=== PATIENT | female | born 2005 | race Caucasian/White ===

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

== ENCOUNTER 2024-05-07 22:09 | Emergency (ER) | payer MEDICAID, SELFPAY ==
[2024-05-07 22:09] VITALS: BP 124/74; PULSE 101; RESP 15; TEMP 36.6; O2SAT 100; BMI 22.4
--- NOTE | 2024-05-07 22:15 | EDS_ITS ---
HPI HPI - Female History of Present Illness Chief Complaint: Vag Bld, Preg PFSH PFSH Home Medications ?Medication ?Instructions ?Recorded ?Last Taken ?Type cephalexin 500 mg capsule 500 mg PO TID #21 caps 05/07 Unknown Rx Allergy/AdvReac Type Severity Reaction Status Date / Time No Known Allergies Allergy Verified 05/07/24 22:09 Surgical History History of appendectomy Social History (Updated 05/07/24 @ 22:24 by Blanche Mota) household members: significant other housing: house Smoking Status: Current every day smoker tobacco type: e-cigarettes EXAM Physical Exam Const Vital Signs: 05/07/24 22:09 Temperature 97.9 F Temperature Source Temporal Pulse Rate 101 H Respiratory Rate 15 Blood Pressure 124/74 H Blood Pressure Mean 90 Pulse Ox 100 Oxygen Delivery Method Room Air [facility] MDM Narrative Medical decision making narrative: HISTORY OF PRESENT ILLNESS: 18-year-old female here with concern for lower abdominal cramping, red-brown bleeding. Notes been intermittent for last 2 days. No she is approximate 15 weeks . Notes she is a G 1 P 0. Notes no pain now but notes intermittent spotting. REVIEW OF SYSTEMS: Pertinent positives: Abdominal cramping, vaginal bleeding Pertinent negatives: Vomiting, fever, urinary complaint PHYSICAL EXAM: Nursing triage notes reviewed, Vital signs reviewed Constitutional: please see mdm HENT: MMM Eyes: Pupils equal round and reactive to light, Extraocular muscles intact Neck: No stridor, no JVD, full neck ROM Lungs: Clear to auscultation, No wheezing or rales. No increased work of breathing, no conversational dyspnea, no accessory muscle use, no nasal flaring. No respiratory distress noted Heart: Regular rate and rhythm, No murmurs, No rubs and No gallops, 2+ distal pulses (radial, femoral, posterior tibial) in all extremities Abdomen: Soft, gravid uterus, there is no tenderness, rigidity, rebound or guarding, no obvious peritoneal signs, no palpable pulsatile abdominal masses, no auscultated abdominal bruit : No CVAT Extremities: No edema Neuro: No new focal neurological deficits, cranial nerves II through XII intact, 5/5 strength in all present extremities. Intact sensation to light touch in all present extremities, 2+ reflexes bilateral patella tendons. Skin: No rash or lesions noted MEDICAL DECISION MAKING: Chief Complaint: Abdominal cramping, vaginal bleeding External records reviewed: Reviewed patient's prior imaging studies. No recent ultrasounds noted Factors affecting care: none Social determinants of health: none History obtained from others: none Consults: none [facility] Narrative: Patient was initially hemodynamically stable, afebrile and nontoxic-appearing. Exam with gravid uterus otherwise benign abdomen. I considered the following differential diagnosis: Miscarriage, placental abruption, I obtained labs including blood type, CBC, BMP, urinalysis and pelvic ultrasound. Pelvic police crime scene technician need to be called in. ALL IMAGES (IF OBTAINED) HAVE BEEN PERSONALLY REVIEWED AND INTERPRETED BY MYSELF. CBC with no leukocytosis, noted mild anemia, no thrombocytopenia BMP with mild hypokalemia otherwise no significant electrolyte abnormalities, no sign of endorgan hypoperfusion or metabolic acidosis with a normal anion gap and bicarb Urinalysis with signs of inflammation and asymptomatic bacteria. Will send for culture and write Keflex. hCG Quant greater than 37,000 consistent with second trimester . Awaiting transvaginal ultrasound The patient and/or family, caregivers express understanding. The patient and/or family, caregivers agrees with the plan. Shared decision making: I will have a discussion with the patient and or visitors regarding risk/benefits of further testing or admission. They will be made aware of of the risk/benefits inherent in this decision they will be given the opportunity to voice understanding. Total critical care time today provided was at least 0 minutes. This excludes separately billable procedures. Critical care time (if documented) is secondary to the patient having high probability of clinically significant/life threatening deterioration in the patient's condition which required my urgent intervention. Impression: 1. Second trimester 2. Abdominal pain 3. Vaginal bleed Dispo: Pending ultrasound and final disposition. Signed out to overnight physician ( Dr. Pham) pending ultrasound, ABO blood type. This note was generated with [employer] dictation software. It may contain incorrect words, spelling, and punctuation that were not noted in review of the chart prior to signing. Lab Data Labs: Laboratory Results - last 24 hr 05/07/24 05/07/24 22:45 22:53 WBC 10.3 RBC 4.02 L Hgb 11.9 L Hct 34.3 L MCV 85.3 MCH 29.6 MCHC 34.7 RDW Std Deviation 39.1 RDW Coeff of Yessy 12.7 Plt Count 317 MPV 9.1 Immature Gran % (Auto) 0.400 Neut % (Auto) 57.4 Lymph % (Auto) 31.1 [place] % (Auto) 8.2 Eos % (Auto) 2.5 Baso % (Auto) 0.4 Absolute Neuts (auto) 5.9 Absolute Lymphs (auto) 3.20 Nucleated RBC % 0 Sodium 137 Potassium 3.3 L Chloride 106 Carbon Dioxide 25.0 Anion Gap 6 BUN 7 Creatinine 0.43 L Estim Creat Clear Calc 212.28 Est GFR (MDRD) Af Amer 239 Est GFR (MDRD) Non-Af 197 BUN/Creatinine Ratio 16.1 Glucose 92 Calcium 8.9 HCG, Quant 27573 H Urine Color Yellow Urine Clarity Cloudy Urine pH 6.0 Ur Specific Ray 1.025 Urine Protein 30 H Urine Glucose (UA) Normal Urine Ketones 50 H Urine Occult Blood 250 H Urine Nitrite Negative Urine Bilirubin Negative Urine Urobilinogen 1 H Ur Leukocyte Esterase 500 H Urine RBC 0-5 SEEN Urine WBC 25-50 SEEN Ur Squamous Epith Cells 10-25 SEEN Urine Bacteria 2+ Urine Mucus 1+ Discharge Plan Triage Chief Complaint: Vag Bld, Preg ED Provider: Joseph Zaragoza Dx/Rx/DC Orders Instructions: ED Pelvic Pain Preg UKO 2 or 3 Tri Prescriptions: New cephalexin 500 mg capsule 500 mg PO TID Qty: 21 0RF Primary Care Provider: Oseas Alvarez Referrals: Aldo Collins MD [Med Staff - Active Staff] - Activity Restrictions/Additional Instructions: Thank you for trusting us with your care today! Please take Tylenol (2 pills, 650 mg) every 6 hours as needed for pain and fever control. Your urine showed signs of inflammation and bacteria. This can sometimes cause issues going forward in so I sent your urine for culture and we will prescribe you antibiotics. Please take antibiotics as prescribed until course is complete. Please return to the emergency department if your symptoms change or worsen. Please follow with your primary care physician for further outpatient evaluation and management. Print Language: Fijian
--- NOTE | 2024-05-07 22:17 | US_ITS ---
PROCEDURE: OB LIMITED (NO BIOMETRICS) REASON FOR EXAM: Lower pelvic pain and cramping, vaginal bleeding dark brown x2 days COMPARISON: None. FINDINGS: Comments: Single live intrauterine with heart tones 152 beats per minute. Presentation is cephalic. Anterior placenta without evidence of previa. Small hypoechoic area visualized along the anterior aspect of the uterine wall may represent possible area of placenta abruption versus dilated vessels. Cervix appears closed. Cervical length 3.5 cm. Amniotic fluid subjectively appears within limits. Maximum pocket 4 cm. Adnexa appear unremarkable. No free fluid. ESTIMATED GESTATIONAL AGE: By LMP: 15 weeks and 4 days ESTIMATED DATE OF DELIVERY: By LMP: 10/25/2024 US/OB Limited (No Biometrics) IMPRESSION: Single live intrauterine with heart tones 152 beats per minute. . Anterior placenta without evidence of previa. Small hypoechoic area visualized along the anterior aspect of the uterine wall may represent possible area of placenta abruption versus dilated vessels. Cervix ap pears closed. Cervical length 3.5 cm. Clinically correlate may follow-up with repeat Ob ultrasound. Amniotic fluid subjectively appears within limits. Maximum pocket 4 cm. Reading Location: [id number]
[2024-05-07 23:00] LABS: Absolute Neutrophil Count 5.9 X10^3/uL (2.0-7.7); Basophil# 0.04 X10^3/uL; Basophil% 0.4 % (0-1); Eosinophil# 0.26 X10^3/uL; Eosinophils% 2.5 % (0-5); Hematocrit 34.3 % (37-47); Hemoglobin 11.9 g/dL (12.0-15.0); Lymphocyte % 31.1 % (19-41); Mean Corp Hgb Conc 34.7 g/dL (32-36); Mean Corpuscular Hgb 29.6 pg (27.0-32.0); Mean Corpuscular Volume 85.3 fL (81-99); Mean Platelet Vol. 9.1 fl (6.2-12.0); Monocyte# 0.84 X10^3/uL; Monocyte% 8.2 % (0-10); NRBC Flagged by Analyzer 0 % (0-5); Neutrophil # 5.92 X10^3/uL (2.7-7.7); Neutrophil % 57.4 % (47-70); Platelet Count 317 K/mm3 (150-450); RBC Distribution Width CV 12.7 % (11.6-14.6); RBC Distribution Width SD 39.1 fl (35.1-43.9); Red Blood Count 4.02 M/mm3 (4.2-5.4); White Blood Count 10.3 K/mm3 (4.4-11.0)
[2024-05-07 23:02] LABS: Color, Urine Yellow (Yellow); Glucose, Dipstick Normal (Normal); Ketone-Dipstick 50 mg/dl (Negative); Leukocyte Esterase-Dipstick 500 /ul (Negative); Nitrite-Dipstick Negative (Negative); Occult Blood-Urine 250 /ul (Negative); Protein-Dipstick 30 mg/dl (Negative); Specific Gravity, Urine 1.025 (1.002-1.030); Urine Bilirubin Dipstick Negative (Negative); Urine Clarity Cloudy (Clear); Urine Urobilinogen 1 mg/dl (Normal)
[2024-05-07 23:09] LABS: White Blood Cells 25-50 SEEN /hpf (0-5)
[2024-05-07 23:10] LABS: Bacteria 2+ /hpf (None Seen); Red Blood Cells-Urine 0-5 SEEN /hpf (0-5); Squamous Epithelial Cells - UA 10-25 SEEN /hpf (5-10)
[2024-05-07 23:11] LABS: Mucous, Urine 1+ /hpf (<or=2+)
[2024-05-07 23:13] LABS: Anion Gap 6 (5-15); BUN 7 mg/dL (7-18); BUN/Creat Ratio 16.1 RATIO (10-20); Calcium,Total 8.9 mg/dL (8.5-10.1); Chloride 106 mmol/L (98-107); Creatinine, Serum 0.43 mg/dL (0.55-1.02); EST Glomerular Filtration Rate 197 mL/min (>60); Est Glom Filt Rate - Afr Amer 239 mL/min (>60); Estimated Creatinine Clearance 212.28 ml/min; Glucose 92 mg/dL (74-106); Potassium 3.3 mmol/L (3.5-5.1); Sodium Level 137 mmol/L (136-145)
[2024-05-07 23:36] LABS: hCG Titer Quant., Serum 37655 mIU/mL (1-3)
[2024-05-08 00:09] VITALS: BP 101/68; PULSE 89; RESP 18; O2SAT 100
--- NOTE | 2024-05-08 01:06 | ED.VIS.FEGU ---
HPI HPI - Female History of Present Illness Chief Complaint: Vag Bld, Preg PFSH PFSH Home Medications ?Medication ?Instructions ?Recorded ?Last Taken ?Type aspirin 81 mg tablet,delayed 81 mg PO DAILY 05/07/24 Unknown History release cephalexin 500 mg capsule 500 mg PO TID #21 caps 05/07/24 Unknown Rx Allergy/AdvReac Type Severity Reaction Status Date / Time No Known Allergies Allergy Verified 05/07/24 22:09 Surgical History History of appendectomy Social History (Updated 05/07/24 @ 22:24 by Blanche Mota) household members: significant other housing: house Smoking Status: Current every day smoker tobacco type: e-cigarettes EXAM Physical Exam Const Vital Signs: 05/07/24 22:09 05/08/24 00:09 Temperature 97.9 F Temperature Source Temporal Pulse Rate 101 H 89 Respiratory Rate 15 18 Blood Pressure 124/74 H 101/68 Blood Pressure Mean 90 79 Pulse Ox 100 100 Oxygen Delivery Method Room Air Room Air [employer] Lab Data Labs: Laboratory Results - last 24 hr 05/07/24 05/07/24 22:45 22:53 WBC 10.3 RBC 4.02 L Hgb 11.9 L Hct 34.3 L MCV 85.3 MCH 29.6 MCHC 34.7 RDW Std Deviation 39.1 RDW Coeff of Yessy 12.7 Plt Count 317 MPV 9.1 Immature Gran % (Auto) 0.400 Neut % (Auto) 57.4 Lymph % (Auto) 31.1 [place] % (Auto) 8.2 Eos % (Auto) 2.5 Baso % (Auto) 0.4 Absolute Neuts (auto) 5.9 Absolute Lymphs (auto) 3.20 Nucleated RBC % 0 Sodium 137 Potassium 3.3 L Chloride 106 Carbon Dioxide 25.0 Anion Gap 6 BUN 7 Creatinine 0.43 L Estim Creat Clear Calc 212.28 Est GFR (MDRD) Af Amer 239 Est GFR (MDRD) Non-Af 197 BUN/Creatinine Ratio 16.1 Glucose 92 Calcium 8.9 HCG, Quant 84120 H Urine Color Yellow Urine Clarity Cloudy Urine pH 6.0 Ur Specific [place] 1.025 Urine Protein 30 H Urine Glucose (UA) Normal Urine Ketones 50 H Urine Occult Blood 250 H Urine Nitrite Negative Urine Bilirubin Negative Urine Urobilinogen 1 H Ur Leukocyte Esterase 500 H Urine RBC 0-5 SEEN Urine WBC 25-50 SEEN Ur Squamous Epith Cells 10-25 SEEN Urine Bacteria 2+ Urine Mucus 1+ Blood Type O POSITIVE Radiography Diagnostic Testing: Clinical Impression(s) from Imaging Studies Obstetrics Ultrasound 05/07/24 22:17 IMPRESSION: Single live intrauterine with heart tones 152 beats per minute. . Anterior placenta without evidence of previa. Small hypoechoic area visualized along the anterior aspect of the uterine wall may represent possible area of placenta abruption versus dilated vessels. Cervix appears closed. Cervical length 3.5 cm. Clinically correlate may follow-up with repeat Ob ultrasound. Amniotic fluid subjectively appears within limits. Maximum pocket 4 cm. Reading Location: [id number] Discharge Plan Triage Chief Complaint: Vag Bld, Preg ED Provider: Joseph Zaragoza Dx/Rx/DC Orders Instructions: ED Pelvic Pain Preg UKO 2 or 3 Tri Prescriptions: New cephalexin 500 mg capsule 500 mg PO TID Qty: 21 0RF No Action aspirin 81 mg tablet,delayed release (DR/EC) 81 mg PO DAILY Primary Care Provider: Oseas Alvarez Referrals: Aldo Collins MD [Med Staff - Active Staff] - Activity Restrictions/Additional Instructions: Thank you for trusting us with your care today! Please take Tylenol (2 pills, 650 mg) every 6 hours as needed for pain and fever control. Your urine showed signs of inflammation and bacteria. This can sometimes cause issues going forward in so I sent your urine for culture and we will prescribe you antibiotics. Please take antibiotics as prescribed until course is complete. Please return to the emergency department if your symptoms change or worsen. Please follow with your primary care physician for further outpatient evaluation and management. Print Language: Setswana
[2024-05-08] MEDS: Cephalexin 250 MG Capsule 500 MG PO (01:13)
== END 2024-05-08 01:19 | disposition home or self-care (01) ==
PROVIDERS: Emergency Provider Emergency Medicine; PCP Family Medicine; Visit Provider Emergency Medicine
DX: O20.9 Hemorrhage in early pregnancy, unspecified (principal); O99.891 Other specified diseases and conditions complicating pregnancy; R10.30 Lower abdominal pain, unspecified; R82.998 Other abnormal findings in urine; O99.012 Anemia complicating pregnancy, second trimester; O99.282 Endocrine, nutritional and metabolic diseases complicating pregnancy, second trimester; E87.6 Hypokalemia; F17.290 Nicotine dependence, other tobacco product, uncomplicated; O99.332 Smoking (tobacco) complicating pregnancy, second trimester; Z3A.15 15 weeks gestation of pregnancy
CPT/HCPCS: 76815; 80048; 81001; 84702; 85025; 86900; 86901; 87086; 87088; 99282; A4216

== ENCOUNTER 2024-08-31 13:15 | Outpatient (CLI) | payer MEDICAID, SELFPAY ==
[2024-08-31 13:24] VITALS: BMI 29.7
[2024-08-31 13:34] VITALS: BP 117/65; PULSE 111; RESP 16; TEMP 36.4; O2SAT 91
[2024-08-31 14:03] LABS: Bacteria 0 SEEN /hpf (None Seen); Mucous, Urine 0 SEEN /hpf (<or=2+); White Blood Cells 0 SEEN /hpf (0-5)
[2024-08-31 14:04] LABS: Color, Urine Yellow (Yellow); Glucose, Dipstick Normal (Normal); Ketone-Dipstick Negative (Negative); Leukocyte Esterase-Dipstick 100 /ul (Negative); Nitrite-Dipstick Negative (Negative); Occult Blood-Urine 250 /ul (Negative); Protein-Dipstick 30 mg/dl (Negative); Specific Gravity, Urine 1.005 (1.002-1.030); Urine Bilirubin Dipstick Negative (Negative); Urine Clarity Sl. Cloudy (Clear); Urine Urobilinogen Normal (Normal)
[2024-08-31 14:12] LABS: Red Blood Cells-Urine > 100 SEEN /hpf (0-5)
[2024-08-31 14:13] LABS: Renal Epithelial Cells 0-5 SEEN /hpf (0-5); Squamous Epithelial Cells - UA 0-5 SEEN /hpf (5-10)
--- NOTE | 2024-08-31 19:10 | OB.TRI.NOTE ---
HPI - General HPI Narrative LESLIE AYOUB is a 19 F at 32 weeks gestation who presents with vaginal bleeding after intercourse. Maternal Data Information [facility] Calculator Estimated Delivery Date Method Current WG Current Estimate 10/25/24 Manual 32w 1d PFSH PFSH Home Medications ?Medication ?Instructions ?Recorded ?Last Taken ?Type aspirin 81 mg tablet,delayed 81 mg PO DAILY 05/07/24 08/29/24 08:00 History release 81 mg vits no.130-ferrous fum 1 tab PO DAILY 08/31/24 Unknown History 27 mg iron-folic acid 800 mcg tablet ( Vitamin) Allergy/AdvReac Type Severity Reaction Status Date / Time No Known Allergies Allergy Verified 08/31/24 13:29 Surgical History History of appendectomy Social History (Updated 05/07/24 @ 22:24 by Blanche Mota) household members: significant other housing: house Smoking Status: Current every day smoker tobacco type: e-cigarettes ROS Eyes Eyes: Denies blurry vision Cardiovascular Cardiovascular: Reports none; Denies chest pain at rest, chest pain with activity or dizziness Respiratory/Chest Respiratory/Chest: Denies cough or dyspnea Gastrointestinal Gastrointestinal: Reports none and other; Denies diarrhea or vomiting Genitourinary Genitourinary: Denies dysuria Musculoskeletal Musculoskeletal: Reports none Integumentary Integumentary: Reports none; Denies rash Neurologic Neurologic: Denies dizziness, headache(s) or other visual disturbances Psychiatric Psychiatric: Reports none Physical Exam Const alert and no apparent distress General Appearance: cooperative Orientation / Consciousness: awake Exam Limitations: no limitations HEENT normocephalic Eyes General Eye: normal appearance of both eyes Neck full ROM Chest inspection of chest normal Resp normal respiratory effort and normal air movement Effort and Inspection: symmetric chest movement Auscultation: clear to auscultation bilaterally Cardio regular rate GI soft to palpation, non-tender and non-distended Inspection: and other Back/Spine normal ROM Extremity full ROM, normal capillary refill and no calf tenderness Skin no rashes or lesions noted Neuro oriented x3 and CN's II-XII intact bilaterally Psych mental status grossly normal NST FHR Rate Baby A Baseline: 130 Variability:: Moderate Accelerations:: 15 x 15 Decelerations:: None NST Reactive:: Yes Uterine Activity:: none Assessment & Plan (1) Vaginal bleeding in : (2) 32 weeks gestation of : (3) PCB (post coital bleeding): PLAN: Plan CE closed- small amount of dark brown blood on glove No active bleeding Denies any cramps or contractions UA- sent for culture D/C home with follow up in office Pelvic rest Dr. Rodriguez notified of A&P
== END 2024-08-31 16:15 | disposition home or self-care (01) ==
LOC: WPOUT 13:19 → WP 13:23
PROVIDERS: PCP Family Medicine; Referring Provider Advanced Practice Midwife; Visit Provider Advanced Practice Midwife
DX: O99.891 Other specified diseases and conditions complicating pregnancy (principal); N93.0 Postcoital and contact bleeding; O99.333 Smoking (tobacco) complicating pregnancy, third trimester; F17.290 Nicotine dependence, other tobacco product, uncomplicated; Z3A.32 32 weeks gestation of pregnancy; Z79.82 Long term (current) use of aspirin
CPT/HCPCS: 59025; 59050; 81001; 87086; 87088; 99221; G0378

== ENCOUNTER 2024-10-12 01:00 | Inpatient (IN) | payer MEDICAID, SELFPAY ==
[2024-10-12] VITALS (82 sets, daily range): BP systolic 109–165; BP diastolic 55–102; PULSE 70–114; RESP 16–20; TEMP 36.5–37.9; O2SAT 88–98; BMI 34.1
--- OUTSIDE RECORDS SUMMARY | 2024-10-12 00:25 | XMS RPT_ITS | CCD ---
Author Organization [facility] Care Team Providers Care Manager Digital Ad Operations Name Role Phone Unavailable Primary Care Provider Unavailmars Alvarez MD, Dr. Farooq Primary Care Provider [phone] Dr. Joseph Zaragoza DO Attending Provider Dr. Joseph Zaragoza DO Emergency Provider [phone] Mitchell FAJARDO, Dr. Whitehead Other Provider Kaycee Pittman CNM Attending Provider Kaycee Pittman CNM Referring Provider Kaycee Pittman Attending Unavailable Kaycee Pittman Referring Unavailable Oseas Alvarez Primary Care Unavailable Donaldo East Attending Unavailable Oseas Alvarez Primary Care Unavailable Joseph Zaragoza Attending Unavailable Charley Medrano Consulting Unavailable Oseas Alvarez Primary Care Unavailable HALEY NAVARRO Attending Unavailable HALEY NAVARRO Attending Unavailable HALEY NAVARRO Referring Unavailable HALEY NAVARRO Attending Unavailable RAMON KARMON Referring Unavailable HALEY NAVARRO Attending Unavailable COREEN PURI Attending Unavailable KORIN MARTINEZ Primary Care Unavailable HALEY NAVARRO Attending Unavailable COREEN PURI Referring Unavailable RAMON, KARMON Referring Unavailable MARGUERITE MATHUR Attending Unavailable RAMON, KARMON Referring Unavailable RAMON KARMON Attending Unavailable RAMON, KARMON Attending Unavailable RAMON, KARMON Referring Unavailable Medications Current Medications Medication Drug Class(es) Dates Sig (Normalized) Sig (Original) aspirin 81 mg delayed release oral tablet (20 sources) Platelet Aggregation Inhibitor, Nonsteroidal Anti-inflammatory Drug Start: 04-04-2024 take 1 tablet by mouth once daily aspirin, enteric coated (ECOTRIN LOW STRENGTH) 81 mg EC tablet Indications: Uncertain dates, antepartum, unspecified trimester (HCC) Take 1 tablet by mouth once daily. 90 tablet 3 04/04/2024 Active azithromycin 500 mg oral tablet (1 source) Macrolide Antimicrobial Start: 04-06-2024 End: 04-06-2024 take 2 tablets by mouth once azithromycin (ZITHROMAX) 500 mg tablet Take 2 tablets by mouth one time only for 1 dose. 2 tablet 04/06/2024 04/06/2024 Active doxycycline monohydrate 100 mg oral capsule (1 source) Tetracycline-class Drug Start: 04-06-2024 End: 04-13-2024 take 1 capsule by mouth twice daily doxycycline monohydrate (MONODOX) 100 mg capsule Indications: Chlamydia infection Take 1 capsule by mouth two times a day for 7 days. 14 capsule 04/06/2024 04/13/2024 Active famotidine 20 mg oral tablet (10 sources) Histamine-2 Receptor Antagonist Start: 08-15-2024 take 1 tablet by mouth twice daily famotidine (PEPCID) 20 mg tablet Take 1 tablet by mouth two times a day. 60 tablet 4 08/15/2024 Active Vit No.101-Qubg-Zoigq ( Vitamin) 27 mg iron- 800 mcg tablet (1 source) Start: 08-31-2024 Vit No.125-Skqe-Ppdpg ( Vitamin) 27 mg iron- 800 mcg tablet Active 1 {tbl} PO DAILY August 31, 2024 12:00am vit,mamta 74/iron/folic ( VITAMIN 1+1 ORAL) (20 sources) vit,mamta 74/iron/folic ( VITAMIN 1+1 ORAL) Take by mouth once daily. Active Completed/Discontinued Medications Medication Drug Class(es) Dates Sig (Normalized) Sig (Original) cephalexin 500 mg oral capsule (4 sources) Cephalosporin Antibacterial Start: 05-07-2024 End: 08-31-2024 take 1 capsule by mouth three times daily Cephalexin 500 mg capsule Discontinued 500 mg PO THREE TIMES A DAY May 07, 2024 1:00am August 31, 2024 1:29pm Start: 07-22-2020 End: 12-20-2023 take 1 capsule by mouth every twelve hours Cephalexin 500 MG capsule Discontinued 500 mg PO EVERY 12 HOURS July 22, 2020 12:00am December 20, 2023 8:08am Desogestrel / Ethinyl Estradiol (1 source) Progestin, Estrogen Start: 08-03-2018 End: 04-04-2024 take 1 tablet by mouth once daily, then take 0.15 tablet by mouth once Desogestrel-Ethinyl Estradiol (APRI) 0.15-0.03 mg per tablet Indications: Encounter for BCP ( control pills) initial prescription , General counseling and advice for contraceptive management Take 1 tablet by mouth once daily. 3 Package 1 08/03/2018 04/04/2024 Discontinued dexamethasone 6 mg oral tablet (2 sources) Corticosteroid Start: 12-29-2022 End: 12-20-2023 take 1 tablet by mouth once daily Dexamethasone 6 mg tablet Discontinued 6 mg PO DAILY December 29, 2022 12:00am December 20, 2023 8:08am Pediatric Multivitamins-Fl (MULTIVITAMINS WITH FLUORIDE) 0.25 mg ORAL Chew (1 source) Start: 09-17-2006 End: 04-04-2024 take 1 tablet by mouth once daily Pediatric Multivitamins-Fl (MULTIVITAMINS WITH FLUORIDE) 0.25 mg ORAL Chew 1 tablet once a day po 100 3 09/17/2006 04/04/2024 Discontinued Problems Active Problems Problem Classification Problem Date Documented Da te Episodic/Chronic Allergic reactions (6 sources) Contact dermatitis due to poison hayde; Translations: [Allergic contact dermatitis due to plants, except food] 08-12-2022 Episodic Fracture of upper limb (1 source) Closed fracture of third metacarpal; Translations: [Unspecified fracture of other metacarpal bone, initial encounter for closed fracture] 12-28-2023 Episodic Hemorrhage during ; abruptio placenta; placenta previa (1 source) Threatened miscarriage; Translations: [Threatened ] 05-16-2024 Episodic Other complications of (1 source) Maternal obesity complicating , childbirth and the puerperium, antepartum; Translations: [Obesity complicating , second trimester] 10-10-2024 Chronic Other complications of (1 source) Urinary tract infection in ; Translations: [Unspecified infection of urinary tract in , unspecified trimester] 05-16-2024 Episodic Other complications of (4 sources) Excessive weight gain in , third trimester; Translations: [Edema or excessive weight gain in , without mention of hypertension, antepartum condition or complication] Onset: 09-05-2024 09-05-2024 Episodic Other female genital disorders (1 source) Vaginal bleeding; Translations: [Abnormal uterine and vaginal bleeding, unspecified] 05-16-2024 Chronic Other female genital disorders (1 source) Abnormal uterine and vaginal bleeding, unspecified; Translations: [Abnormal uterine and vaginal bleeding, unspecified] Onset: 09-07-2024 Chronic Other screening for suspected conditions (not mental disorders or infectious disease) (5 sources) Patient encounter status; Translations: [Encounter for other specified screening] Onset: 07-04-2024 06-09-2024 Episodic Polyhydramnios and other problems of amniotic cavity (14 sources) Polyhydramnios; Translations: [Polyhydramnios, third trimester, not applicable or unspecified] Onset: 09-19-2024 09-19-2024 Episodic Residual codes; unclassified (1 source) Gestation period, 10 weeks; Translations: [10 weeks gestation of ] 04-04-2024 Episodic Residual codes; unclassified (3 sources) Gestation period, 16 weeks; Translations: [16 weeks gestation of ] 05-11-2024 Episodic Residual codes; unclassified (1 source) Gestation period, 23 weeks; Translations: [23 weeks gestation of ] 07-04-2024 Episodic Residual codes; unclassified (1 source) Gestation period, 27 weeks; Translations: [27 weeks gestation of ] 07-27-2024 Episodic Residual codes; unclassified (1 source) Gestation period, 29 weeks; Translations: [29 weeks gestation of ] 08-15-2024 Episodic Residual codes; unclassified (2 sources) Gestation period, 32 weeks; Translations: [32 weeks gestation of ] 09-05-2024 Episodic Residual codes; unclassified (2 sources) Gestation period, 34 weeks; Translations: [34 weeks gestation of ] 09-19-2024 Episodic Residual codes; unclassified (1 source) Gestation period, 36 weeks; Translations: [36 weeks gestation of ] 10-03-2024 Episodic Residual codes; unclassified (1 source) 36 weeks gestation of ; Translations: [36 weeks gestation of (HCC)] Onset: 10-03-2024 Episodic Residual codes; unclassified (1 source) 34 weeks gestation of ; Translations: [34 weeks gestation of (HCC)] Onset: 09-19-2024 Episodic Residual codes; unclassified (1 source) 32 weeks gestation of ; Translations: [32 weeks gestation of ([facility])] Onset: 09-05-2024 Episodic Residual codes; unclassified (1 source) 29 weeks gestation of ; Translations: [29 weeks gestation of (HCC)] Onset: 08-15-2024 Episodic Residual codes; unclassified (1 source) 27 weeks gestation of ; Translations: [27 weeks gestation of ([facility])] Onset: 07-27-2024 Episodic Residual codes; unclassified (2 sources) Gestation period, 37 weeks; Translations: [37 weeks gestation of ] 10-10-2024 Episodic Syncope (3 sources) Syncope and collapse; Translations: [Syncope and collapse] 11-24-2018 Episodic Unclassified (1 source) Excessive weight gain in , third trimester ([facility]) 09-05-2024 Viral infection (2 sources) Disease caused by 2019-nCoV; Translations: [COVID-19] 12-29-2022 Episodic Past or Other Problems Problem Classification Problem Date Documented Da te Episodic/Chronic Bacterial infection; unspecified site (20 sources) Chlamydial infection; Translations: [Chlamydial infection, unspecified] Onset: 04-06-2024 04-06-2024 Episodic Other connective tissue disease (1 source) Pain in left hand; Translations: [Pain in left hand] Onset: 01-13-2024 Episodic Other and delivery including normal (20 sources) with uncertain dates; Translations: [Encounter for supervision of normal , unspecified, unspecified trimester] Onset: 04-04-2024 Resolved: 04-04-2024 04-04-2024 Episodic Residual codes; unclassified (1 source) 23 weeks gestation of ; Translations: [23 weeks gestation of ([facility])] Onset: 07-04-2024 Episodic Residual codes; unclassified (1 source) 16 weeks gestation of ; Translations: [16 weeks gestation of ] Onset: 05-11-2024 Episodic Results Test Name Value Interpretation Reference Range Facility Examination level ultrasound on 10-10-2024 [facility] Radiology Study observation (narrative) [facility] URINE OB DIP B/Oon Glucose Ql (U) Negative Neg mg/dL [facility] Interpretation and review of laboratory results Normal [facility] Protein.monoclonal (U) [Mass/Vol] 30 mg/dL Neg [facility] C. trachomatis+N. gonorrhoea e DNA QUINTIN+probe Ql (Unsp spec)on 10-03-2024 C. trachomatis rRNA QUINTIN+probe Ql (Unsp spec) Not detected Normal Not detected [place] Comment on above: Order Comment: Speci men Type: SWAB Ordering Facility: [facility] Address: [address] [place] [address] Performed By: #### 3 6902-5 #### [facility] CLIA [id number] [address] [place] [address] [place] N. gonorrhoeae rRNA QUINTIN+probe Ql (Unsp spec) Not detected Normal Not detected [place] Comment on above: Order Comment: Speci men Type: SWAB Ordering Facility: [facility] Address: [address] [place] [address] Performed By: #### 3 6902-5 #### [facility] CLIA [id number] [address] [place] [address] [place] ROUTINE, GROUP B ST REPTOCOCCUS BY PCRon 10-03-2024 ROUTINE, GROUP B STREPTOCOCCUS BY PCR Not detected Normal [place] Comment on above: Performed By: #### M AT21 #### [facility] CLIA [id number] [address] [place] [address] URINE OB DIP B/Oon 5 Glucose Ql (U) Negative Neg mg/dL [facility] Protein.monoclonal (U) [Mass/Vol] Negative Neg mg/dL [facility] CNPNon 09-19-2024 CNPN Telephone (OBGYWM) FATOUMATA CLARK ([id number]) 3 F Date Time Provider Department 09/19/24 HALEY NAVARRO OBGYWAlis During your visit today, we recorded the following information about you: Denise Combs RN 09/19/2024 4:40 PM Signed Haley Navarro MD to [facility] Ob-Printer Helper Pool 09/19/24 3:55 PM Result Note Needs growth US in 4 weeks. Polyhydramnios on US today. Haley Navarro MD OBSTETRIC ULTRASOUND I Denise Combs RN 09/19/2024 4:40 PM Signed Tried reaching Pt via phone; However, voicemail box is full at this time and unable to leave a voicemail. Mediastay message sent to Pt. Denise Combs RN Allergies As of Date: 09/19/2024 (No Known Allergies) Date Reviewed: 09/19/2024 Reviewed by: Haley Navarro MD - Fully Assessed Reason for Visit: Appointment [186] Prescriptions as of 09/20/2024 - famotidine (PEPCID) 20 mg tablet Take 1 tablet by mouth two times a day. - aspirin, enteric coated (ECOTRIN LOW STRENGTH) 81 mg EC tablet Take 1 tablet by mouth once daily. - vit,mamta 74/iron/folic ( VITAMIN 1+1 ORAL) Take by mouth once daily. Problem List As Of Date 09/19/2024 Noted Resolved Encounter for care in first trimester *04/04/2024 04/04/2024 Supervision of normal first teen in f*04/04/2024 Chlamydia infection [A74.9] 04/06/2024 Polyhydramnios in third trimester (HCC) [O40.3X*09/19/2024 Encounter Status:Closed by MARGUERITE SANDERS on 09/20/24 Normal [place] Examination level ultrasound on 09-19-2024 [facility] Urine Cultureon 09-03-2024 [facility] Mixed Gram Positive Organisms [place] Count 25,000-50,000 MIXC Mixed contaminants. Submit a new specimen if indicated. Normal [facility] Comment on above: Performed By: #### M 100.2200 ####[facility] [id number] [place], [address] Bilirubin Test strip Ql (U)O rdered By: Kaycee Pittman on 08-31-2024 Bilirubin Ql (U) Negative Negative [facility] Ketones Test strip Ql (U)Ord ered By: Kaycee Pittman on 08-31-2024 Ketones Ql (U) Negative Negative [facility] Microscopic analysis of urin e for red blood cells (RBC)Ordered By: Kaycee Pittman on 08-31-2024 Microscopic analysis of urine for red blood cells (RBC) > 100 SEEN /hpf 0-5 [facility] Mucus LM Ql (Urine sed)Order ed By: Kaycee Pittman on 08-31-2024 Mucus Ql (Urine sed) 0 SEEN /hpf [facility] Nitrite Test strip Ql (U)Ord ered By: Kaycee Pittman on 08-31-2024 Nitrite Ql (U) Negative Negative [facility] OB Triage Physician Noteon 0 08-31-2024 OB Triage Physician Note [facility] Medical Records Department [address] [place] [address] OB Triage Physician Note 08/31/24 1910 MR#: [id number] Acct: [id number] Name: FATOUMATA CLARK Rep #: [id number] : 2005 19 From: Kaycee Pittman CNM PCP: Dr. Oseas Alvarez MD Status:DEP CLI Y Location: [facility] FATOUMATA CLARK, is a 19 F at 32 weeks gestation who presents with vaginal bleeding after intercourse. Maternal Data Information URIAH Calculator Estimated Delivery Date Method Current WG Current Estimate 10/25/24 Manual 32w 1d PFSH PFS Home Medications ???Medication ???Instructions ???Recorded ???Last Taken ???Type aspirin 81 mg tablet,delayed 81 mg PO DAILY 05/07/24 08/29/24 0 8:00 History release 81 mg vits no.130-ferrous fum 1 tab PO DAILY 08/31/24 Unknown Hi story 27 mg iron-folic acid 800 mcg tablet ( Vitamin) Allergy/AdvReac Type Severity Reaction Status Date / Time No Known Allergies Allergy Verified 08/31/24 13:29 Surgical History History of appendectomy Social History (Updated 05/07/24 @ 22:24 by Blanche Mota) household members: significant other housing: house Smoking Status: Current every day smoker tobacco type: e-cigarettes ROS Eyes Eyes: Denies blurry vision Cardiovascular Cardiovascular: Reports none; Denies chest pain at rest, chest pain with activity or dizziness Respiratory/Chest Respiratory/Chest: Denies cough or dyspnea Gastrointestinal Gastrointestinal: Reports none and other; Denies diarrhea or vomiting Genitourinary Genitourinary: Denies dysuria Musculoskeletal Musculoskeletal: Reports none Integumentary Integumentary: Reports none; Denies rash Neurologic Neurologic: Denies dizziness, headache(s) or other visual disturbances Psychiatric Psychiatric: Reports none Physical Exam Const alert and no apparent distress General Appearance: cooperative Orientation / Consciousness: awake Exam Limitations: no limitations HEENT normocephalic Eyes General Eye: normal appearance of both eyes Neck full ROM Chest inspection of chest normal Resp normal respiratory effort and normal air movement Effort and Inspection: symmetric chest movement Auscultation: clear to auscultation bilaterally Cardio regular rate GI soft to palpation, non-tender and non-distended Inspection: and other Back/Spine normal ROM Extremity full ROM, normal capillary refill and no calf tenderness Skin no rashes or lesions noted Neuro oriented x3 and CN's II-XII intact bilaterally Psych mental status grossly normal NST FHR Rate Baby A Baseline: 130 Variability:: Moderate Accelerations:: 15 x 15 Decelerations:: None NST Reactive:: Yes Uterine Activity:: none Assessment Plan (1) Vaginal bleeding in : (2) 32 weeks gestation of : (3) PCB (post coital bleeding): PLAN: Plan CE closed- small amount of dark brown blood on glove No active bleeding Denies any cramps or contractions UA- sent for culture D/C home with follow up in office Pelvic rest Dr. Navarro notified of A P 08/31/241914 Date Kaycee Pittman [facility] Cosigner Signature (if applicable): Date CC: MIGUEL Pittman; Dr. Oseas Alvarez MD Signed Normal [facility] Protein Test strip Ql (U)Ord ered By: Kaycee Pittman on 08-31-2024 Protein Ql (U) 30 mg/dl High Negative [facility] Squamous epithelial cells de tection in urine sediment by light microscopyOrdered By: Kaycee Pittman on 08-31-2024 Epithelial cells.squamous LM Ql (Urine sed) 0-5 SEEN /hpf -10 [facility] Urinalysis, Completeon 08-31 EPI,RENAL 0-5 SEEN Normal 0-5 [facility] Comment on above: Order Comment: CLEAN CATCH Performed By: #### L 400.0001 #### [facility] [address] [place], [address] EPI,SQUAMOUS 0-5 SEEN Normal -10 [facility] Comment on above: Order Comment: CLEAN CATCH Performed By: #### L 400.0001 #### [facility] [address] [place], [address] RBC > 100 SEEN Normal [address] Comment on above: Order Comment: CLEAN CATCH Performed By: #### L 400.0001 #### [facility] [address] [place], [address] BACTERIA 0 SEEN Normal None Seen [facility] Comment on above: Order Comment: CLEAN CATCH Performed By: #### L 400.0001 #### [facility] [address] [place], [address] Mucus Ql (Urine sed) [address] [facility] Comment on above: Order Comment: CLEAN CATCH Performed By: #### L 400.0001 #### [facility] [address] [place], [address] WBC 0 SEEN Normal [address] [place] [address] Comment on above: Order Comment: CLEAN CATCH Performed By: #### L 400.0001 #### [facility] [place], [address] Urine clarityOrdered By: Jos Pittman on 08-31-2024 Clarity (U) Sl. Cloudy Clear [facility] Urine color determinationOrd ered By: Kaycee Pittman on 08-31-2024 Color (U) Yellow Yellow [facility] Urine glucose detectionOrder ed By: Kaycee Pittman on 08-31-2024 Glucose Ql (U) Normal mg/dl Normal [facility] Urine leukocyte esterase det ection by dipstickOrdered By: Kaycee Pittman on 08-31-2024 Leukocyte esterase Test strip Ql (U) 100 /ul High Negative [facility] Urine pHOrdered By: Kaycee Pittman on 08-31-2024 pH (U) 7.0 [pH] 5.0 - 8.0 [facility] Urine sediment bacteria coun t by microscopy (number/high power field)Ordered By: Kaycee Pittman on 08-31-2024 Bacteria LM.HPF (Urine sed) [#/Area] 0 /[HPF] None Seen [facility] Urine sediment renal epithel ial cell count by microscopy (number/high power field)Ordered By: Kaycee Pittman on 08-31-2024 Epithelial cells.renal LM.HPF (Urine sed) [#/Area] 0 /[HPF] 0-5 [facility] Urine specific gravity measu rementOrdered By: Kaycee Pittman on 08-31-2024 Specific gravity (U) [Rel density] 1.005 1.002-1.030 [facility] Urine urobilinogen measureme ntOrdered By: Kaycee Pittman on 08-31-2024 Urobilinogen Ql (U) Normal mg/dl Normal [facility] White blood cell countOrdere d By: Kaycee Pittman on 08-31-2024 White blood cell count 0 SEEN /hpf 0-5 [facility] CBC W Auto Differential pane l (Bld)on 07-27-2024 Basophils (Bld) [#/Vol] 0.07 10*3/uL Normal <0.11 [place] Comment on above: Order Comment: Speci men Type: BLOOD SPECIMEN Ordering Facility: [facility] Address: [address] [place] [address] Performed By: #### 1 6128-1 #### [facility] CLIA [id number] [address] [place] [address] [place] Basophils/100 WBC (Bld) 0.5 % Normal [facility] Comment on above: Order Comment: Speci men Type: BLOOD SPECIMEN Ordering Facility: [facility] Address: [address] [place] [address] Performed By: #### 1 6128-1 #### [facility] CLIA [id number] [address] [place] [address] [place] Differential cell count method Nom (Bld) Auto Normal [place] Comment on above: Order Comment: Speci men Type: BLOOD SPECIMEN Ordering Facility: [facility] Address: [address] [place] [address] Performed By: #### 1 6128-1 #### [facility] CLIA [id number] [address] [place] [address] [place] Eosinophils (Bld) [#/Vol] 0.22 10*3/uL Normal <0.46 [place] Comment on above: Order Comment: Speci men Type: BLOOD SPECIMEN Ordering Facility: [facility] Address: [address] [place] [address] Performed By: #### 1 6128-1 #### [facility] CLIA [id number] [address] [place] [address] [facility] Eosinophils/100 WBC (Bld) 1.7 % Normal [place] Comment on above: Order Comment: Speci men Type: BLOOD SPECIMEN Ordering Facility: [facility] Address: [address] [place] [address] Performed By: #### 1 6128-1 #### [facility] CLIA [id number] [address] [place] [address] [place] Erythrocyte distribution width (RBC) [Ratio] 12.9 % Normal 11.5-15.0 [place] Comment on above: Order Comment: Speci men Type: BLOOD SPECIMEN Ordering Facility: [facility] Address: [address] [place] [address] Performed By: #### 1 6128-1 #### [facility] CLIA [id number] [address] [place] [address] [place] Hematocrit (Bld) [Volume fraction] 33.3 % Low 36.0-46.0 [place] Comment on above: Order Comment: Speci men Type: BLOOD SPECIMEN Ordering Facility: [facility] Address: [address] [place] [address] Performed By: #### 1 6128-1 #### [facility] CLIA [id number] [address] [place] [address] [place] Hemoglobin (Bld) [Mass/Vol] 11.4 g/dL Low 11.5-15.5 [place] Comment on above: Order Comment: Speci men Type: BLOOD SPECIMEN Ordering Facility: [facility] Address: [address] [place] [address] Performed By: #### 1 6128-1 #### [facility] CLIA [id number] [address] [place] [address] [place] Immature granulocytes (Bld) [#/Vol] 0.39 10*3/uL High <0.10 [place] Comment on above: Order Comment: Speci men Type: BLOOD SPECIMEN Ordering Facility: [facility] Address: [address] [place] [address] Performed By: #### 1 6128-1 #### [facility] CLIA [id number] [address] [place] [address] [place] Immature granulocytes/100 WBC (Bld) 3.0 % Normal [place] Comment on above: Order Comment: Speci men Type: BLOOD SPECIMEN Ordering Facility: [facility] Address: [address] [place] [address] Performed By: #### 1 6128-1 #### [facility] CLIA [id number] [address] [place] [address] [place] Lymphocytes (Bld) [#/Vol] 2.51 10*3/uL Normal 1.00-4.00 [place] Comment on above: Order Comment: Speci men Type: BLOOD SPECIMEN Ordering Facility: [facility] Address: [address] [place] [address] Performed By: #### 1 6128-1 #### [facility] CLIA [id number] [address] [place] [address] [place] Lymphocytes/100 WBC (Bld) 19.1 % Normal [place] Comment on above: Order Comment: Speci men Type: BLOOD SPECIMEN Ordering Facility: [facility] Address: [address] [place] [address] Performed By: #### 1 6128-1 #### [facility] CLIA [id number] [address] [place] [address] [place] MCH (RBC) [Entitic mass] 29.5 pg Normal 26.0-34.0 [place] Comment on above: Order Comment: Speci men Type: BLOOD SPECIMEN Ordering Facility: [facility] Address: [address] [place] [address] Performed By: #### 1 6128-1 #### [facility] CLIA [id number] [address] [place] [address] [place] MCHC (RBC) [Mass/Vol] 34.2 g/dL Normal 30.5-36.0 [facility] Comment on above: Order Comment: Speci men Type: BLOOD SPECIMEN Ordering Facility: [facility] Address: [address] [place] [address] Performed By: #### 1 6128-1 #### [facility] CLIA [id number] [address] [place] [address] [place] MCV (RBC) [Entitic vol] 86.3 fL Normal 80.0-100.0 [facility] Comment on above: Order Comment: Speci men Type: BLOOD SPECIMEN Ordering Facility: [facility] Address: [address] [place] [address] Performed By: #### 1 6128-1 #### [facility] CLIA [id number] [address] [place] [address] [place] Monocytes (Bld) [#/Vol] 1.20 10*3/uL High <0.87 [place] Comment on above: Order Comment: Speci men Type: BLOOD SPECIMEN Ordering Facility: [facility] Address: [address] [place] [address] Performed By: #### 1 6128-1 #### [facility] CLIA [id number] [address] [place] [address] [place] Monocytes/100 WBC (Bld) 9.1 % Normal [facility] Comment on above: Order Comment: Speci men Type: BLOOD SPECIMEN Ordering Facility: [facility] Address: [address] [place] [address] Performed By: #### 1 6128-1 #### [facility] CLIA [id number] [address] [place] [address] [place] Neutrophils (Bld) [#/Vol] 8.74 10*3/uL High 1.45-7.50 [place] Comment on above: Order Comment: Speci men Type: BLOOD SPECIMEN Ordering Facility: [facility] Address: [address] [place] [address] Performed By: #### 1 6128-1 #### [facility] CLIA [id number] [address] [place] [address] [place] Neutrophils/100 WBC (Bld) 66.6 % Normal [place] Comment on above: Order Comment: Speci men Type: BLOOD SPECIMEN Ordering Facility: [facility] Address: [address] [place] [address] Performed By: #### 1 6128-1 #### [facility] CLIA [id number] [address] [place] [address] [place] Nucleated RBC (Bld) [#/Vol] 10*3/uL Normal <0.01 [place] Comment on above: Order Comment: Speci men Type: BLOOD SPECIMEN Ordering Facility: [facility] Address: [address] [place] [address] Performed By: #### 1 6128-1 #### [facility] CLIA [id number] [address] [place] [address] [place] Nucleated RBC/100 WBC (Bld) [Ratio] 0.0 /100 WBC Normal [place] Comment on above: Order Comment: Speci men Type: BLOOD SPECIMEN Ordering Facility: [facility] Address: [address] [place] [address] Performed By: #### 1 6128-1 #### [facility] CLIA [id number] [address] [place] [address] [place] Platelet mean volume (Bld) [Entitic vol] 9.0 fL Normal 9.0-12.7 [place] Comment on above: Order Comment: Speci men Type: BLOOD SPECIMEN Ordering Facility: [facility] Address: [address] [place] [address] Performed By: #### 1 6128-1 #### [facility] CLIA [id number] [address] [place] [address] [place] Platelets (Bld) [#/Vol] 300 10*3/uL Normal 150-400 [place] Comment on above: Order Comment: Speci men Type: BLOOD SPECIMEN Ordering Facility: [facility] Address: [address] [place] [address] Performed By: #### 1 6128-1 #### [facility] CLIA [id number] [address] [place] [address] [place] RBC (Bld) [#/Vol] 3.86 10*6/uL Low 3.90-5.20 [facility] Comment on above: Order Comment: Speci men Type: BLOOD SPECIMEN Ordering Facility: [facility] Address: [address] [place] [address] Performed By: #### 1 6128-1 #### [facility] CLIA [id number] [address] [place] [address] [place] WBC (Bld) [#/Vol] 13.13 10*3/uL High 3.70-11.00 [facility] Comment on above: Order Comment: Speci men Type: BLOOD SPECIMEN Ordering Facility: [facility] Address: [address] [place] [address] Performed By: #### 1 6128-1 #### [facility] CLIA [id number] [address] [place] [address] [place] GESTATIONAL GLUCOSE SCREEN, 1-HOUR, 50 GRAM, NON-FASTINGon 07-27-2024 Glucose [Mass/Vol] 118 mg/dL Normal 74-134 [facility] Comment on above: Order Comment: Speci men Type: BLOOD SPECIMEN Ordering Facility: [facility] Address: [address] [place] [address] Result Comment: [facility] Congress of Obstetricians and Gynecologists (Alirio/Marychuy) guidelines state a gestational diabetes mellitus positive screen is made, in women not previously diagnosed with overt diabetes, when the 1 hr plasma glucose level is equal to or above 140 mg/dL. The [facility] [place] recommends a 135 mg/dL cutoff. Performed By: #### G LTGST #### [facility] CLIA [id number] [address] [place] [address] [place] Reagin and Treponema pallidu m IgG and IgM [Interp]on 07-27-2024 T. pallidum IgG+IgM IA Ql (S) Non-Reactive Normal Nonreactive [place] Comment on above: Order Comment: Speci men Type: BLOOD SPECIMEN Ordering Facility: [facility] Address: [address] [place] [address] Performed By: #### 7 3752-8 #### [facility] CLIA [id number] [address] [place] [address] [place] Reagin+T pallidum IgG+IgM Se rPl-Impon 07-27-2024 Reagin and Treponema pallidum IgG and IgM [Interp] Cannot exclude recent Treponemal infection if specimen collected within 7-10 days after appearance of suspect lesions or 2-3 weeks after an exposure. Clinical correlation is required. Normal [place] Comment on above: Order Comment: Speci men Type: BLOOD SPECIMEN Ordering Facility: [facility] Address: [address] [place] [address] Performed By: #### 7 3752-8 #### [facility] CLIA [id number] [address] [place] [address] [place] Examination level ultrasound on 06-09-2024 Indication Standard anatomic survey Impression REMOTE READ The patient is referred for a detailed anatomic survey. - Single, live, intrauterine . - biometry is consistent with the established gestational age. - No malformations were visualized on a complete detailed anatomic survey. - The amniotic fluid volume is normal amount. - The placenta is anterior, fundal. - The Transabdominal cervical length measures 32.9 mm with no evidence of funneling or other dynamic changes. - Not all structural malformations can be detected by ultrasound examination. Recommendations Additional follow-up as clinically indicated. Maternal Assessment Height 157 cm Height (ft) 5 ft Height (in) 2 in Physical Exam Initial weight (lb) 135 lb Initial BMI 24.69 kg/m Maternal assessment other: 1 Para 0 Method Transabdominal ultrasound examination. View: Adequate visualization Noble . Number of fetuses: 1 Dating LMP on: 01/19/2024 GA by LMP 20 w + 1 d URIAH by LMP: 10/25/2024 GA by prior assessment 20 w + 1 d URIAH by prior assessment: 10/25/2024 Ultrasound examination on: 06/08/2024 GA by U/S based upon: AC, BPD, Femur, HC GA by U/S 20 w + 6 d URIAH by U/S: 10/20/2024 Assigned: based on stated URIAH, selected on 06/08/2024 Assigned GA 20 w + 1 d Assigned URIAH: 10/25/2024 General Evaluation Cardiac activity present. FHR 154 bpm. movements: present. Presentation: cephalic Placenta: Placental site: anterior, fundal Umbilical cord: Cord vessels: 3 vessel cord Amniotic fluid: Amount of AF: normal amount. MVP 6.6 cm Growth Overview Exam date GA BPD (mm) HC (mm) AC (mm) FL (mm) HL (mm) EFW (g) 06/08/2024 20w 1d 50.6 90% 178.5 55% 156.3 66% 34.2 83% 33.5 90% 370 74% Biometry Standard BPD 50.6 mm 21w 2d 90% Hadlock OFD 60.6 mm 19w 5d 46% Nicolaides HC 178.5 mm 20w 2d 55% Sunita Cerebellum tr 21.6 mm 20w 3d 81% Hill Nuchal fold 3.3 mm AC 156.3 mm 20w 6d 66% Hadlock Femur 34.2 mm 21w 0d 83% Sunita Humerus 33.5 mm 21w 3d 90% Sunita EFW 370 g 20w 4d 74% Hadlock EFW (lb) 0 lb EFW (oz) 13 oz EFW by: Hadlock (HC-AC-FL) Extended Associate [employer] 7.0 mm CM 4.9 mm 46% Nicolaides Extremities / Bony Struc FL / HC 0.19 61% Hadlock Other Structures FHR 154 bpm Anatomy Cranium: normal Lateral ventricles: normal Choroid plexus: normal Midline falx: normal Cavum septi pellucidi: normal Cerebellum: normal Cisterna magna: normal Head / Neck Vermis: Normal but not required for a standard anatomy exam Neck: Normal but not required for a standard anatomy exam Nuchal fold: Normal but not required for a standard anatomy exam Lips: normal Profile: Normal but not required for a standard anatomy exam Nose: Normal but not required for a standard anatomy exam Face Maxilla: Normal but not required for a standard anatomy exam Mandible: Normal but not required for a standard anatomy exam Orbits: Normal but not required for a standard anatomy exam Lens: Normal but not required for a standard anatomy exam 4-chamber view: normal RVOT view: normal LVOT view: normal 3-vessel view: normal 4-dhcjqd-yczjxlh view: normal Heart / Thorax Situs: situs solitus (normal) Aortic arch view: Normal but not required for a standard anatomy exam SVC: Normal but not required for a standard anatomy exam IVC: Normal but not required for a standard anatomy exam Cardiac axis: normal Rt lung: Normal but not required for a standard anatomy exam Lt lung: Normal but not required for a standard anatomy exam Diaphragm: Normal but not required for a standard anatomy exam Cord insertion: normal Stomach: normal Kidneys: normal Bladder: normal Genitals: normal Abdomen Abdom. wall: normal Cervical spine: normal Thoracic spine: normal Lumbar spine: normal Sacral spine: normal Arms: normal Legs: normal Rt upper arm: normal Rt forearm: normal Rt hand: normal Rt fingers: normal Lt upper arm: normal Lt forearm: normal Lt hand: normal Lt fingers: normal Rt upper leg: normal Rt lower leg: normal Rt foot: normal Lt upper leg: normal Lt lower leg: normal Lt foot: normal sex: male Wants to know sex: yes Maternal Structures Uterus / Cervix Uterus: Visualized Cervix: Visualized Approach: Transabdominal Cervical length 32.9 mm Other: Patient declined transvaginal ultrasound for cervical length. Ovaries / Tubes / Adnexa Rt ovary: Not visualized Lt ovary: Visualized Performed By: Ratna Yuan RDMS, RVT Read By: Jorge Patel M.D. MATERNAL MEDICINE [facility] C. trachomatis+N. gonorrhoea e DNA QUINTIN+probe Ql (Unsp spec)on 06-08-2024 C. trachomatis rRNA QUINTIN+probe Ql (Unsp spec) Not detected Normal Not detected [place] Comment on above: Order Comment: Speci men Type: BLOOD SPECIMEN Ordering Facility: [facility] Address: [address] [place] [address] Performed By: #### M AT21 #### [facility] CLIA [id number] [address] [facility] [place] [address] N. gonorrhoeae rRNA QUINTIN+probe Ql (Unsp spec) Not detected Normal Not detected [place] Comment on above: Order Comment: Speci men Type: BLOOD SPECIMEN Ordering Facility: [facility] Address: [address] [place] [address] Performed By: #### M AT21 #### [facility] CLIA [id number] [address] [facility] [place] [address] Examination level ultrasound on 06-08-2024 Radiology Study observation (narrative) [facility] CBC W Auto Differential pane l (Bld)on 05-11-2024 Basophils (Bld) [#/Vol] 0.03 10*3/uL Normal <0.11 [place] Comment on above: Order Comment: Speci men Type: BLOOD SPECIMEN Ordering Facility: [facility] Address: [address] [place] [address] Performed By: #### 5 7021-8 #### [facility] [id number] [address] [place] [address] [place] Basophils/100 WBC (Bld) 0.3 % Normal [facility] Comment on above: Order Comment: Speci men Type: BLOOD SPECIMEN Ordering Facility: [facility] Address: [address] [place] [address] Performed By: #### 5 7021-8 #### [facility] [id number] [address] [place] [address] [place] Differential cell count method Nom (Bld) Auto Normal [place] Comment on above: Order Comment: Speci men Type: BLOOD SPECIMEN Ordering Facility: [facility] Address: [address] [place] [address] Performed By: #### 5 7021-8 #### [facility] CLIA [id number] [address] [place] [address] [place] Eosinophils (Bld) [#/Vol] 0.19 10*3/uL Normal <0.46 [place] Comment on above: Order Comment: Speci men Type: BLOOD SPECIMEN Ordering Facility: [facility] Address: [address] [place] [address] Performed By: #### 5 7021-8 #### [facility] CLIA [id number] [address] [place] [address] [place] Eosinophils/100 WBC (Bld) 2.1 % Normal [place] Comment on above: Order Comment: Speci men Type: BLOOD SPECIMEN Ordering Facility: [facility] Address: [address] [place], [place] [address] Performed By: #### 5 7021-8 #### [facility] CLIA [id number] [address] [place] [address] [place] Erythrocyte distribution width (RBC) [Ratio] 13.0 % Normal 11.5-15.0 [place] Comment on above: Order Comment: Speci men Type: BLOOD SPECIMEN Ordering Facility: [facility] Address: [address] [place], [place] [address] Performed By: #### 5 7021-8 #### [facility] [id number] [address] [place] [address] [place] Hematocrit (Bld) [Volume fraction] 36.1 % Normal 36.0-46.0 [place] Comment on above: Order Comment: Speci men Type: BLOOD SPECIMEN Ordering Facility: [facility] Address: [address] [place] [address] Performed By: #### 5 7021-8 #### [facility] CLIA [id number] [address] [place] [address] [place] Hemoglobin (Bld) [Mass/Vol] 12.4 g/dL Normal 11.5-15.5 [place] Comment on above: Order Comment: Speci men Type: BLOOD SPECIMEN Ordering Facility: [facility] Address: [address] [place] [address] Performed By: #### 5 7021-8 #### [facility] CLIA [id number] [address] [place] [address] [place] Immature granulocytes (Bld) [#/Vol] 0.03 10*3/uL Normal <0.10 [place] Comment on above: Order Comment: Speci men Type: BLOOD SPECIMEN Ordering Facility: [facility] Address: [address] [place] [address] Performed By: #### 5 7021-8 #### [facility] CLIA [id number] [address] [place] [address] [place] Immature granulocytes/100 WBC (Bld) 0.3 % Normal [place] Comment on above: Order Comment: Speci men Type: BLOOD SPECIMEN Ordering Facility: [facility] Address: [address] [place] [address] Performed By: #### 5 7021-8 #### [facility] CLIA [id number] [address] [place] [address] [place] Lymphocytes (Bld) [#/Vol] 2.03 10*3/uL Normal 1.00-4.00 [place] Comment on above: Order Comment: Speci men Type: BLOOD SPECIMEN Ordering Facility: [facility] Address: [address] [place] [address] Performed By: #### 5 7021-8 #### [facility] CLIA [id number] [address] [place] [address] [place] Lymphocytes/100 WBC (Bld) 22.6 % Normal [place] Comment on above: Order Comment: Speci men Type: BLOOD SPECIMEN Ordering Facility: [facility] Address: [address] [place] [address] Performed By: #### 5 7021-8 #### [facility] CLIA [id number] [address] [place] [address] [place] MCH (RBC) [Entitic mass] 30.2 pg Normal 26.0-34.0 [place] Comment on above: Order Comment: Speci men Type: BLOOD SPECIMEN Ordering Facility: [facility] Address: [address] [place] [address] Performed By: #### 5 7021-8 #### [facility] CLIA [id number] [address] [place] [address] [place] MCHC (RBC) [Mass/Vol] 34.3 g/dL Normal 30.5-36.0 [facility] Comment on above: Order Comment: Speci men Type: BLOOD SPECIMEN Ordering Facility: [facility] Address: [address] [place] [address] Performed By: #### 5 7021-8 #### [facility] CLIA [id number] [address] [place] [address] [place] MCV (RBC) [Entitic vol] 87.8 fL Normal 80.0-100.0 [facility] Comment on above: Order Comment: Speci men Type: BLOOD SPECIMEN Ordering Facility: [facility] Address: [address] [place] [address] Performed By: #### 5 7021-8 #### [facility] CLIA [id number] [address] [place] [address] [place] Monocytes (Bld) [#/Vol] 0.72 10*3/uL Normal <0.87 [place] Comment on above: Order Comment: Speci men Type: BLOOD SPECIMEN Ordering Facility: [facility] Address: [address] [place] [address] Performed By: #### 5 7021-8 #### [facility] CLIA [id number] [address] [place] [address] [place] Monocytes/100 WBC (Bld) 8.0 % Normal [facility] Comment on above: Order Comment: Speci men Type: BLOOD SPECIMEN Ordering Facility: [facility] Address: [address] [place] [address] Performed By: #### 5 7021-8 #### [facility] CLIA [id number] [address] [place] [address] [place] Neutrophils (Bld) [#/Vol] 5.98 10*3/uL Normal 1.45-7.50 [place] Comment on above: Order Comment: Speci men Type: BLOOD SPECIMEN Ordering Facility: [facility] Address: [address] [place] [address] Performed By: #### 5 7021-8 #### [facility] CLIA [id number] [address] [place] [address] [place] Neutrophils/100 WBC (Bld) 66.7 % Normal [place] Comment on above: Order Comment: Speci men Type: BLOOD SPECIMEN Ordering Facility: [facility] Address: [address] [place] [address] Performed By: #### 5 7021-8 #### [facility] CLIA [id number] [address] [place] [address] [place] Nucleated RBC (Bld) [#/Vol] 10*3/uL Normal <0.01 [place] Comment on above: Order Comment: Speci men Type: BLOOD SPECIMEN Ordering Facility: [facility] Address: [address] [place] [address] Performed By: #### 5 7021-8 #### [facility] CLIA [id number] [address] [place] [address] [place] Nucleated RBC/100 WBC (Bld) [Ratio] 0.0 /100 WBC Normal [place] Comment on above: Order Comment: Speci men Type: BLOOD SPECIMEN Ordering Facility: [facility] Address: [address] [place] [address] Performed By: #### 5 7021-8 #### [facility] CLIA [id number] [address] [place] [address] [place] Platelet mean volume (Bld) [Entitic vol] 9.5 fL Normal 9.0-12.7 [place] Comment on above: Order Comment: Speci men Type: BLOOD SPECIMEN Ordering Facility: [facility] Address: [address] [place] [address] Performed By: #### 5 7021-8 #### [facility] CLIA [id number] [address] [place] [address] [place] Platelets (Bld) [#/Vol] 306 10*3/uL Normal 150-400 [place] Comment on above: Order Comment: Speci men Type: BLOOD SPECIMEN Ordering Facility: [facility] Address: [address] [place] [address] Performed By: #### 5 7021-8 #### [facility] CLIA [id number] [address] [place] [address] [place] RBC (Bld) [#/Vol] 4.11 10*6/uL Normal 3.90-5.20 [facility] Comment on above: Order Comment: Speci men Type: BLOOD SPECIMEN Ordering Facility: [facility] Address: [address] [place] [address] Performed By: #### 5 7021-8 #### [facility] CLIA [id number] [address] [place] [address] [place] WBC (Bld) [#/Vol] 8.98 10*3/uL Normal 3.70-11.00 [facility] Comment on above: Order Comment: Speci men Type: BLOOD SPECIMEN Ordering Facility: [facility] Address: [address] [place] [address] Performed By: #### 5 7021-8 #### [facility] CLIA [id number] [address] [place] [address] [place] HBV surface Ag Ser Qlon 02-2 HBV surface Ag Ql (S) Negative Normal Negative [facility] Comment on above: Order Comment: Speci men Type: BLOOD SPECIMEN Ordering Facility: [facility] Address: [address] [place] [address] Performed By: #### M AT21 #### [facility] CLIA [id number] [address] [place] [address] HCV Ab Ser Qlon 05-11-2024 HCV Ab Ql (S) Negative Normal Negative [place] Comment on above: Order Comment: Speci men Type: BLOOD SPECIMEN Ordering Facility: [facility] Address: [address] [place] [address] Result Comment: The result suggests no evidence of active infection with Hepatitis C virus. Should recent infection be suspected, repeat testing may be considered 4-6 weeks after this draw. Performed By: #### 1 6128-1 #### [facility] CLIA [id number] [address] [place] [address] [place] [facility] HIV 1+2 Ab IA Qlon HIV 1 and 2 Ab IA.rapid Nom (S/P/Bld) Normal [place] Comment on above: Order Comment: Speci men Type: BLOOD SPECIMEN Ordering Facility: [facility] Address: [address] [place] [address] Result Comment: Test not indicated. Performed By: #### M AT21 #### [facility] CLIA [id number] [address] [place] [address] HIV 1+2 Ab+HIV1 p24 Ag IA Ql Non-Reactive Normal Nonreactive [place] Comment on above: Order Comment: Speci men Type: BLOOD SPECIMEN Ordering Facility: [facility] Address: [address] [place] [address] Performed By: #### M AT21 #### [facility] CLIA [id number] [address] [place] [address] HIV immunoassay testing algorithm interpretation (S/P/Bld) [Interp] Normal [place] Comment on above: Order Comment: Speci men Type: BLOOD SPECIMEN Ordering Facility: [facility] Address: [address] [place] [address] Result Comment: No e vidence of HIV-1 or HIV-2 infection. Should recent infection be suspected, repeat testing may be considered 2-3 weeks after this draw. [place] Rev. Code 3701.243(E): This information has been disclosed to you from confidential records protected from disclosure by state law. ???You shall make no further disclosure of this information without the specific, written, and informed release of the individual to whom it pertains or as otherwise permitted by state law. A general authorization for the release of medical or other information is not sufficient for the purpose of the release of HIV test results or diagnoses. Performed By: #### M AT21 #### [facility] CLIA [id number] [address] [facility] [place] [address] HbA1c (Bld)on 05-11-2024 Average glucose Estimated from glycated hemoglobin (Bld) [Mass/Vol] 82 mg/dL Normal [place] Comment on above: Order Comment: Speci men Type: BLOOD SPECIMEN Ordering Facility: [facility] Address: [address] [place] [address] Result Comment: eAG: (Estimated average glucose) is a calculated value from HgbA1c and is ocean import representative of the average blood glucose level in the last 2-3 month period. Performed By: #### 1 6128-1 #### [facility] CLIA [id number] [address] [place] [address] [place] HbA1c (Bld) [Mass fraction] 4.5 % Normal 4.3-5.6 [place] Comment on above: Order Comment: Speci men Type: BLOOD SPECIMEN Ordering Facility: [facility] Address: [address] [place] [address] Result Comment: Amer ican Diabetes Association guidelines indicate that patients with HgbA1c in the range 5.7-6.4% are at increased risk for development of diabetes, and intervention by lifestyle modification may be beneficial. HgbA1c greater or equal to 6.5% is considered diagnostic of diabetes. Performed By: #### 1 6128-1 #### [facility] CLIA [id number] [address] [place] [address] [place] [id number] PLUSon 02-27-2025 Cell-free DNA./Cell-free DNA.total Dosage of chromosome-specific cfDNA (cfDNA) [Molar fraction] 22% Normal [place] Comment on above: Order Comment: Speci men Type: BLOOD SPECIMEN Ordering Facility: [facility] Address: [address] [place] [address] Performed By: #### M AT21 #### [facility] CLIA [id number] [address] [place] [address] Chr 13+18+21+X+Y aneuploidy Dosage of chromosome-specific cfDNA Ql (cfDNA) Negative Normal [place] Comment on above: Order Comment: Speci brad Type: BLOOD SPECIMEN Ordering Facility: [facility] Address: [address] [place] [address] Performed By: #### M AT21 #### [facility] CLIA [id number] [address] [place] [address] Chr 21 trisomy Dosage of chromosome-specific cfDNA Ql (cfDNA) Negative Normal [place] Comment on above: Order Comment: Speci men Type: BLOOD SPECIMEN Ordering Facility: [facility] Address: [address] [place] [address] Performed By: #### M AT21 #### [facility] CLIA [id number] [address] [place] [address] Chr X and Y aneuploidy risk Sequencing Ql (cfDNA) [Interp] Not detected Normal [place] Comment on above: Order Comment: Speci men Type: BLOOD SPECIMEN Ordering Facility: [facility] Address: [address] [place] [address] Result Comment: Not Detected Not Detected Performed By: #### M AT21 #### [facility] CLIA [id number] [address] [place] [address] Citation Raghu (Reference lab test) Comment Normal [place] Comment on above: Order Comment: [place]le [place] Type: BLOOD SPECIMEN Ordering Facility: [facility] Address: [address] [place] [address] Result Comment: 1. P yusuf BRINK, et al. Ana M Med. 2012;14(3):296-305. 2. Beena MANUEL et al. Prenat Diag. 2013;33(6):591-597. 3. Robin C, et al. Clin Chem. 2015 Apr;61(4):608-616. 4. Asim BRINK et al. Ana M Med. 2011;13(11):913-920. 5. ACOG/SMFM Practice Bulletin No. 226, Dec 2019. Performed By: #### M AT21 #### [facility] CLIA [id number] [address] [place] [address] Gestational age Estimated from conception date Noble Normal [place] Comment on above: Order Comment: [place] Type: BLOOD SPECIMEN Ordering Facility: [facility] Address: [address] [place] [address] Performed By: #### M AT21 #### [facility] CLIA [id number] [address] [place] [id number] GESTATIONALAGE AGE > OR = 9W Yes Normal [place] Comment on above: Order Comment: [place] Type: BLOOD SPECIMEN Ordering Facility: [facility] Address: [address] [place] [address] Performed By: #### M AT21 #### [facility] CLIA [id number] [address] [place] [id number] Laboratory comment Raghu (Report) Comment Normal [place] Comment on above: Order Comment: [place] Type: BLOOD SPECIMEN Ordering Facility: [facility] Address: [address] [place] [address] Result Comment: The MaterniT(R) 21 PLUS laboratory-developed test (LDT) analyzes circulating cell-free DNA from a maternal blood sample. This test is used for screening purposes and not diagnostic. Clinical correlation is recommended. Validation data on twin pregnancies is limited and the ability of this test to detect aneuploidy in higher multiple gestations has not yet been validated. Performed By: #### M AT21 #### [facility] CLIA [id number] [address] [place] [phone] associate embalmer/funeral director name Nom (Provider) Comment Normal [place] Comment on above: Order Comment: Speci men Type: BLOOD SPECIMEN Ordering Facility: [facility] Address: [address] [place] [address] Result Comment: This specimen showed an expected representation of chromosome 21, 18 and 13 material. Clinical correlation is suggested. Comment Josué Flor MD, PhD, Director, [facility] Performed By: #### M AT21 #### [facility] CLIA [id number] [address] [place] [address] LIMITATIONS OF THE TEST Comment Normal [facility] Comment on above: Order Comment: Speci men Type: BLOOD SPECIMEN Ordering Facility: [facility] Address: [address] [place] [address] Result Comment: Annalee spicer the results of these tests are highly reliable, discordant results, including inaccurate sex prediction, may occur due to placental, maternal, or mosaicism or neoplasm; vanishing twin; prior maternal organ transplant; or other causes. These tests are screening tests and not diagnostic; they do not replace the accuracy and precision of diagnosis with CVS or amniocentesis. A patient with a positive test result should be referred for genetic counseling and offered invasive diagnosis for confirmation of test results.[5] The results of this testing, including the benefits and limitations, should be discussed with a qualified healthcare provider. management decisions, including termination of the , should not be based on the results of these tests alone. The healthcare provider is responsible for the use of this information in the management of their patient. Sex chromosomal aneuploidies are not reportable for known multiple gestations. A negative result does not ensure an unaffected nor does it exclude the possibility of other chromosomal abnormalities or defects which are not a part of these tests. An uninformative result may be reported, the causes of which may include, but are not limited to, insufficient sequencing coverage, noise or artifacts in the region, amplification or sequencing bias, or insufficient fraction. These tests are not intended to identify pregnancies at risk for neural tube defects or ventral wall defects. Testing for whole chromosome abnormalities (including sex chromosomes) and for subchromosomal abnormalities could lead to the potential discovery of both and maternal genomic abnormalities that could have major, minor, or no, clinical significance. Evaluating the significance of a positive or a non-reportable result may involve both invasive testing and additional studies on the mother. Such investigations may lead to a diagnosis of maternal chromosomal or subchromosomal abnormalities, which on occasion may be associated with benign or malignant maternal neoplasms. These tests may not accurately identify triploidy, balanced rearrangements, or the precise location of subchromosomal duplications or deletions; these may be detected by diagnosis with CVS or amniocentesis. The ability to report results may be impacted by maternal BMI, maternal weight, maternal systemic lupus erythematosus (SLE) and/or by certain pharmaceutical agents such as low molecular weight heparin (for example: Lovenox(R), Xaparin(R), Clexane(R) and Fragmin(R)). Performed By: #### M AT21 #### [facility] CLIA [id number] [address] [place] [address] Monosomy X risk Dosage of chromosome-specific cfDNA Ql (Plasma cell-free+WBC DNA) [Interp] Not detected Normal [place] Comment on above: Order Comment: [place] Type: BLOOD SPECIMEN Ordering Facility: [facility] Address: [address] [place] [address] Performed By: #### M AT21 #### [facility] CLIA [id number] [address] [place] [address] NEGATIVE PREDICTIVE VALUE Note Normal [place] Comment on above: Order Comment: [place] Type: BLOOD SPECIMEN Ordering Facility: [facility] Address: [address] [place] [address] Result Comment: The Negative Predictive Value (NPV) for trisomy 21, 18, and 13 is greater than 99%. The NPV for SCA and ESS cannot be calculated as SCA and ESS are only reported when an abnormality is detected. Performed By: #### M AT21 #### [facility] CLIA [id number] [address] [place] [address] PERFORMANCE CHARACTERISTICS Note Normal [place] Comment on above: Order Comment: [place] Type: BLOOD SPECIMEN Ordering Facility: [facility] Address: [address] [place] [address] Result Comment: ! Sex ! Accuracy: 99.4% ! ! ! ! Region (associated syndrome) ! Est. Sens# ! Est. Spec ! ! ! ! Trisomy 21 (Down Syndrome) ! 99.1% ! 99.9% ! ! ! ! Trisomy 18 (Baig Syndrome) ! >99.9% ! 99.6% ! ! ! ! Trisomy 13 (Patau Syndrome) ! 91.7% ! 99.7% ! ! ! ! Sex Chromosome Aneuploidies## ! 96.2% ! 99.7% ! ! ! * As reported in [facility] database nstd37 [https://www.ncbi.nlm.nih.gov/dbvar/studies/nstd37/ ] # Estimated Sensitivity. Sensitivity estimated across the observed size distribution of each syndrome [per [employer] database nstd37] and across the range of fractions observed in routine clinical NIPT. Actual sensitivity can also be influenced by other factors such as the size of the event, total sequence counts, amplification bias, or sequence bias. ## Noble gestation only. Performed By: #### M AT21 #### [facility] CLIA [id number] [address] [place] [address] POSITIVE PREDICTIVE VALUE N/A Normal [place] Comment on above: Order Comment: [place] Type: BLOOD SPECIMEN Ordering Facility: [facility] Address: [address] [place] [address] Performed By: #### M AT21 #### [facility] CLIA [id number] [address] [place] [address] Reference Lab Test Method Comment Normal [place] Comment on above: Order Comment: [place] Type: BLOOD SPECIMEN Ordering Facility: [facility] Address: [address] [place] [address] Result Comment: See Notes Circulating cell-free DNA was purified from the plasma component of maternal blood. The extracted DNA was then converted into a genomic DNA library for aneuploidy analysis of chromosomes 21, 18, and 13 via next generation sequencing.[1] Optional findings based on the test order include sex chromosome aneuploidy (SCA)[2], and enhanced sequencing series (ESS)[3], which will only be reported on as an additional finding when an abnormality is detected. SCA testing includes information on X and Y representation, while ESS testing includes deletions in selected regions (22q, 15q, 11q, 8q, 5p, 4p, 1p) and trisomy of chromosomes 16 and 22. Performed By: #### M AT21 #### [facility] CLIA [id number] [address] [place] [address] Service comment (Unsp spec) [Interp] Comment Normal [place] Comment on above: Order Comment: [place] Type: BLOOD SPECIMEN Ordering Facility: [facility] Address: [address] [place] [address] Result Comment: See Notes [email or web address] is a subsidiary of [employer], using the brand [employer]. This test was developed and its performance characteristics determined by [employer]. It has not been cleared or approved by the Food and Drug Administration. This laboratory is certified under the Clinical Laboratory Improvement Amendments (CLIA) as qualified to perform high complexity clinical laboratory testing and accredited by the [employer] [employer] (CAP). If there is future clinical need for adding MaterniT GENOME testing, this specimen will be available until term. [facility] samples will not be retained beyond 60 days. [facility] patients will have to send a new sample for re-sequencing ([facility] Test Code: [id number]). Performed By: #### M AT21 #### [facility] CLIA [id number] [address] [place] [address] Sex Dosage of chromosome-specific cfDNA Nom (cfDNA) Comment Normal [place] Comment on above: Order Comment: Speci men Type: BLOOD SPECIMEN Ordering Facility: [facility] Address: [address] [place] [address] Result Comment: Cons istent with Male Performed By: #### M AT21 #### [facility] CLIA [id number] [address] [place] [address] Test performance information Raghu (Unsp spec) Comment Normal [place] Comment on above: Order Comment: Speci men Type: BLOOD SPECIMEN Ordering Facility: [facility] Address: [address] [place] [address] Result Comment: The performance characteristics of the MaterniT(R) 21 PLUS laboratory-developed test (LDT) have been determined in a clinical validation study with women at increased risk for chromosomal aneuploidy.[1-4] Performed By: #### M AT21 #### [facility] CLIA [id number] [address] [place] [address] Trisomy 13 risk Dosage of chromosome-specific cfDNA Ql (cfDNA) [Interp] Negative Normal [place] Comment on above: Order Comment: Speci men Type: BLOOD SPECIMEN Ordering Facility: [facility] Address: [address] [place] [address] Performed By: #### M AT21 #### [facility] CLIA [id number] [address] [place] [address] Trisomy 18 risk Dosage of chromosome-specific cfDNA Ql (Plasma cell-free+WBC DNA) [Interp] Negative Normal [place] Comment on above: Order Comment: [place] Type: BLOOD SPECIMEN Ordering Facility: [facility] Address: [address] [place] [address] Performed By: #### M AT21 #### [facility] CLIA [id number] [address] [place] [address] RUBELLA IGG ANTIBODYon 05-11 RUBELLA IGG AB, QUAL Positive Normal Positive [facility] Comment on above: Order Comment: Carlyle [facility] Type: BLOOD SPECIMEN Ordering Facility: [facility] Address: [address] [place] [address] Result Comment: The result suggests recent or past exposure to Rubella virus or history of Rubella vaccination. Positive result may also be seen due to presence of passively-transferred antibodies. Please correlate with patient's history. Performed By: #### R UBIGG #### [facility] CLIA [id number] [address] [place] [address] [place] Reagin and Treponema pallidu m IgG and IgM [Interp]on 05-11-2024 T. pallidum IgG+IgM IA Ql (S) Non-Reactive Normal Nonreactive [place] Comment on above: Order Comment: Carlyle [facility] Type: BLOOD SPECIMEN Ordering Facility: [facility] Address: [address] [place] [address] Performed By: #### M AT21 #### [facility] CLIA [id number] [address] [place] [address] Reagin+T pallidum IgG+IgM Se rPl-Impon 05-11-2024 Reagin and Treponema pallidum IgG and IgM [Interp] Cannot exclude recent Treponemal infection if specimen collected within 7-10 days after appearance of suspect lesions or 2-3 weeks after an exposure. Clinical correlation is required. Normal [place] Comment on above: Order Comment: Speci men Type: BLOOD SPECIMEN Ordering Facility: [facility] Address: [address] [place] [address] Performed By: #### M AT21 #### [facility] CLIA [id number] [address] [facility] [place] [address] TYPE + SCREEN PRENATALon ABO O Normal [place] Comment on above: Order Comment: Speci men Type: BLOOD SPECIMEN Ordering Facility: [facility] Address: [address] [place] [address] Performed By: #### T SPN #### [facility] CLIA [id number] [address] [place] [address] [place] Rh Nom (Bld) Positive Normal [place] Comment on above: Order Comment: Speci men Type: BLOOD SPECIMEN Ordering Facility: [facility] Address: [address] [place] [address] Performed By: #### T SPN #### [facility] CLIA [id number] [address] [place] [address] [place] TYPE AND SCREEN EXPIRATION 05/14/2024 23:59 Normal [place] Comment on above: Order Comment: Speci men Type: BLOOD SPECIMEN Ordering Facility: [facility] Address: [address] [place] [address] Performed By: #### T SPN #### [facility] CLIA [id number] [address] [place] [address] [place] Urine Cultureon 05-10-2024 URC Below infection leve l. Mixed Gram Positive Organisms [place]xton Count 1000-10,000 MIXC Mixed contaminants. Submit a new specimen if indicated. Normal [facility] Comment on above: Performed By: #### M 100.2200 ####[facility] [address] [place], [address] [id number] 05-08-2024 ABO and Rh group Nom (Bld) Blood group O Rh(D) positive Normal [facility] Comment on above: Performed By: #### L 500.2500, L100.0100, L700.8000, B882-1 #### [facility] [address] [place], [address] Absolute lymphocyte countOrd ered By: Joseph Zaragoza on 05-07-2024 Lymphocytes Auto (Unsp spec) [#/Vol] 3.20 10*3/uL 0.83-4.51 [facility] Absolute neutrophil countOrd ered By: Joseph Zaragoza on 05-07-2024 Neutrophils (Bld) [#/Vol] 5.9 10*3/uL 2.0-7.7 [facility] Automated blood erythrocyte countOrdered By: Joseph Zaragoza on 05-07-2024 RBC (Bld) [#/Vol] 4.02 10*6/uL Low 4.2-5.4 [facility] Comment on above: Performed By: #### L 500.2500, L100.0100, L700.8000, B882-1 #### [facility] [address] [place], [address] Automated blood hematocrit ( percentage)Ordered By: Joseph Zaragoza on 05-07-2024 Hematocrit (Bld) [Volume fraction] 34.3 % Low 37-47 [facility] Comment on above: Performed By: #### L 500.2500, L100.0100, L700.8000, B882-1 #### [facility] [address] [place], [address] Automated lymphocyte count a s percentage of total leukocytesOrdered By: Joseph Zaragoza on 05-07-2024 Lymphocytes/100 WBC Auto (Unsp spec) 31.1 % 19-41 [facility] Basic Metabolic Profile (BMP )on 05-07-2024 BUN/CRE 16.1 RATIO Normal 10-20 [facility] Comment on above: Performed By: #### L 500.2500, L100.0100, L700.8000, B882-1 #### [facility] [address] [place], [address] CA,Total 8.9 mg/dL Normal 8.5-10.1 [facility] Comment on above: Performed By: #### L 500.2500, L100.0100, L700.8000, B882-1 #### [facility] [address] [place], [address] Chloride [Moles/Vol] 106 mmol/L Normal 98-107 [facility] Comment on above: Performed By: #### L 500.2500, L100.0100, L700.8000, B882-1 #### [facility] [address] [place], [address] CO2 [Moles/Vol] 25.0 mmol/L Normal 21.0-32.0 [facility] Comment on above: Performed By: #### L 500.2500, L100.0100, L700.8000, B882-1 #### [facility] [address] [place], [address] Creatinine [Mass/Vol] 0.43 mg/dL Low 0.55-1.02 [facility] Comment on above: Result Comment: The validity of the calculated GFR GFRAA in patients over 70 years has not been determined. Clinical correlation is essential. Performed By: #### L 500.2500, L100.0100, L700.8000, B882-1 #### [facility] [address] [place], [address] ECRCL 212.28 ml/min Normal [facility] Comment on above: Performed By: #### L 500.2500, L100.0100, L700.8000, B882-1 #### [facility] [address] [place], [address] EST GFR - AA 239 mL/min Normal >60 [facility] Comment on above: Result Comment: Afri can Macedonian GFR Calc Performed By: #### L 500.2500, L100.0100, L700.8000, B882-1 #### [facility] [address] [place], [address] GAP 6 Normal 5-15 [facility] Comment on above: Performed By: #### L 500.2500, L100.0100, L700.8000, B882-1 #### [facility] [address] [place], [address] GFR/1.73 sq M.predicted among non-blacks MDRD (S/P/Bld) [Vol rate/Area] 197 mL/min/{1.73_m2} Normal >60 [facility] Comment on above: Result Comment: Non- GFR Calc Performed By: #### L 500.2500, L100.0100, L700.8000, B882-1 #### [facility] [address] [place], [address] Glucose [Mass/Vol] 92 mg/dL Normal 74-106 [facility] Comment on above: Performed By: #### L 500.2500, L100.0100, L700.8000, B882-1 #### [facility] [address] [place], [address] Potassium [Moles/Vol] 3.3 mmol/L Low 3.5-5.1 [facility] Comment on above: Performed By: #### L 500.2500, L100.0100, L700.8000, B882-1 #### [facility] [address] [place], [address] Sodium [Moles/Vol] 137 mmol/L Normal 136-145 [facility] Comment on above: Performed By: #### L 500.2500, L100.0100, L700.8000, B882-1 #### [facility] [address] [place], [address] Urea nitrogen [Mass/Vol] 7 mg/dL Normal 7-18 [facility] Comment on above: Performed By: #### L 500.2500, L100.0100, L700.8000, B882-1 #### [facility] [address] [place], [address] Basophil percentageOrdered B y: Joseph Zaragoza on 05-07-2024 Basophils/100 WBC (Bld) 0.4 % Normal 0-1 [facility] Comment on above: Performed By: #### L 500.2500, L100.0100, L700.8000, B882-1 #### [facility] [address] [place], [address] Bilirubin Test strip Ql (U)O rdered By: Joseph Zaragoza on 05-07-2024 Bilirubin Ql (U) Negative Negative [facility] Blood urea nitrogen (BUN)/cr eatinine ratioOrdered By: Joseph Zaragoza on 05-07-2024 Urea nitrogen/Creatinine [Mass ratio] 16.1 mg/mg 10-20 [facility] CBC W/Diff, Automatedon 04-16 Absolute Lymph 3.20 X10 3/uL Normal 0.83-4.51 [facility] Comment on above: Performed By: #### L 500.2500, L100.0100, L700.8000, B882-1 #### [facility] [address] [place], [address] Absolute Neut 5.9 X10 3/uL Normal 2.0-7.7 [facility] Comment on above: Performed By: #### L 500.2500, L100.0100, L700.8000, B882-1 #### [facility] [address] [place], [address] IG% 0.400 Normal 0.0-0.9 [facility] Comment on above: Result Comment: IG% - Immature Granulocytes (promyelocytes, myelocytes and metamyelocytes) > 1% indicates that a LEFT SHIFT is Present. Performed By: #### L 500.2500, L100.0100, L700.8000, B882-1 #### [facility] [address] [place], [address] Lymphocytes/100 WBC (Bld) 31.1 % Normal 19-41 [facility] Comment on above: Performed By: #### L 500.2500, L100.0100, L700.8000, B882-1 #### [facility] [address] [place], [address] Nucleated RBC (Bld) [#/Vol] 0 10*3/uL Normal 0-5 [facility] Comment on above: Performed By: #### L 500.2500, L100.0100, L700.8000, B882-1 #### [facility] [address] [place], [address] RDW SD 39.1 fl Normal 35.1-43.9 [facility] Comment on above: Performed By: #### L 500.2500, L100.0100, L700.8000, B882-1 #### [facility] [address] [place], [address] Carbon dioxide measurementOr dered By: Joseph Zaragoza on 05-07-2024 CO2 [Moles/Vol] 25.0 mmol/L 21.0-32.0 [facility] Chloride measurementOrdered By: Joseph Zaragoza on 05-07-2024 Chloride [Moles/Vol] 106 mmol/L 98-107 [facility] Emergency Department Summary on 05-07-2024 Emergency Department Summary [facility] Medical Records Department [address] [place] [address] Emergency Department Summary 05/07/24 MR#: [id number] Acct: [id number] Name: FATOUMATA CLARK Rep #: [id number] : 2005 18 From: Joseph Zaragoza DO PCP: Dr. Oseas Alvarez MD Status:REG ER Location: ED HPI HPI - Female History of Present Illness Chief Complaint: Vag Bld, Preg PFSH PFSH Home Medications ???Medication ???Instructions ???Recorded ???Last Taken ???Type cephalexin 500 mg capsule 500 mg PO TID #21 caps 05/07/24 Un known Rx Allergy/AdvReac Type Severity Reaction Status Date / Time No Known Allergies Allergy Verified 05/07/24 22:09 Surgical History History of appendectomy Social History (Updated 05/07/24 @ 22:24 by Blanche Mota) household members: significant other housing: house Smoking Status: Current every day smoker tobacco type: e-cigarettes EXAM Physical Exam Const Vital Signs: 05/07/24 22:09 Temperature 97.9 F Temperature Source Temporal Pulse Rate 101 H Respiratory Rate 15 Blood Pressure 124/74 H Blood Pressure Mean 90 Pulse Ox 100 Oxygen Delivery Method Room Air MDM MDM MDM Narrative Medical decision making narrative: HISTORY OF PRESENT ILLNESS: 18-year-old female here with concern for lower abdominal cramping, red-brown bleeding. Notes been intermittent for last 2 days. No she is approximate 15 weeks . Notes she is a G 1 P 0. Notes no pain now but notes intermittent spotting. REVIEW OF SYSTEMS: Pertinent positives: Abdominal cramping, vaginal bleeding Pertinent negatives: Vomiting, fever, urinary complaint PHYSICAL EXAM: Nursing triage notes reviewed, Vital signs reviewed Constitutional: please see mdm HENT: MMM Eyes: Pupils equal round and reactive to light, Extraocular muscles intact Neck: No stridor, no JVD, full neck ROM Lungs: Clear to auscultation, No wheezing or rales. No increased work of breathing, no conversational dyspnea, no accessory muscle use, no nasal flaring. No respiratory distress noted Heart: Regular rate and rhythm, No murmurs, No rubs and No gallops, 2+ distal pulses (radial, femoral, posterior tibial) in all extremities Abdomen: Soft, gravid uterus, there is no tenderness, rigidity, rebound or guarding, no obvious peritoneal signs, no palpable pulsatile abdominal masses, no auscultated abdominal bruit : No CVAT Extremities: No edema Neuro: No new focal neurological deficits, cranial nerves II through XII intact, 5/5 strength in all present extremities. Intact sensation to light touch in all present extremities, 2+ reflexes bilateral patella tendons. Skin: No rash or lesions noted MEDICAL DECISION MAKING: Chief Complaint: Abdominal cramping, vaginal bleeding External records reviewed: Reviewed patient's prior imaging studies. No recent ultrasounds noted Factors affecting care: none Social determinants of health: none History obtained from others: none Consults: none [facility] Narrative: Patient was initially hemodynamically stable, afebrile and nontoxic-appearing. Exam with gravid uterus otherwise benign abdomen. I considered the following differential diagnosis: Miscarriage, placental abruption, I obtained labs including blood type, CBC, BMP, urinalysis and pelvic ultrasound. Pelvic police crime scene technician need to be called in. ALL IMAGES (IF OBTAINED) HAVE BEEN PERSONALLY REVIEWED AND INTERPRETED BY MYSELF. CBC with no leukocytosis, noted mild anemia, no thrombocytopenia BMP with mild hypokalemia otherwise no significant electrolyte abnormalities, no sign of endorgan hypoperfusion or metabolic acidosis with a normal anion gap and bicarb Urinalysis with signs of inflammation and asymptomatic bacteria. Will send for culture and write Keflex. hCG Quant greater than 37,000 consistent with second trimester . Awaiting transvaginal ultrasound The patient and/or family, caregivers express understanding. The patient and/or family, caregivers agrees with the plan. Shared decision making: I will have a discussion with the patient and or visitors regarding risk/benefits of further testing or admission. They will be made aware of of the risk/benefits inherent in this decision they will be given the opportunity to voice understanding. Total critical care time today provided was at least 0 minutes. This excludes separately billable procedures. Critical care time (if documented) is secondary to the patient having high probability of clinically significant/life threatening deterioration in the patient's condition which required my urgent intervention. Impression: 1. Second trimester 2. Abdominal pain 3. Vaginal bleed Dispo: Pending ultrasound a (more content not included)... Normal [facility] Eosinophil percentageOrdered By: Joseph Zaragoza on 05-07-2024 Eosinophils/100 WBC (Bld) 2.5 % Normal 0-5 [facility] Comment on above: Performed By: #### L 500.2500, L100.0100, L700.8000, B882-1 #### [facility] [address] [place], [address] Erythrocyte distribution wid th ratioOrdered By: Joseph Zaragoza on 05-07-2024 Erythrocyte distribution width (RBC) [Ratio] 12.7 % Normal 11.6-14.6 [facility] Comment on above: Performed By: #### L 500.2500, L100.0100, L700.8000, B882-1 #### [facility] [address] [place], [place], [id number] Erythrocyte distribution wid th standard deviationOrdered By: Joseph Zaragoza on 05-07-2024 Erythrocyte distribution width (RBC) [Ratio] 39.1 fl 35.1-43.9 [facility] Glomerular filtration rate ( GFR) estimationOrdered By: Joseph Zaragoza on 05-07-2024 GFR/1.73 sq M.predicted among non-blacks MDRD (S/P/Bld) [Vol rate/Area] 197 mL/min/{1.73_m2} >60 [facility] Comment on above: Non- GFR Calc Glucose measurementOrdered B y: Joseph Zaragoza on 05-07-2024 Glucose [Mass/Vol] 92 mg/dL 74-106 [facility] Hemoglobin measurementOrdere d By: Joseph Zaragoza on 05-07-2024 Hemoglobin (Bld) [Mass/Vol] 11.9 g/dL Low 12.0-15.0 [facility] Comment on above: Performed By: #### L 500.2500, L100.0100, L700.8000, B882-1 #### [facility] [address] [place], [place], [id number] Immature granulocytes/100 WB C Auto (Bld)Ordered By: Joseph Zaragoza on 05-07-2024 Immature granulocytes/100 WBC (Bld) 0.400 % 0.0-0.9 [facility] Comment on above: IG% - Immature Granu locytes (promyelocytes, myelocytes and metamyelocytes) > 1% indicates that a LEFT SHIFT is Present. Ketones Test strip Ql (U)Ord ered By: Joseph Zaragoza on 05-07-2024 Ketones Ql (U) 50 mg/dl High Negative [facility] MCV (mean corpuscular volume ) determinationOrdered By: Joseph Zaragoza on 05-07-2024 MCV (RBC) [Entitic vol] 85.3 fL Normal 81-99 [facility] Comment on above: Performed By: #### L 500.2500, L100.0100, L700.8000, B882-1 #### [facility] [address] [place], [place], [address] Mean corpuscular hemoglobin (MCH) determinationOrdered By: Joseph Zaragoza on 05-07-2024 MCH (RBC) [Entitic mass] 29.6 pg Normal 27.0-32.0 [facility] Comment on above: Performed By: #### L 500.2500, L100.0100, L700.8000, B882-1 #### [facility] [address] [place], [place], [address] Mean corpuscular hemoglobin concentration (MCHC) determinationOrdered By: Joseph Zaragoza on 05-07-2024 MCHC (RBC) [Mass/Vol] 34.7 g/dL Normal 32-36 [facility] Comment on above: Performed By: #### L 500.2500, L100.0100, L700.8000, B882-1 #### [facility] [address] [place], [place], [address] Mean platelet volume determi nationOrdered By: Joseph Zaragoza on 05-07-2024 Platelet mean volume (Bld) [Entitic vol] 9.1 fL Normal 6.2-12.0 [facility] Comment on above: Performed By: #### L 500.2500, L100.0100, L700.8000, B882-1 #### [facility] [address] [place], [place], [id number] Microscopic analysis of urin e for red blood cells (RBC)Ordered By: Joseph Zaragoza on 05-07-2024 Microscopic analysis of urine for red blood cells (RBC) 0-5 SEEN /hpf 0-5 [facility] Monocyte percentageOrdered B y: Joseph Zaragoza on 05-07-2024 Monocytes/100 WBC (Bld) 8.2 % Normal 0-10 [facility] Comment on above: Performed By: #### L 500.2500, L100.0100, L700.8000, B882-1 #### [facility] [address] [place], [place], [phone] Mucus LM Ql (Urine sed)Order ed By: Joseph Zaragoza on 05-07-2024 Mucus Ql (Urine sed) 1+ /hpf [facility] Neutrophil percentageOrdered By: Joseph Zaragoza on 05-07-2024 Neutrophils/100 WBC (Bld) 57.4 % Normal 47-70 [facility] Comment on above: Performed By: #### L 500.2500, L100.0100, L700.8000, B882-1 #### [facility] [address] [place], [place], [id number] Nitrite Test strip Ql (U)Ord ered By: Joseph Zaragoza on 05-07-2024 Nitrite Ql (U) Negative Negative [facility] Nucleated red blood cell per centageOrdered By: Joseph Zaragoza on 05-07-2024 Nucleated RBC/100 WBC (Bld) [Ratio] 0 % 0-5 [facility] OB Limited (No Biometrics)on 05-07-2024 OB Limited (No Biometrics) [facility] Imaging Services [address] [place], [place] [id number] OB Limited (No Biometrics) MR#: [id number] Acct: [id number] Name: ANITRAFATOUMATA NIKKO Rep #: [id number] : 2005 F 18 From: Daryn Darden MD PCP: Dr. Oseas Alvarez MD Status: [facility] ER Study: OB Limited (No Biometrics) Date of Exam: 05/07 Exam# [id number] Ordering Dr: Joseph Zaragoza DO PROCEDURE: OB LIMITED (NO BIOMETRICS) REASON FOR EXAM: Lower pelvic pain and cramping, vaginal bleeding dark brown x2 days COMPARISON: None. FINDINGS: Comments: Single live intrauterine with heart tones 152 beats per minute. Presentation is cephalic. Anterior placenta without evidence of previa. Small hypoechoic area visualized along the anterior aspect of the uterine wall may represent possible area of placenta abruption versus dilated vessels. Cervix appears closed. Cervical length 3.5 cm. Amniotic fluid subjectively appears within limits. Maximum pocket 4 cm. Adnexa appear unremarkable. No free fluid. ESTIMATED GESTATIONAL AGE: By LMP: 15 weeks and 4 days ESTIMATED DATE OF DELIVERY: By LMP: 10/25/2024 US/OB Limited (No Biometrics) IMPRESSION: Single live intrauterine with heart tones 152 beats per minute. . Anterior placenta without evidence of previa. Small hypoechoic area visualized along the anterior aspect of the uterine wall may represent possible area of placenta abruption versus dilated vessels. Cervix appears closed. Cervical length 3.5 cm. Clinically correlate may follow-up with repeat Ob ultrasound. Amniotic fluid subjectively appears within limits. Maximum pocket 4 cm. Reading Location: [facility] CC: Dr. Oseas Alvarez MD; Dr. Joseph Zaragoza DO [employer]: Signed Normal [facility] Platelet countOrdered By: Bess Zaragoza on 05-07-2024 Platelets (Bld) [#/Vol] 317 10*3/uL Normal 150-450 [facility] Comment on above: Performed By: #### L 500.2500, L100.0100, L700.8000, B882-1 #### [facility] [address] [place], [place], [id number] Potassium measurementOrdered By: Joseph Zaragoza on 05-07-2024 Potassium [Moles/Vol] 3.3 mmol/L Low 3.5-5.1 [facility] Protein Test strip Ql (U)Ord ered By: Joseph Zaragoza on 05-07-2024 Protein Ql (U) 30 mg/dl High Negative [facility] Serum anion gap measurementO rdered By: Joseph Zaragoza on 05-07-2024 Anion gap [Moles/Vol] 6 mmol/L 5-15 [facility] Serum human chorionic gonado tropin detection for pregnancyOrdered By: Joseph Zaragoza on 05-07-2024 HCG ( test) Ql [address] mIU/mL High <4 [facility] Comment on above: hCG levels with Gest ational AgeGestational Age hCG mIU/mL (IU/L)0.2 - 1 week 5 - 501-2 weeks 50 - 5002-3 weeks 100 - 88714-6 weeks 500 - 948680-8 weeks 1000 - 175075-5 weeks 65228 - 100,0006-8 weeks 06153 - 200,0002-3 months 45455 - 100,000 Serum or plasma calcium yamilka urement (mass/volume)Ordered By: Joseph Zaragoza on 05-07-2024 Calcium [Mass/Vol] 8.9 mg/dL 8.5-10.1 [facility] Serum or plasma creatinine m easurement (mass/volume)Ordered By: Joseph Zaragoza on 05-07-2024 Creatinine [Mass/Vol] 0.43 mg/dL Low 0.55-1.02 [facility] Comment on above: The validity of the calculated GFR & GFRAA in patients over 70 years has not been determined. Clinical correlation is essential. Serum or plasma urea nitroge n measurement (mass/volume)Ordered By: Joseph Zaragoza on 05-07-2024 Urea nitrogen [Mass/Vol] 7 mg/dL 7-18 [facility] Sodium levelOrdered By: Winston Zaragoza on 05-07-2024 Sodium [Moles/Vol] 137 mmol/L 136-145 [facility] Squamous epithelial cells de tection in urine sediment by light microscopyOrdered By: Joseph Zaragoza on 05-07-2024 Epithelial cells.squamous LM Ql (Urine sed) 10-25 SEEN /hpf 5-10 [facility] Urinalysis, Completeon 05-07 Mucus Ql (Urine sed) 1+ /hpf Normal [facility] Comment on above: Order Comment: CLEAN CATCH Performed By: #### L 400.0001 #### [facility] [address] [place], [address] BACTERIA 2+ /hpf Normal None Seen [facility] Comment on above: Order Comment: CLEAN CATCH Performed By: #### L 400.0001 #### [facility] [address] [place], [address] EPI,SQUAMOUS 10-25 SEEN Normal 5-10 [facility] Comment on above: Order Comment: CLEAN CATCH Performed By: #### L 400.0001 #### [facility] [address] [place], [address] RBC 0-5 SEEN Normal 0-5 [facility] Comment on above: Order Comment: CLEAN CATCH Performed By: #### L 400.0001 #### [facility] [address] [place], [address] WBC 25-50 SEEN Normal 0-5 [facility] Comment on above: Order Comment: CLEAN CATCH Performed By: #### L 400.0001 #### [facility] [address] [place], [address] Urine clarityOrdered By: Og Zaragoza on 05-07-2024 Clarity (U) Cloudy Clear [facility] Urine color determinationOrd ered By: Joseph Zaragoza on 05-07-2024 Color (U) Yellow Yellow [facility] Urine cultureOrdered By: Og Zaragoza on 05-07-2024 Bacteria identified Cx Nom (U) Positive Abnormal [facility] Urine glucose detectionOrder ed By: Joseph Zaragoza on 05-07-2024 Glucose Ql (U) Normal mg/dl Normal [facility] Urine leukocyte esterase det ection by dipstickOrdered By: Joseph Zaragoza on 05-07-2024 Leukocyte esterase Test strip Ql (U) 500 /ul High Negative [facility] Urine pHOrdered By: Joseph higgins on 05-07-2024 pH (U) 6.0 [pH] 5.0 - 8.0 [facility] Urine sediment bacteria coun t by microscopy (number/high power field)Ordered By: Joseph Zaragoza on 05-07-2024 Bacteria LM.HPF (Urine sed) [#/Area] 2 /[HPF] None Seen [facility] Urine specific gravity measu rementOrdered By: Joseph Zaragoza on 05-07-2024 Specific gravity (U) [Rel density] 1.025 1.002-1.030 [facility] Urine urobilinogen measureme ntOrdered By: Joseph Zaragoza on 05-07-2024 Urobilinogen Ql (U) 1 mg/dl High Normal [facility] White blood cell (WBC) count Ordered By: Joseph Zaragoza on 05-07-2024 WBC (Bld) [#/Vol] 10.3 10*3/uL Normal 4.4-11.0 [facility] Comment on above: Performed By: #### L 500.2500, L100.0100, L700.8000, B882-1 #### [facility] [address] [place], [place], [id number] White blood cell countOrdere d By: Joseph Zaragoza on 05-07-2024 White blood cell count 25-50 SEEN /hpf 0-5 [facility] hCG Titer Quant., Serumon HCG QUANT. 30621 mIU/mL High 1-3 [facility] Comment on above: Result Comment: hCG levels with Gestational Age Gestational Age hCG mIU/mL (IU/L) 0.2 - 1 week 5 - 50 1-2 weeks 50 - 500 2-3 weeks 100 - 5000 3-4 weeks 500 - 18731 4-5 weeks 1000 - 39121 5-6 weeks 76675 - 100,000 6-8 weeks 88370 - 200,000 2-3 months 79132 - 100,000 Performed By: #### L 500.2500, L100.0100, L700.8000, B882-1 #### [facility] [address] [place], [place], [id number] Carlene 04-06-2024 DENISE Telephone (OBGYWM) FATOUMATA CLARK ([id number]) 3 F Date Time Provider Department 04/06/24 COREEN PURI OBGYWM During your visit today, we recorded the following information about you: Coreen Puri APRN.SPEEDY 04/06/2024 1:01 PM Signed +chlamydia, Rx sent. Coreen Puri APRN.Ratna Fierro RN 04/06/2024 1:42 PM Signed Left message to call office. Health department form filled out and faxed. SANGITA Joseph Trisha, RN 04/06/2024 4:27 PM Signed Patient notified. She is requesting expedited partner treatment. Orders pending. She is aware is medication will be different with longer course. Advised no intercourse until after he has completed rx for at least 7 days too. Please file orders. Patient requesting call back once completed. SANGITA Hensley Trisha, RN 04/06/2024 4:25 PM Signed EPT Chlamydia: Guide for Partners who Receive Doxycycline Why am I getting this prescription or medication? One of your sexual partners have been diagnosed with chlamydia. This is a sexually transmitted infection (STI) that spreads during oral, vaginal, or anal sex. You will also need to be treated for this infection to prevent any complications and transmitting the infection to others. What is chlamydia? Chlamydia is a STI. Although some patients with chlamydia experience symptoms, many do not have any signs or symptoms. Symptoms of chlamydia can include: pain or burning when you pee, fluid/discharge from the vagina, penis, or rectum that smells or looks strange, pain with sex, or pain/swelling in a testicle. You can give chlamydia to others you have sex with; so, it is important to get treatment. Untreated chlamydia can lead to problems such as infertility, infection of the testicles, and pelvic inflammatory disease. It is important to complete the entire treatment for this infection. What is the treatment for chlamydia? The prescription you are given today is for an oral antibiotic called doxycycline. Do NOT take this antibiotic if you have a severe allergy to other doxycycline or other tetracycline antibiotics. This antibiotic should be taken with a full glass of water and you should sit up for at least 30 minutes. Side effects can include nausea, vomiting, abdominal pain, and/or diarrhea. If you have an upset stomach, try to take the medication with food. If you experience any symptoms of an allergic reaction such as trouble breathing, chest tightness, closing of the throat, swelling of the lips or tongue, and itchy bumps on your skin, seek medical attention right away. What else should I do? Do not have sex for at least 7 days after you AND your sexual partner have been treated. See a healthcare provider for additional testing for other STIs, including HIV and syphilis. It is important to be tested for other STIs because this medication will only treat chlamydia. Using condoms correctly and consistently during sex is the best way to prevent other STIs. Coreen Puri APRN.SPEEDY 04/06/2024 4:56 PM Signed Rx sent Coreen Puri APRN.Abiola Shellye RN 04/06/2024 5:01 PM Signed Patient notified. Abiola Early RN The following approved medication requests have been transmitted electronically. Requested Prescriptions Signed Prescriptions Disp Refills azithromycin (ZITHROMAX) 500 mg tablet 2 tablet 0 Sig: Take 2 tablets by mouth one time only for 1 dose. Authorizing Provider: COREEN PURI doxycycline monohydrate (MONODOX) 100 mg capsule 14 capsule 0 Sig: Take 1 capsule by mouth two times a day for 7 days. Authorizing Provider: COREEN PURI Pharmacy Information Pharmacy Address [phone] [place] [address] Allergies As of Date: 04/06/2024 (No Known Allergies) Date Reviewed: 04/04/2024 Reviewed by: Tesha Millard LPN - Fully Assessed Reason for Visit: Results [95] STD [102] Primary Visit Diagnosis:Chlamydia infection [A74.9] Order(s):azithromycin (ZITHROMAX) 500 mg tabletTake 2 tablets by mouth one time only for 1 dose.Disp: 2 tabletRfl: 0 [facility]PED[facility] PARTNER TREATMENT [[id number]] Order #: [id number]: 1 doxycycline monohydrate (MONODOX) 100 mg capsuleTake 1 capsule by mouth two times a day for 7 days.Disp: 14 capsuleRfl: 0 Prescriptions as of 04/06/2024 - azithromycin (ZITHROMAX) 500 mg tablet Take 2 tablets by mouth one time only for 1 dose. - doxycycline monohydrate (MONODOX) 100 mg capsule Take 1 capsule by mouth two times a day for 7 days. - aspirin, enteric coated (ECOTRIN LOW STRENGTH) 81 mg EC tablet Take 1 tablet by mouth once daily. - vit,mamta 74/iron/folic ( VITAMIN 1+1 ORAL) Take by mouth once daily. Problem List As Of Date 04/06/2024 Noted Resolved Encounter for care in first trimester *04/04/2024 04/04/2024 Supervision of [facility] (more content not included)... Normal [place] Bacteria Ur Culton 5 Bacteria identified Cx Nom (U) ORGANISM ID: 1 10,000 -<50,000 CFU/ml Normal [facility] [place] Normal [place] Comment on above: Performed By: #### M AT21 #### [facility] CLIA [id number] [address] [place] [address] C. trachomatis+N. gonorrhoea e DNA QUINTIN+probe Ql (Unsp spec)on 04-04-2024 C. trachomatis rRNA QUINTIN+probe Ql (Unsp spec) Detected Abnormal Not detected [place] Comment on above: Order Comment: Speci men Type: BLOOD SPECIMEN Ordering Facility: [facility] Address: [address] [place] [id number] Performed By: #### M AT21 #### [facility] CLIA [id number] [address] [place] [address] N. gonorrhoeae rRNA QUINTIN+probe Ql (Unsp spec) Not detected Normal Not detected [place] Comment on above: Order Comment: Speci men Type: BLOOD SPECIMEN Ordering Facility: [facility] Address: [address] [place] [address] Performed By: #### M AT21 #### [facility] CLIA [id number] [address] [place] [address] POC CORRECTIONAL PROGRAM OFFICER ULTRASOUNDon 04-04-19 Indication Confirmation of intrauterine . Confirmation of cardiac activity. Estimation of gestational age Impression cardiac activity is visualized, CRL is appropriate for clinical dates, corresponding to URIAH 10/25/24 Recommendations Additional follow-up as clinically indicated. Method Transabdominal and transvaginal ultrasound examination. View: Adequate visualization Noble . Number of fetuses: 1 Dating LMP on: 01/19/2024 GA by LMP 10 w + 6 d URIAH by LMP: 10/25/2024 Ultrasound examination on: 04/04/2024 GA by U/S based upon: CRL GA by U/S 10 w + 4 d URIAH by U/S: 10/27/2024 Assigned: based on the LMP, selected on 04/04/2024 Assigned GA 10 w + 6 d Assigned URIAH: 10/25/2024 Biometry Standard FHR 167 bpm 46% Nicolaides CRL 37.2 mm 10w 4d 12% Hadlock Assessment Gestational sac: visualized Location: intrauterine Yolk sac: visualized Embryo: visualized CRL 37.2 mm 10w 4d 12% Hadlock Cardiac activity: present FHR 167 bpm 46% Nicolaides General Evaluation Cardiac activity present. FHR 167 bpm. movements: present Performed By: Coreen Puri CNP Read By: Coreen Puri CNP MATERNAL MEDICINE [facility] Radiology Study observation (narrative) Kim rausch [facility] T. vaginalis DNA QUINTIN+probe Ql (Unsp spec) Not detected Normal Not detected [place] Comment on above: Order Comment: Speci men Type: BLOOD SPECIMEN Ordering Facility: [facility] Address: [address] [place] [address] Performed By: #### M AT21 #### [facility] CLIA [id number] [address] [place] [address] Emergency Department Summary on 12-20-2023 Emergency Department Summary [facility] Medical Records Department [address] [place] [address] Emergency Department Summary 12/20/23 MR#: [id number] Acct: [id number] Name: FATOUMATA CLARK Rep #: [id number] : 2005 18 From: Donaldo East DO PCP: Dr. Oseas Alvarez MD Status:PRE ER Location: ED HPI History of Present Illness Chief Complaint: Upper Extremity Injury Narrative Narrative: Patient is a 18-year-old female with no known significant past medical history who presented to the emergency department chief complaint of left hand pain. Patient states that on Wednesday she does not recall what she hit her hand but notes that she feels like she hit it on something. States that she went to work today and tried to some of her job and noted that she was having significant pain with attempted pulling apart pieces. States that she not take anything for pain prior to here therefore she came here for the valuation management. [facility] Home Medications ???Medication ???Instructions ???Recorded ???Last Taken ???Type NK 12/20/23 Unknown History Allergy/AdvReac Type Severity Reaction Status Date / Time No Known Allergies Allergy Verified 12/20/23 07:57 Surgical History History of appendectomy Social History Smoking Status: Current every day smoker tobacco type: e-cigarettes ROS ROS ED ROS Narrative Constitutional: Denies any fevers, chills, headaches Neurological: Denies numbness, weakness, tingling Musculoskeletal: Complains of left hand pain as noted above Skin: Complains of bruising to the back of her hand EXAM Physical Exam Narrative Exam Narrative: General: Patient lying in bed rest comfortably did not appear to be in acute distress Head: Atraumatic, normocephalic Eyes: PERRL bilateral, EOMI bilateral, no conjunctival injection noted Neck: Soft, supple, trachea midline Cardiovascular: Regular rate and rhythm no murmurs gallops rubs noted Respiratory: Clear to auscultation bilaterally Extremities: Radial pulses +2/4 in the bilateral per extremities, patient was able to give me the okay sign and oppose her thumb to her pinky bilaterally and abduct adduct her fingers bilaterally. Neurological: Patient following commands knew that she was at [facility] year is 2023. Sensation grossly intact in the median ulnar and radial nerve distributions bilaterally Skin: Patient does have some ecchymosis to the dorsal aspect of her left hand at the base of the third and fourth finger Const Vital Signs: 12/20/23 07:57 Temperature 97.3 F L Temperature Source Temporal Pulse Rate 87 Respiratory Rate 16 Blood Pressure 117/88 H Blood Pressure Mean 97 Pulse Ox 100 Oxygen Delivery Method Room Air MDM MDM MDM Narrative Medical decision making narrative: Patient is a 18-year-old female who presents to the emergency department with a chief complaint of left hand pain since Wednesday. Patient will have an x-ray obtained here on the differential diagnose includes but not limited to metacarpal fracture, musculoskeletal strain. Once workup obtained reviewed she will be reevaluated. Patient be given ibuprofen for pain control. Patient's x-ray of her left hand was independently interpreted by myself and by radiology as well which showed an acute nondisplaced oblique fracture of the proximal shaft of the third metacarpal bone. Did place the patient in a volar splint with web roll followed by plaster followed by Chase wrap. Patient remained neurovascular intact status post splint application. Patient will be given follow- up with orthopedics. States that she will use ibuprofen Tylenol [id number] for pain control and icing. Patient was encouraged return with worsening symptoms or other concerns. She would like to go home at this point time all question concerns answered she is discharged home in stable condition. Discharge Plan Triage Chief Complaint: Upper Extremity Injury ED Provider: Donaldo East Dx/Rx/DC Orders Clinical Impression: Closed fracture of third metacarpal bone Prescriptions: No Action NK Primary Care Provider: Oseas Alvarez Referrals: Oseas Alvarez MD [Primary Care Provider] - Celestine Carr DO [Med Staff - Active Staff] - Activity Restrictions/Additiona l Instructions: Ice, use ibuprofen Tylenol [id number] for pain control. Follow-up with orthopedics that you referred to. Return for worsening symptoms or other concerns. Print Language: Solomon Islander Disposition Disposition: Home, Self Care What to do if you have Problems For any increased pain, shortness of breath, bleeding, nausea or vomiting, chest pain, or any unexpected problems, contact your Primary Care Provid (more content not included)... Normal [facility] Hand Min 3 Viewson 4 Hand Min 3 Views [facility] Imaging Services [address] [place], [place] [id number] Hand Min 3 Views MR#: [id number] Acct: [id number] Name: FATOUMATA CLARK Rep #: [id number] : 2005 F 18 From: Korin Lafleur MD PCP: Dr. Oseas Alvarez MD Status: PRE ER Study: Hand Min 3 Views Date of Exam: 12/20/23 Exam# [id number] Ordering Dr: Donaldo East DO [id number] STUDY: X-RAY - LEFT HAND REASON FOR EXAM: Female, 18 years old. pain TECHNIQUE: 3 view(s) of the hand. COMPARISON: None. FINDINGS: Normal radiocarpal articulation. Normal distal radioulnar joint. Normal visualized carpal bones. Normal carpal articulations Normal carpometacarpal articulation of the thumb. Normal second through fifth carpometacarpal joints. Acute nondisplaced oblique fracture of the proximal shaft of the third metacarpal bone. Normal metacarpophalangeal joint of the thumb. Normal interphalangeal joint of the thumb. Normal proximal and distal phalanges of the thumb. Normal metacarpophalangeal joints of the second through fifth fingers. Normal proximal and distal interphalangeal joints of the second through fifth fingers. Normal phalanges of the second through fifth fingers. The soft tissue structures are unremarkable. RAD/Hand Min 3 Views IMPRESSION: Acute nondisplaced oblique fracture the proximal shaft of the third metacarpal bone. Electronically Signed: Korin Lafleur MD at 8:50 EDT , CC: Dr. Oseas Alvarez MD; Dr. Donaldo East DO [employer]: Signed Normal [facility] Vital Signs Date Time Vital Sign Value Performing Clinician Facility 10-10-2024 16:11-0400 Body mass index (BMI) [Ratio] 34.24 kg/m2 Charley Medrano MD Work Phone: [facility] 10-10-2024 16:11-0400 Body weight 100.7 kg Charley Medrano MD Work Phone: [facility] 10-10-2024 16:11-0400 Diastolic blood pressure 80 mm[Hg] Charley Medrano MD Work Phone: [facility] 10-10-2024 16:11-0400 Systolic blood pressure 120 mm[Hg] Charley Medrano MD Work Phone: [facility] 10-03-2024 14:02-0400 Body mass index (BMI) [Ratio] 33.47 kg/m2 Haley Navarro MD Work Phone: [facility] 10-03-2024 14:02-0400 Body weight 98.43 kg Haley Navarro MD Work Phone: [facility] 10-03-2024 14:02-0400 Diastolic blood pressure 76 mm[Hg] Haley Navarro MD Work Phone: [facility] 10-03-2024 14:02-0400 Systolic blood pressure 128 mm[Hg] Haley Navarro MD Work Phone: [facility] 09-19-2024 10:49-0400 Body mass index (BMI) [Ratio] 31.24 kg/m2 Haley Navarro MD Work Phone: [facility] 09-19-2024 10:49-0400 Body weight 91.9 kg Haley Navarro MD Work Phone: [facility] 09-19-2024 10:49-0400 Diastolic blood pressure 64 mm[Hg] Haley Navarro MD Work Phone: [facility] 09-19-2024 10:49-0400 Systolic blood pressure 100 mm[Hg] Haley Navarro MD Work Phone: [facility] 09-05-2024 11:07-0400 Body height 171.5 cm Haley Navarro MD Work Phone: [facility] 09-05-2024 11:07-0400 Body mass index (BMI) [Ratio] 30.54 kg/m2 Haley Navarro MD Work Phone: [facility] 09-05-2024 11:07-0400 Body weight 89.81 kg Haley Navarro MD Work Phone: [facility] 09-05-2024 11:07-0400 Diastolic blood pressure 64 mm[Hg] Haley Navarro MD Work Phone: [facility] 09-05-2024 11:07-0400 Systolic blood pressure 114 mm[Hg] Haley Navarro MD Work Phone: [facility] 08-31-2024 13:34-0400 Body temperature 97.6 [degF] Dr. Oseas Alvarez MD Work Phone: [facility] 08-31-2024 13:34-0400 Diastolic blood pressure 65 mm[Hg] Dr. Oseas Alvarez MD Work Phone: [facility] 08-31-2024 13:34-0400 Heart rate 111 /min Dr. Oseas Alvarez MD Work Phone: [facility] 08-31-2024 13:34-0400 Respiratory rate 16 /min Dr. Oseas Alvarez MD Work Phone: [facility] 08-31-2024 13:34-0400 SaO2% (BldA) [Mass fraction] 91 % Dr. Oseas Alvarez MD Work Phone: [facility] 08-31-2024 13:34-0400 Systolic blood pressure 117 mm[Hg] Dr. Oseas Alvarez MD Work Phone: [facility] 08-31-2024 13:24-0400 Body height 172.[address] Oseas Alvarez MD Work Phone: [facility] 08-31-2024 13:24-0400 Body mass index (BMI) [Ratio] 29.7 kg/m2 Dr. Oseas Alvarez MD Work Phone: [facility] 08-31-2024 13:24-0400 Body weight 88.[address] Oseas Alvarez MD Work Phone: [facility] 08-15-2024 13:04-0400 Body mass index (BMI) [Ratio] 31.42 kg/m2 Haley Navarro MD Work Phone: [facility] 08-15-2024 13:04-0400 Body weight 85.64 kg Haley Navarro MD Work Phone: [facility] 08-15-2024 13:04-0400 Diastolic blood pressure 80 mm[Hg] Haley Navarro MD Work Phone: [facility] 08-15-2024 13:04-0400 Systolic blood pressure 120 mm[Hg] Haley Nvaarro MD Work Phone: [facility] 07-27-2024 10:57-0400 Body height 165.1 cm Haley Navarro MD Work Phone: [facility] 07-27-2024 10:39-0400 Body mass index (BMI) [Ratio] 30.12 kg/m2 Haley Navarro MD Work Phone: [facility] 07-27-2024 10:39-0400 Body weight 82.1 kg Haley Navarro MD Work Phone: [facility] 07-27-2024 10:39-0400 Diastolic blood pressure 68 mm[Hg] Haley Navarro MD Work Phone: [facility] 07-27-2024 10:39-0400 Systolic blood pressure 112 mm[Hg] Haley Navarro MD Work Phone: [facility] 07-04-2024 10:54-0400 Body mass index (BMI) [Ratio] 184.65 kg/m2 Haley Navarro MD Work Phone: [facility] 07-04-2024 10:54-0400 Body weight 78.02 kg Haley Navarro MD Work Phone: [facility] 07-04-2024 10:54-0400 Diastolic blood pressure 70 mm[Hg] Haley Navarro MD Work Phone: [facility] 07-04-2024 10:54-0400 Systolic blood pressure 100 mm[Hg] Haley Navarro MD Work Phone: [facility] 05-11-2024 09:52-0500 Body mass index (BMI) [Ratio] 156.74 kg/m2 Haley Navarro MD Work Phone: [facility] 05-11-2024 09:52-0500 Body weight 66.22 kg Haley Navarro MD Work Phone: [facility] 05-11-2024 09:52-0500 Diastolic blood pressure 78 mm[Hg] Haley Navarro MD Work Phone: [facility] 05-11-2024 09:52-0500 Systolic blood pressure 116 mm[Hg] Haley Navarro MD Work Phone: [facility] 05-08-2024 00:09-0500 Diastolic blood pressure 68 mm[Hg] Dr. Oseas Alvarez MD Work Phone: [facility] 05-08-2024 00:09-0500 Heart rate 89 /min Dr. Oseas Alvarez MD Work Phone: [facility] 05-08-2024 00:09-0500 Respiratory rate 18 /min Dr. Oseas Alvarez MD Work Phone: [facility] 05-08-2024 00:09-0500 SaO2% (BldA) [Mass fraction] 100 % Dr. Oseas Alvarez MD Work Phone: [facility] 05-08-2024 00:09-0500 Systolic blood pressure 101 mm[Hg] Dr. Oseas Alvarez MD Work Phone: [facility] 05-07-2024 22:09-0500 Body mass index (BMI) [Percentile] Per age and sex 58.3 % Dr. Oseas Alvarez MD Work Phone: [facility] 05-07-2024 22:09-0500 Body mass index (BMI) [Ratio] 22.4 kg/m2 Dr. Oseas Alvarez MD Work Phone: [facility] 05-07-2024 22:09-0500 Body temperature 97.9 [degF] Dr. Oseas Alvarez MD Work Phone: [facility] 05-07-2024 22:09-0500 Body weight [address] sOeas Alvarez MD Work Phone: [facility] 04-04-2024 08:31-0500 Body height 65 cm Coreen Shuqualak CONTOUR PATH TAPE MILL OPERATOR.MASTER SCHEDULER Work Phone: [facility] 04-04-2024 08:31-0500 Body mass index (BMI) [Ratio] 155.45 kg/m2 Coreen Shuqualak CONTOUR PATH TAPE MILL OPERATOR.MASTER SCHEDULER Work Phone: [facility] 04-04-2024 08:31-0500 Body weight 65.68 kg Coreen Jaxson CONTOUR PATH TAPE MILL OPERATOR.MASTER SCHEDULER Work Phone: [facility] 04-04-2024 08:31-0500 Diastolic blood pressure 60 mm[Hg] Coreen Shuqualak CONTOUR PATH TAPE MILL OPERATOR.MASTER SCHEDULER Work Phone: [facility] 04-04-2024 08:31-0500 Systolic blood pressure 114 mm[Hg] Coreen Shuqualak CONTOUR PATH TAPE MILL OPERATOR.MASTER SCHEDULER Work Phone: [facility] 12-29-2022 22:03-0400 Body height 172.72 cm [facility] 12-29-2022 22:03-0400 Body mass index (BMI) [Percentile] Per age and sex 31.3 % [facility] 12-29-2022 22:03-0400 Body mass index (BMI) [Ratio] 20 kg/m2 [facility] 12-29-2022 22:03-0400 Body temperature 97.5 [degF] [facility] 12-29-2022 22:03-0400 Body weight 59.87 kg [facility] 12-29-2022 22:03-0400 Diastolic blood pressure 60 mm[Hg] [facility] 12-29-2022 22:03-0400 Heart rate 131 /min [facility] 12-29-2022 22:03-0400 Respiratory rate 15 /min [facility] 12-29-2022 22:03-0400 SaO2% (BldA) [Mass fraction] 100 % [facility] 12-29-2022 22:03-0400 Systolic blood pressure 100 mm[Hg] [facility] 08-12-2022 21:11-0400 Body height 172.72 cm [facility] 08-12-2022 21:11-0400 Body mass index (BMI) [Percentile] Per age and sex 25.9 % [facility] 08-12-2022 21:11-0400 Body mass index (BMI) [Ratio] 19.5 kg/m2 [facility] 08-12-2022 21:11-0400 Body temperature 97.9 [degF] [facility] 08-12-2022 21:11-0400 Body weight 58.46 kg [facility] 08-12-2022 21:11-0400 Diastolic blood pressure 54 mm[Hg] [facility] 08-12-2022 21:11-0400 Heart rate 86 /min [facility] 08-12-2022 21:11-0400 Respiratory rate 15 /min [facility] 08-12-2022 21:11-0400 SaO2% (BldA) [Mass fraction] 99 % [facility] 08-12-2022 21:11-0400 Systolic blood pressure 113 mm[Hg] [facility] Encounters Encounter Date Encounter Type Care Provider Facility Start: 10-11-2024 End: 10-11-2024 ambulatory Mandi Gaitan MA [facility] Start: 10-11-2024 End: 10-11-2024 Patient encounter procedure Mandi Gaitan MA [facility] Comment on above: Population Health Na vigation Outreach (Ob/peds) Start: 10-10-2024 End: 10-10-2024 Patient encounter procedure 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 Tech [employer] [facility] Comment on above: Encounter for ultras ound to check growth (HCC) (Primary Dx); Polyhydramnios in third trimester complication, single or unspecified fetus (HCC); Obesity affecting in second trimester, unspecified obesity type (HCC); 37 weeks gestation of (HCC) Supervision of jyoti l first teen in first trimester (HCC) (Primary Dx); Polyhydramnios in third trimester complication, single or unspecified fetus (HCC); 37 weeks gestation of (HCC) Start: 10-03-2024 End: 10-03-2024 Patient encounter procedure Haley Navarro MD Work Phone: OB/Gynecology Comment on above: Polyhydramnios in th ird trimester complication, single or unspecified fetus (HCC) (Primary Dx); Encounter for supervision of normal first in third trimester (HCC); Excessive weight gain in , third trimester (HCC); 36 weeks gestation of (HCC) Start: 10-03-2024 End: 10-03-2024 ambulatory HALEY NAVARRO Facility:[facility] Start: 09-19-2024 End: 09-19-2024 E-mail encounter from caregiver Haley Navarro MD Work Phone: OB/Gynecology Start: 09-19-2024 End: 09-20-2024 Telephone encounter Haley Navarro MD Work Phone: OB/Gynecology Comment on above: Appointment Start: 09-19-2024 End: 09-19-2024 Patient encounter procedure Haley Navarro MD Work Phone: OB/Gynecology Comment on above: 34 weeks gestation o f (HCC) (Primary Dx); Encounter for supervision of normal first in third trimester (HCC) Encounter for ultras ound to check growth (HCC) (Primary Dx); Excessive weight gain in , third trimester (HCC); 34 weeks gestation of (HCC); Polyhydramnios in third trimester complication, single or unspecified fetus (HCC) Start: 09-19-2024 End: 09-19-2024 ambulatory Haley Navarro MD Work Phone: OB/Gynecology Comment on above: FMLA paperwork Start: 09-05-2024 End: 09-05-2024 Patient encounter procedure Haley Navarro MD Work Phone: OB/Gynecology Comment on above: Encounter for superv ision of normal first in third trimester (HCC) (Primary Dx); Chlamydia infection; 32 weeks gestation of (HCC); Excessive weight gain in , third trimester (HCC) Start: 09-05-2024 End: 09-05-2024 ambulatory [facility] Facility:[facility] Start: 08-31-2024 End: 08-31-[address] Oseas Alvarez MD Work Phone: [facility] Work Phone: Start: 08-31-2024 End: 08-31-2024 Patient encounter procedure Kaycee Kathleenhowie [facility] Work Phone: Start: 08-15-2024 End: 08-15-2024 Patient encounter procedure Haley Navarro MD Work Phone: OB/Gynecology Comment on above: 29 weeks gestation o f (HCC) (Primary Dx); Encounter for supervision of normal first in third trimester ([facility]) Start: 08-15-2024 End: 08-15-2024 ambulatory HALEY NAVARRO Facility:[facility] [place] Start: 07-28-2024 End: 09-27-2024 Follow-up encounter Haley Navarro MD Work Phone: OB/Gynecology Start: 07-27-2024 End: 07-27-2024 Patient encounter procedure Haley Navarro MD Work Phone: OB/Gynecology Comment on above: Encounter for superv ision of normal first in second trimester (HCC) (Primary Dx); 27 weeks gestation of (HCC) Start: 07-27-2024 End: 07-27-2024 ambulatory HALEY NAVARRO Facility:[facility] [place] Start: 07-04-2024 End: 07-04-2024 Patient encounter procedure Haley Navarro MD Work Phone: OB/Gynecology Comment on above: Screening for diabet es mellitus (Primary Dx); 23 weeks gestation of (HCC); Encounter for supervision of normal first in second trimester ([facility]) Start: 07-04-2024 End: 07-04-2024 ambulatory HALEY NAVARRO Facility:[facility] [place] Start: 06-12-2024 End: 08-12-2024 Follow-up encounter Marguerite Mathur MD Work Phone: OB/Gynecology Start: 06-08-2024 End: 06-08-2024 ambulatory HALEY NAVARRO Facility:[facility] [place] Start: 06-08-2024 End: 06-08-2024 Patient encounter procedure Whi [employer] 1 [employer] [facility] Comment on above: Encounter for anatomic survey (Primary Dx); Encounter for supervision of normal first in second trimester; 16 weeks gestation of Start: 05-16-2024 End: 07-16-2024 Follow-up encounter Haley Navarro MD Work Phone: OB/Gynecology Start: 05-12-2024 End: 07-12-2024 Follow-up encounter Coreen Puri CONTOUR PATH TAPE MILL OPERATOR.MASTER SCHEDULER Work Phone: OB/Gynecology Start: 05-11-2024 End: 05-11-2024 ambulatory COREEN PASADENA Facility:[facility] [place] Start: 05-11-2024 End: 05-11-2024 Patient encounter procedure Haley Navarro MD Work Phone: OB/Gynecology Comment on above: Encounter for superv ision of normal first in second trimester (Primary Dx); 16 weeks gestation of Start: 05-07-2024 End: 05-08-2024 Emergency department patient visit Dr. Joseph Zaragoza DO -Emergency Department Work Phone: Start: 04-06-2024 End: 04-06-2024 Telephone encounter Coreen Puri CONTOUR PATH TAPE MILL OPERATOR.MASTER SCHEDULER Work Phone: OB/Gynecology Comment on above: Results; STD Start: 04-04-2024 End: 04-04-2024 ambulatory COREEN PASADENA Facility:[facility] [place] Start: 04-04-2024 End: 04-04-2024 Patient encounter procedure Coreen Beasleycalf CONTOUR PATH TAPE MILL OPERATOR.MASTER SCHEDULER Work Phone: OB/Gynecology Comment on above: Uncertain dates, ant epartum, unspecified trimester (Primary Dx); 10 weeks gestation of ; Supervision of normal first teen in first trimester Start: 12-20-2023 End: 12-20-2023 Emergency department patient visit Donaldo East Facility:[facility] Start: 12-29-2022 End: 10-17-2023 Emergency department patient visit [facility]-Emergency Department Work Phone: Start: 08-12-2022 End: 08-12-2022 Emergency department patient visit [facility]-Emergency Department Procedures Date Procedure Procedure Detail Performing Clinician Start: 10-10-2024 Urnls dip stick/tabl et rgnt non-auto w/o micrscp Charley Medrano MD Work Phone: Start: 10-10-2024 Us preg uterus after 1st trimest 03/15 gestation Haley Navarro MD Work Phone: Start: 10-03-2024 Urnls dip stick/tabl et rgnt non-auto w/o micrscp Haley Navarro MD Work Phone: Start: 09-19-2024 Us preg uterus after 1st trimest 03/15 gestation Haley Navarro MD Work Phone: Start: 08-31-2024 Urnls dip stick/tabl et reagent auto microscopy Dr. Oseas Alvarez MD Work Phone: Start: 06-08-2024 Us preg uterus after 1st trimest 03/15 gestation Haley Navarro MD Work Phone: Start: 05-11-2024 Antibody screen HALEY NAVARRO Comment on above: Order Comment: Speci men Type: BLOOD SPECIMEN Ordering Facility: [facility] Address: [address] [place] [address] Performed By: #### T SPN #### CC MAIN BLOOD BANK [facility] [id number] [address] [place] [address] [place] Start: 05-07-2024 Urnls dip stick/tabl et reagent auto microscopy Dr. Oseas Alvarez MD Work Phone: Start: 05-07-[address] Oseas Alvarez MD Work Phone: Start: 05-07-2024 Measurement of renal function Dr. Oseas Alvarez MD Work Phone: Comment on above: GFR Calc Start: 05-07-2024 Ultrasonography for antepartum monitoring of fetus Dr. Oseas Alvarez MD Work Phone: Start: 05-07-[address] Oseas Alvarez MD Work Phone: Start: 04-04-2024 Us uterus l imited 1/> fetuses Coreen Puri APRN.MASTER SCHEDULER Work Phone: Start: 04-04-2024 Adult depression scr eening assessment Haley Navarro MD Work Phone: Plan of Treatment Date Care Activity Detail Author Start: 07-27-2034 Urine microalbumin profile DTaP,Tdap,Td Vaccine (8 - Td or Tdap) [facility] [facility] Start: 09-25-2026 Urine microalbumin profile DTaP,Tdap,Td Vaccine (7 - Td or Tdap) [facility] Start: 10-03-2025 GC (Gonorrhea) Screening (18-24) GC (Gonorrhea) Screening (18-24) [facility] Start: 10-03-2025 Screening for Chlamy farheen trachomatis Chlamydia Screening (18-24) [facility] Start: 06-08-2025 GC (Gonorrhea) Screening (18-24) GC (Gonorrhea) Screening (18-24) [facility] Start: 06-08-2025 Screening for Chlamy farheen trachomatis Chlamydia Screening (18-24) [facility] Start: 04-04-2025 Anxiety Screening Anxiety Screening [facility] Start: 04-04-2025 Depression Screening Depression Scre ening [facility] Start: 04-04-2025 GC (Gonorrhea) Screening (18-24) GC (Gonorrhea) Screening (18-24) [facility] Start: 04-04-2025 Screening for Chlamy farheen trachomatis Chlamydia Screening (18-24) [facility] Start: 11-13-2024 Influenza vaccination [facility] Start: 10-17-2024 End: 10-17-2024 Patient encounter procedure 10/17/2024 1:30 PM EDT Routine Office Visit OB/Gynecology [address] [place] [address] Charley Medrano MD [address] [place] [address] OB/ Ok per RR OB/Gynecology Comment on above: OB/ Ok per RR Start: 10-10-2024 End: 10-10-2024 Patient encounter procedure OB/Gynecology Comment on above: Growth Start: 10-03-2024 End: 10-03-2024 Patient encounter procedure OB/Gynecology Comment on above: N/A OB- FMLA paper work completed. copy is in chart prep folder for her employer Start: 09-19-2024 End: 09-19-2024 Patient encounter procedure Maternal Medicine Comment on above: Growth Growth /OB Start: 09-05-2024 End: 09-05-2025 OBSTETRIC ULTRASOUND WHI OBSTETRIC ULTRASOUND WHI Anc Imaging Routine 32 weeks gestation of (HCC) Excessive weight gain in , third trimester (HCC) Expected: 09/05/2024, Expires: 09/05/2025 [facility] Work Phone: Comment on above: Expected: 09/05/2024 , Expires: 09/05/2025 Start: 09-05-2024 End: 09-05-2024 Patient encounter procedure 09/05/2024 11:10 AM EDT Routine Office Visit OB/Gynecology [address] [place] [address] Haley Navarro MD [address] [place] [address] N/A OB/Gynecology Comment on above: N/A Start: 08-31-2024 Bacteria identified in Urine by Culture Urine Culture [facility] Start: 08-31-2024 End: 08-31-2024 [facility] Start: 08-31-2024 Nonstress test [facility] Start: 08-31-2024 Obstetric monitoring [facility] Start: 08-31-2024 Vital signs measurements [facility] Start: 08-31-2024 Patient discharge [facility] Start: 08-15-2024 End: 08-15-2024 Patient encounter procedure 08/15/2024 1:10 PM EDT Routine Office Visit OB/Gynecology [address] [place] [address] Haley Navarro MD [address] [place] [address] N/A OB/Gynecology Comment on above: N/A Start: 08-03-2024 End: 07-04-2025 GESTATIONAL GLUCOSE SCREEN, 1-HOUR, 50 GRAM, NON-FASTING GESTATIONAL GLUCOSE SCREEN, 1-HOUR, 50 GRAM, NON-FASTING Lab Routine Screening for diabetes mellitus Expected: 08/03/2024 (Approximate), Expires: 07/04/2025 [facility] Work Phone: Comment on above: Expected: 08/03/2024 (Approximate), Expires: 07/04/2025 Start: 08-03-2024 End: 07-04-2025 SYPHILIS TREPONEMAL W/REFLEX SYPHILIS TREPONEMAL W/REFLEX Lab Routine 23 weeks gestation of (HCC) Encounter for supervision of normal first in second trimester ([facility]) Expected: 08/03/2024 (Approximate), Expires: 07/04/2025 [facility] Comment on above: Expected: 08/03/2024 (Approximate), Expires: 07/04/2025 Start: 07-27-2024 End: 07-27-2024 Patient encounter procedure 07/27/2024 10:50 AM EDT Routine Office Visit OB/Gynecology [address] [place] [address] Haley Navarro MD [address] [place] [address] N/A OB/Gynecology Comment on above: N/A Start: 07-04-2024 End: 10-03-2024 ANEMIA REFLEX PANEL ANEMIA REFLEX PANEL Lab Routine 23 weeks gestation of (HCC) Encounter for supervision of normal first in second trimester (HCC) Expected: 07/04/2024 (Approximate), Expires: 10/03/2024 [facility] Comment on above: Expected: 07/04/2024 (Approximate), Expires: 10/03/2024 Start: 07-04-2024 End: 07-04-2024 Patient encounter procedure 07/04/2024 11:10 AM EDT Routine Office Visit OB/Gynecology [address] [place] [address] Haley Navarro MD [address] [place] [address] Routine visit OB/Gynecology Comment on above: Routine visit Start: 06-08-2024 End: 06-08-2024 Patient encounter procedure Maternal Medicine Comment on above: Anatomy Anatomy/OB Start: 05-11-2024 End: 08-10-2024 Chromosome 21 trisomy [Presence] in Blood or Tissue by Cytogenetics [facility] Comment on above: Expected: 05/11/2024 , Expires: 08/10/2024 Start: 05-11-2024 End: 05-11-2025 OBSTETRIC ULTRASOUND WHI OBSTETRIC ULTRASOUND WHI Anc Imaging Routine Encounter for supervision of normal first in second trimester 16 weeks gestation of Expected: 05/11/2024, Expires: 05/11/2025 [facility] Work Phone: Comment on above: Expected: 05/11/2024 , Expires: 05/11/2025 Start: 05-11-2024 End: 05-11-2024 Patient encounter procedure 05/11/2024 10:00 AM EST Routine Office Visit OB/Gynecology [address] [place] [address] Haley Navarro MD [address] [place] [address] ob lmp 11/ OB/Gynecology Comment on above: ob lmp 11/6 Start: 05-08-2024 [facility] Start: 04-04-2024 End: 07-04-2024 ANEMIA REFLEX PANEL ANEMIA REFLEX PANEL Lab Routine Uncertain dates, antepartum, unspecified trimester Expected: 04/04/2024, Expires: 07/04/2024 [facility] Work Phone: Comment on above: Expected: 04/04/2024 , Expires: 07/04/2024 Start: 04-04-2024 End: 07-04-2024 Hemoglobin A1c in Blood HEMOGLOBIN A1C Lab Routine Uncertain dates, antepartum, unspecified trimester Expected: 04/04/2024, Expires: 07/04/2024 [facility] Comment on above: Expected: 04/04/2024 , Expires: 07/04/2024 Start: 04-04-2024 End: 07-04-2024 Hepatitis B virus surface Ag [Presence] in Serum HEPATITIS B SURFACE ANTIGEN Lab Routine Uncertain dates, antepartum, unspecified trimester Expected: 04/04/2024, Expires: 07/04/2024 [facility] Comment on above: Expected: 04/04/2024 , Expires: 07/04/2024 Start: 04-04-2024 End: 07-04-2024 Hepatitis C virus Ab [Presence] in Serum HEPATITIS C ANTIBODY IA WITH CONFIRMATION Lab Routine Uncertain dates, antepartum, unspecified trimester Expected: 04/04/2024, Expires: 07/04/2024 [facility] Comment on above: Expected: 04/04/2024 , Expires: 07/04/2024 Start: 04-04-2024 End: 07-04-2024 HIV 1+2 Ab [Presence] in Serum or Plasma by Immunoassay HIV 1/2 COMBO WITH REFLEX TO DIFFERENTIATION Lab Routine Uncertain dates, antepartum, unspecified trimester Expected: 04/04/2024, Expires: 07/04/2024 [facility] Comment on above: Expected: 04/04/2024 , Expires: 07/04/2024 Start: 04-04-2024 End: 04-04-2025 OBSTETRIC ULTRASOUND WHI OBSTETRIC ULTRASOUND WHI Anc Imaging Routine 10 weeks gestation of Expected: 04/04/2024, Expires: 04/04/2025 [facility] Comment on above: Expected: 04/04/2024 , Expires: 04/04/2025 Start: 04-04-2024 End: 07-04-2024 RUBELLA IGG ANTIBODY RUBELLA IGG ANTIBODY Lab Routine Uncertain dates, antepartum, unspecified trimester Expected: 04/04/2024, Expires: 07/04/2024 [facility] Comment on above: Expected: 04/04/2024 , Expires: 07/04/2024 Start: 04-04-2024 End: 07-04-2024 SYPHILIS TREPONEMAL W/REFLEX SYPHILIS TREPONEMAL W/REFLEX Lab Routine Uncertain dates, antepartum, unspecified trimester Expected: 04/04/2024, Expires: 07/04/2024 [facility] Comment on above: Expected: 04/04/2024 , Expires: 07/04/2024 Start: 04-04-2024 End: 07-04-2024 TYPE + SCREEN TYPE + SCREEN Blood Bank Routine Uncertain dates, antepartum, unspecified trimester Expected: 04/04/2024, Expires: 07/04/2024 [facility] Comment on above: Expected: 04/04/2024 , Expires: 07/04/2024 Start: 11-14-2023 Covid-19 Vaccine ( season) Covid-19 Vaccine () [facility] Start: 11-14-2023 Influenza vaccination Influenza Vacc ine (#1) [facility] Start: 12-29-2022 End: 12-29-2022 [facility] Start: 2022 Anxiety Screening Anxiety Screening [facility] Start: 2022 Depression Screening Depression Scre ening [facility] Start: 2022 GC (Gonorrhea) Screening (18-24) GC (Gonorrhea) Screening (18-24) [facility] Start: 2022 Hepatitis C screening Hepatitis C Sc reening [facility] Start: 2022 HIV screening HIV Screening [facility] Start: 2022 Screening for Chlamy farheen trachomatis Chlamydia Screening (18-24) [facility] Start: 2020 Meningococcal B Vacc ine (1 of 2 - Standard) Meningococcal B Vaccine (1 of 2 - Standard) [facility] Start: 2020 Meningococcal B Vaccine: Consider Based On Risk (1 of 2 - Patient Seeks Protection) Meningococcal B Vaccine: Consider Based On Risk (1 of 2 - Patient Seeks Protection) [facility] Start: 2018 Peds To Adult Transition Annual Assessment Peds To Adult Transition Annual Assessment [facility] Start: 03-28-2017 HPV Vaccine (2 - 2-d ose series) HPV Vaccine (2 - 2-dose series) [facility] Start: 2016 Peds To Adult Transition Initial Discussion Peds To Adult Transition Initial Discussion [facility] Bacteria identified in Urine by Culture BACTERIAL CULTURE, URINE Microbiology Routine Uncertain dates, antepartum, unspecified trimester 04/04/2024 9:20 AM EST [facility] Chlamydia trachomatis+Neisseria gonorrhoeae DNA [Presence] in Unspecified specimen by QUINTIN with probe detection GONORRHEA/CHLAMYDIA NAAT Lab Routine Uncertain dates, antepartum, unspecified trimester 04/04/2024 9:20 AM [facility] Chlamydia trachomatis+Neisseria gonorrhoeae DNA [Presence] in Unspecified specimen by QUINTIN with probe detection GONORRHEA/CHLAMYDIA NAAT Lab Routine Polyhydramnios in third trimester complication, single or unspecified fetus (HCC) Encounter for supervision of normal first in third trimester ([facility]) Excessive weight gain in , third trimester ([facility]) 36 weeks gestation of ([facility]) 10/03/2024 2:16 PM EDT [facility] Work Phone: Patient referral [facility] Work Phone: ROUTINE, GR OUP B STREPTOCOCCUS BY PCR ROUTINE, GROUP B STREPTOCOCCUS BY PCR Microbiology Routine Polyhydramnios in third trimester complication, single or unspecified fetus (HCC) Encounter for supervision of normal first in third trimester ([facility]) Excessive weight gain in , third trimester ([facility]) 36 weeks gestation of ([facility]) 10/03/2024 2:16 PM EDT [facility] Work Phone: TRICHOMONAS VAGINALI S NAAT TRICHOMONAS VAGINALIS NAAT Lab Routine 10 weeks gestation of 04/04/2024 9:20 AM [facility] Urine culture [facility] URINE OB DIP B/O URINE OB DIP B/ O Lab Routine 34 weeks gestation of ([facility]) Encounter for supervision of normal first in third trimester ([facility]) Ordered: 09/19/2024 [facility] Work Phone: Comment on above: Ordered: 09/19/2024 Immunizations Immunization Date Immunization Notes Care Provider Sonal chilel 07-27-2024 tetanus toxoid, redu roman diphtheria toxoid, and acellular pertussis vaccine, adsorbed Haley Navarro MD Work Phone: [facility] 09-25-2016 Human Papillomavirus 9-valent vaccine Haley Navarro MD Work Phone: [facility] 09-25-2016 meningococcal polysaccharide (groups A, C, Y and W-135) diphtheria toxoid conjugate vaccine (MCV4P) Haley Navarro MD Work Phone: [facility] 09-25-2016 tetanus toxoid, redu roman diphtheria toxoid, and acellular pertussis vaccine, adsorbed Haley Navarro MD Work Phone: [facility] 09-25-2016 varicella virus vaccine Neelima Navarro MD Work Phone: [facility] 10-29-2009 diphtheria, tetanus toxoids and acellular pertussis vaccine Haley Navarro MD Work Phone: [facility] 10-29-2009 measles, mumps and rubella virus vaccine Haley Navarro MD Work Phone: [facility] 10-29-2009 poliovirus vaccine, inactivated Haley Navarro MD Work Phone: [facility] 09-01-2007 hepatitis A vaccine, pediatric/adolescent dosage, 2 dose schedule Haley Navarro MD Work Phone: [facility] 03-31-2006 hepatitis A vaccine, unspecified formulation Coreen Shuqualak CONTOUR PATH TAPE MILL OPERATOR.MASTER SCHEDULER Work Phone: [facility] 12-25-2005 diphtheria, tetanus toxoids and acellular pertussis vaccine Coreen Shuqualak CONTOUR PATH TAPE MILL OPERATOR.MASTER SCHEDULER Work Phone: [facility] 12-25-2005 haemophilus influenz ae type b vaccine, HbOC conjugate Coreen Shuqualak CONTOUR PATH TAPE MILL OPERATOR.MASTER SCHEDULER Work Phone: [facility] Work Phone: 08-24-2005 measles, mumps and rubella virus vaccine Coreen Jaxson CONTOUR PATH TAPE MILL OPERATOR.MASTER SCHEDULER Work Phone: [facility] 08-24-2005 pneumococcal conjuga te vaccine, 7 valent Coreen Jaxson CONTOUR PATH TAPE MILL OPERATOR.MASTER SCHEDULER Work Phone: [facility] 08-24-2005 varicella virus vaccine Branden e Jaxson CONTOUR PATH TAPE MILL OPERATOR.MASTER SCHEDULER Work Phone: [facility] 03-26-2005 diphtheria, tetanus toxoids and acellular pertussis vaccine Haley Navarro MD Work Phone: [facility] 03-26-2005 DTaP-hepatitis B and poliovirus vaccine Coreen Jaxson CONTOUR PATH TAPE MILL OPERATOR.MASTER SCHEDULER Work Phone: [facility] 03-26-2005 haemophilus influenz ae type b vaccine, HbOC conjugate Coreen Shuqualak CONTOUR PATH TAPE MILL OPERATOR.MASTER SCHEDULER Work Phone: [facility] 03-26-2005 hepatitis B vaccine, pediatric or pediatric/adolescent dosage Haley Navarro MD Work Phone: [facility] 03-26-2005 pneumococcal conjuga te vaccine, 7 valent Coreen Jaxson CONTOUR PATH TAPE MILL OPERATOR.MASTER SCHEDULER Work Phone: [facility] 03-26-2005 poliovirus vaccine, inactivated Haley Navarro MD Work Phone: [facility] 02-06-2005 diphtheria, tetanus toxoids and acellular pertussis vaccine Coreen Jaxson CONTOUR PATH TAPE MILL OPERATOR.MASTER SCHEDULER Work Phone: [facility] 02-06-2005 haemophilus influenz ae type b vaccine, HbOC conjugate Coreen Jaxson CONTOUR PATH TAPE MILL OPERATOR.MASTER SCHEDULER Work Phone: [facility] 02-06-2005 pneumococcal conjuga te vaccine, 7 valent Coreen Jaxson CONTOUR PATH TAPE MILL OPERATOR.MASTER SCHEDULER Work Phone: [facility] 02-06-2005 poliovirus vaccine, inactivated Coreen Jaxson CONTOUR PATH TAPE MILL OPERATOR.MASTER SCHEDULER Work Phone: [facility] 2004 diphtheria, tetanus toxoids and acellular pertussis vaccine Coreen Jaxson CONTOUR PATH TAPE 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.MASTER 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 Work Phone: [facility] 2004 haemophilus influenz ae type b vaccine, HbOC conjugate Coreen Jaxson CONTOUR PATH TAPE MILL OPERATOR.MASTER SCHEDULER Work Phone: [facility] 2004 pneumococcal conjuga te vaccine, 7 valent Coreen Jaxson CONTOUR PATH TAPE MILL OPERATOR.MASTER SCHEDULER Work Phone: [facility] 2004 poliovirus vaccine, inactivated Coreen Jaxson CONTOUR PATH TAPE MILL OPERATOR.MASTER SCHEDULER Work Phone: [facility] 2004 hepatitis B vaccine, pediatric or pediatric/adolescent dosage Coreen Shuqualak CONTOUR PATH TAPE MILL OPERATOR.MASTER SCHEDULER Work Phone: [facility] 2004 hepatitis B vaccine, pediatric or pediatric/adolescent dosage Coreen Shuqualak CONTOUR PATH TAPE MILL OPERATOR.MASTER SCHEDULER Work Phone: [facility] Payers Date Payer Category Payer Self-pay [id number] 2023 Medicaid [id number] 2009 Unknown [id number] Unknown [facility] [id number] Unknown [id number] Unknown [id number] Unknown [id number] Social History Date Type Detail Facility Start: 08-12-2022 End: 12-29-2022 Tobacco smoking status [facility] Unknown if ever smoked [facility] Start: 07-22-2020 Non-smoker [facility] Start: 2004 Sex Assigned At Female W [facility] Start: 04-04-2024 Tobacco smoking status NHIS Never smoked tobacco [facility] History of tobacco use Passive smoker [facility] Start: 04-04-2024 Tobacco use and exposure Smokeless tobacco non-user [facility] Start: 04-04-2024 End: 10-03-2024 Alcoholic beverage intake Lifetime non-drinker (finding) [facility] Start: 04-04-2024 End: 05-11-2024 History of Social function [facility] Start: 04-04-2024 End: 05-11-2024 Tobacco use panel [facility] National Score (1-100), lower number is lower risk 91 [facility] Start: 02-02-2024 [facility] Start: 2004 Sex assigned at Not on file C [facility] Start: 07-03-2024 Gender identity Identifies as female gender (finding) [facility] Start: 05-07-2024 Tobacco smoking status NHIS Smokes tobacco daily (finding) [facility] NEGATED: Highlighted row [facility] NEGATED: Highlighted row Not [facility] Mental Status Date Assessment Result Facility 12-29-2022 Cognitive function Level Of Cons ciousness Awake;Alert;Appropriate;Follow s Commands [facility] Work Phone: Clinical Notes 08-12-2022 to 10-11-2024 Mandi Gaitan MA - 10/11/2024 2:18 PM EDTPrenatal Quick Notes - Charley Medrano MD - 10/10/2024 4:35 PM EDTPrenatal Quick Notes - Charley Medrano MD - 10/10/2024 4:35 PM EDT Note Date & Type Note Facility 10-11-2024 History of Presen t illness Narrative [facility] NAVIGATION OUTREACH Action/FYI 1st attempt: Called and left message to call back to discuss spinner hand. message sent. Reason for Outreach Medicaid OB/Peds Care Gaps due: N/A Patient Contacted: Unable or unnecessary to reach patient: Unable to reach patient Left message MyChart message sent Navigation Signature: Mandi Winter MA October 11, 2024 2:19 PM documented in this encounter [facility] 10-10-2024 Progress note Formatting of t his note might be different from the original. RR- VB No. LOF No. CTXS irreg. Movement: present. Other c/o: No. Medication list reviewed. SENSITIVE EXAM: Sensitive exam not performed. Physical Exam See Flow Sheet Abd: soft, nontender, gravid Ext: edema: 1+ A/P 37w6d Estimated Date of Delivery: 10/25/24 Assessment & Plan Supervision of normal first teen in first trimester ([facility]) Orders: URINE OB DIP B/O Polyhydramnios in third trimester complication, single or unspecified fetus (HCC) mild. AGA w/ MVP 7.6 cm. Orders: URINE OB DIP B/O 37 weeks gestation of ([facility]) Orders: URINE OB DIP B/O Charley Medrano M.D. [facility] 10-10-2024 Miscellaneous Notes Formattin g of this note might be different from the original. RR- VB No. LOF No. CTXS irreg. Movement: present. Other c/o: No. Medication list reviewed. SENSITIVE EXAM: Sensitive exam not performed. Physical Exam See Flow Sheet Abd: soft, nontender, gravid Ext: edema: 1+ A/P 37w6d Estimated Date of Delivery: 10/25/24 Assessment & Plan Supervision of normal first teen in first trimester ([facility]) Orders: URINE OB DIP B/O Polyhydramnios in third trimester complication, single or unspecified fetus (HCC) mild. AGA w/ MVP 7.6 cm. Orders: URINE OB DIP B/O 37 weeks gestation of ([facility]) Orders: URINE OB DIP B/O Charley Medrano M.D. documented in this encounter [facility] 10-10-2024 Note Indication Evaluation of growth Impression - Single, live, intrauterine . - presentation is cephalic. - The biometry is consistent with the assigned gestational dating. - The EFW is 3470 g, at the 73%. AC is at the 92%. - The amniotic fluid volume is normal amount with an MVP of 7.6 cm and an BONIFACIO of 21.1 cm. - The placenta is anterior, fundal. - No malformations visualized on a limited survey as detailed below. Recommendations Additional follow-up as clinically indicated. Maternal Assessment Height 157 cm Height (ft) 5 ft Height (in) 2 in Physical Exam Initial weight (lb) 135 lb Initial BMI 24.69 kg/m Maternal assessment other: 1 Para 0 REMOTE READ Method Transabdominal ultrasound examination. View: Suboptimal view: limited by position Noble . Number of fetuses: 1 Dating LMP on: 01/19/2024 GA by LMP 37 w + 6 d URIAH by LMP: 10/25/2024 GA by prior assessment 37 w + 6 d [facility]AH by prior assessment: 10/25/2024 Ultrasound examination on: 10/10/2024 GA by U/S based upon: AC, BPD, Femur, HC GA by U/S 38 w + 1 d URIAH by U/S: 10/23/2024 Assigned: based on stated URIAH, selected on 06/08/2024 Assigned GA 37 w + 6 d Assigned URIAH: 10/25/2024 General Evaluation Cardiac activity present. FHR 149 bpm. movements: present. Presentation: cephalic Placenta: Placental site: anterior, fundal Umbilical cord: Cord vessels: 3 vessel cord Amniotic fluid: Amount of AF: normal amount. MVP 7.6 cm. BONIFACIO 21.1 cm. Q1 2.8 cm, Q2 5.8 cm, Q3 7.6 cm, Q4 4.9 cm Growth Overview Exam date GA BPD (mm) HC (mm) AC (mm) FL (mm) HL (mm) EFW (g) 06/08/2024 20w 1d 50.6 90% 178.5 55% 156.3 66% 34.2 83% 33.5 90% 370 74% 09/19/2024 34w 6d 89.4 85% 320.6 57% 330 96% 70.3 93% 2944 87% 10/10/2024 37w 6d 94.3 84% 336.4 56% 352.4 92% 72.1 66% 3470 73% Biometry Standard BPD 94.3 mm 38w 3d 84% Hadlock OFD 115.0 mm 36w 0d 44% Nicolaides HC 336.4 mm 38w 2d 56% Sunita AC 352.4 mm 39w 1d 92% Hadlock Femur 72.1 mm 36w 3d 66% Sunita EFW 3,470 g 39w 1d 73% Hadlock EFW (lb) 7 lb EFW (oz) 10 oz EFW by: Hadlock (HC-AC-FL) Extended Associate Professor Of Media [employer] 7.1 mm Extremities / Bony Struc FL / HC 0.21 Other Structures FHR 149 bpm Anatomy Lateral ventricles: normal Cavum septi pellucidi: normal Cerebellum: suboptimally visualized Cisterna magna: suboptimally visualized 4-chamber view: normal RVOT view: suboptimally visualized LVOT view: normal 3-vessel view: normal Heart / Thorax Situs: situs solitus (normal) Diaphragm: normal Stomach: normal Kidneys: normal Bladder: normal sex: male Wants to know sex: yes Performed By: Ratna Yuan RDMS, RVT Read By: Selma Aguirre M.D. MATERNAL MEDICINE 10-10-2024 Instructions Aida Hernandez MA - 10/10/2024 4:10 PM EDT SEQUENTIAL SCREENINGS The [facility] offers sequential screenings for women who are interested in screenings for chromosomal abnormalities and certain defects during a . The sequential screen combines ultrasound and blood tests to determine the risk of chromosomal abnormalities, including Down's Syndrome (Trisomy 21) and Trisomy 18, as well as open neural tube defects including spina bifida. Ultrasound examination is performed between 11 weeks and 13 weeks gestational age. Blood tests are drawn after the ultrasound and again later in the between 15 and 21 weeks gestational age. Please let your physician know if you are interested in this testing. It will require an appointment with our mail technician. This is not an ultrasound performed by a physician in our office during a routine visit. SIGNS AND SYMPTOMS OF LABOR 1. Contractions every 10 minutes or more often 2. Clear, pink, or brownish fluid (water) leaking from vagina 3. Feeling that baby is pushing down, pressure 4. Low, dull backache 5. Cramps that feel like a period 6. Cramps with or without diarrhea If you notice any of the above symptoms, contact our office at [phone] and ask to speak with a nurse. After hours, you can call doctors registry at [phone] OR call [facility] at [phone] and ask to have the doctor ux consultant paged. If you consider this an emergency, dial 11-13-0 or go to your nearest emergency department. NEED HELP? Are you dealing with a violent or abusive relationship? Are you a victim of rape or sexual assult? Call [facility] ([place]) 24 hour Crisis Hotline: 950.771.8086 or 399-403-4286. MANUAL Your Guide to a Healthy manual is now on-line. Visit [facility] [email or web address] to download your free copy documented in this encounter [facility] 10-03-2024 Progress note Formatting of t his note might be different from the original. KJ - S: Fatoumata denies LOF, contractions or vaginal bleeding. O: 36w6d, see flow sheet SENSITIVE EXAM: The sensitive examination was discussed with the Patient or Patient's Authorized Cloth Trimmer Hand. As applicable, any other physician, advance practice provider, medical student, or other health professional student that will be observing or involved in the sensitive examination for educational or training purposes was discussed with the Patient or Authorized Cloth Trimmer Hand. The Patient or Authorized Cloth Trimmer Hand has agreed to proceed with the sensitive examination. (Sensitive examination includes inspection and/or palpation of the breasts, pelvis, prostate and anorectal regions). A/P: Assessment & Plan Polyhydramnios in third trimester complication, single or unspecified fetus ([facility]) Orders: URINE OB DIP B/O ROUTINE, GROUP B STREPTOCOCCUS BY PCR GONORRHEA/CHLAMYDIA NAAT Encounter for supervision of normal first in third trimester ([facility]) Orders: URINE OB DIP B/O ROUTINE, GROUP B STREPTOCOCCUS BY PCR GONORRHEA/CHLAMYDIA NAAT Excessive weight gain in , third trimester ([facility]) Growth US 2 week ago shows EFW at 87% and mild polyhydramnios. Orders: URINE OB DIP B/O ROUTINE, GROUP B STREPTOCOCCUS BY PCR GONORRHEA/CHLAMYDIA NAAT 36 weeks gestation of ([facility]) Orders: URINE OB DIP B/O ROUTINE, GROUP B STREPTOCOCCUS BY PCR GONORRHEA/CHLAMYDIA NAAT Reviewed labor & FM precautions Haley Navarro MD [facility] 10-03-2024 Miscellaneous Notes Formattin g of this note might be different from the original. KJ - S: Fatoumata denies LOF, contractions or vaginal bleeding. O: 36w6d, see flow sheet SENSITIVE EXAM: The sensitive examination was discussed with the Patient or Patient's Authorized Cloth Trimmer Hand. As applicable, any other physician, advance practice provider, medical student, or other health professional student that will be observing or involved in the sensitive examination for educational or training purposes was discussed with the Patient or Authorized Cloth Trimmer Hand. The Patient or Authorized Cloth Trimmer Hand has agreed to proceed with the sensitive examination. (Sensitive examination includes inspection and/or palpation of the breasts, pelvis, prostate and anorectal regions). A/P: Assessment & Plan Polyhydramnios in third trimester complication, single or unspecified fetus ([facility]) Orders: URINE OB DIP B/O ROUTINE, GROUP B STREPTOCOCCUS BY PCR GONORRHEA/CHLAMYDIA NAAT Encounter for supervision of normal first in third trimester ([facility]) Orders: URINE OB DIP B/O ROUTINE, GROUP B STREPTOCOCCUS BY PCR GONORRHEA/CHLAMYDIA NAAT Excessive weight gain in , third trimester ([facility]) Growth US 2 week ago shows EFW at 87% and mild polyhydramnios. Orders: URINE OB DIP B/O ROUTINE, GROUP B STREPTOCOCCUS BY PCR GONORRHEA/CHLAMYDIA NAAT 36 weeks gestation of ([facility]) Orders: URINE OB DIP B/O ROUTINE, GROUP B STREPTOCOCCUS BY PCR GONORRHEA/CHLAMYDIA NAAT Reviewed labor & FM precautions Haley Navarro MD documented in this encounter [facility] 10-03-2024 Instructions Ashley Burnett MA - 10/03/2024 1:50 PM EDT SEQUENTIAL SCREENINGS The [facility] offers sequential screenings for women who are interested in screenings for chromosomal abnormalities and certain defects during a . The sequential screen combines ultrasound and blood tests to determine the risk of chromosomal abnormalities, including Down's Syndrome (Trisomy 21) and Trisomy 18, as well as open neural tube defects including spina bifida. Ultrasound examination is performed between 11 weeks and 13 weeks gestational age. Blood tests are drawn after the ultrasound and again later in the between 15 and 21 weeks gestational age. Please let your physician know if you are interested in this testing. It will require an appointment with our mail technician. This is not an ultrasound performed by a physician in our office during a routine visit. SIGNS AND SYMPTOMS OF LABOR 1. Contractions every 10 minutes or more often 2. Clear, pink, or brownish fluid (water) leaking from vagina 3. Feeling that baby is pushing down, pressure 4. Low, dull backache 5. Cramps that feel like a period 6. Cramps with or without diarrhea If you notice any of the above symptoms, contact our office at [phone] and ask to speak with a nurse. After hours, you can call doctors registry at [phone] OR call [facility] at [phone] and ask to have the doctor ux consultant paged. If you consider this an emergency, dial 9-1-2 or go to your nearest emergency department. NEED HELP? Are you dealing with a violent or abusive relationship? Are you a victim of rape or sexual assult? Call [facility] ([place]) 24 hour Crisis Hotline: 852.146.5641 or 605-536-4641. MANUAL Your Guide to a Healthy manual is now on-line. Visit [email or web address] to download your free copy documented in this encounter [facility] 09-19-2024 Telephone encount er Note Tried reaching Pt via phone; However, voicemail box is full at this time and unable to leave a voicemail. Mediastay message sent to Pt. Denise Combs RN [facility] 09-19-2024 Telephone encount er Note Haley Navarro MD to [facility] [place] 09/19/24 3:55 PM Result Note Needs growth US in 4 weeks. Polyhydramnios on US today. Haley Navarro MD OBSTETRIC ULTRASOUND I [facility] 09-19-2024 Miscellaneous Notes Formattin g of this note might be different from the original. Tried reaching Pt via phone; However, voicemail box is full at this time and unable to leave a voicemail. Mediastay message sent to Pt. Denise Combs RN Haley Navarro MD to [facility] [place] 09/19/24 3:55 PM Result Note Needs growth US in 4 weeks. Polyhydramnios on US today. Haley Navarro MD OBSTETRIC ULTRASOUND [facility] documented in this encounter [facility] 09-19-2024 Note Indication Evaluation of growth, excessive weight gain Impression - Single, live, intrauterine . - presentation is cephalic. - The biometry is consistent with the assigned gestational dating. - The EFW is 2944 g, at the 87%. AC is at the 96%. - The amniotic fluid volume is mild polyhydramnios with an MVP of 9.1 cm and an BONIFACIO of 21 cm. - The placenta is anterior. - No malformations visualized on a limited survey as detailed below. Ultrasound Consultation Polyhydramnios was identified. Polyhydramnios is typically defined by an amniotic fluid index > 24 cm or a MVP > 8 cm. The leading diagnosis for increased fluid in the third trimester is idiopathic (i.e. normal variant). The differential diagnosis also includes maternal conditions such as diabetes mellitus or insulin resistance, Rare causes include hydrops, absence of swallowing which can be secondary to neurologic conditions or GI obstruction such as esophageal atresia or duodenal atresia. There is no evidence of any structural abnormalities on ultrasound. With any ultrasound there is potential for non-visualized malformations. Recommendations Growth in four weeks Maternal Assessment Height 157 cm Height (ft) 5 ft Height (in) 2 in Physical Exam Initial weight (lb) 135 lb Initial BMI 24.69 kg/m Maternal assessment other: 1 Para 0 Method Transabdominal ultrasound examination, Color Doppler examination. View: Suboptimal view: limited by position Noble . Number of fetuses: 1 Dating LMP on: 01/19/2024 GA by LMP 34 w + 6 d URIAH by LMP: 10/25/2024 GA by prior assessment 34 w + 6 d URIAH by prior assessment: 10/25/2024 Ultrasound examination on: 09/19/2024 GA by U/S based upon: AC, BPD, Femur, HC GA by U/S 36 w + 0 d URIAH by U/S: 10/17/2024 Assigned: based on stated URIAH, selected on 06/08/2024 Assigned GA 34 w + 6 d Assigned URIAH: 10/25/2024 General Evaluation Cardiac activity present. FHR 146 bpm. movements: present. Presentation: cephalic Placenta: Placental site: anterior Umbilical cord: Cord vessels: 3 vessel cord Amniotic fluid: Amount of AF: polyhydramnios. MVP 9.1 cm. BONIFACIO 21.0 cm. Q1 4.7 cm, Q2 9.1 cm, Q3 2.8 cm, Q4 4.4 cm Growth Overview Exam date GA BPD (mm) HC (mm) AC (mm) FL (mm) HL (mm) EFW (g) 06/08/2024 20w 1d 50.6 90% 178.5 55% 156.3 66% 34.2 83% 33.5 90% 370 74% 09/19/2024 34w 6d 89.4 85% 320.6 57% 330 96% 70.3 93% 2944 87% Biometry Standard BPD 89.4 mm 36w 1d 85% Hadlock OFD 107.7 mm 32w 2d 19% Nicolaides HC 320.6 mm 35w 2d 57% Sunita AC 330.0 mm 36w 6d 96% Hadlock Femur 70.3 mm 35w 4d 93% Sunita EFW 2,944 g 36w 4d 87% Hadlock EFW (lb) 6 lb EFW (oz) 8 oz EFW by: Hadlock (HC-AC-FL) Extremities / Bony Struc FL / HC 0.22 Other Structures FHR 146 bpm Anatomy Lateral ventricles: normal Cavum septi pellucidi: suboptimally visualized Cerebellum: normal Cisterna magna: normal 4-chamber view: normal RVOT view: normal LVOT view: normal 3-vessel view: suboptimally visualized Heart / Thorax Situs: situs solitus (normal) Diaphragm: normal Stomach: normal Kidneys: normal Bladder: normal sex: male Wants to know sex: yes Performed By: Monica Grewal RDMS Read By: Selma Aguirre M.D. [facility] 09-19-2024 Progress note Formatting of t his note might be different from the original. KJ - S: Fatoumata denies LOF, contractions or vaginal bleeding. O: 34w6d, see flow sheet SENSITIVE EXAM: Sensitive exam not performed. A/P: Assessment & Plan 34 weeks gestation of ([facility]) Orders: URINE OB DIP B/O Encounter for supervision of normal first in third trimester ([facility]) Orders: URINE OB DIP B/O Growth US today Reviewed PTL & FM precautions Haley Navarro MD [facility] 09-19-2024 Miscellaneous Notes Formattin g of this note might be different from the original. KJ - S: Fatoumata denies LOF, contractions or vaginal bleeding. O: 34w6d, see flow sheet SENSITIVE EXAM: Sensitive exam not performed. A/P: Assessment & Plan 34 weeks gestation of ([facility]) Orders: URINE OB DIP B/O Encounter for supervision of normal first in third trimester ([facility]) Orders: URINE OB DIP B/O Growth US today Reviewed PTL & FM precautions Haley Navarro MD documented in this encounter [facility] 09-19-2024 Instructions Mandi Navas MA - 09/19/2024 10:49 AM EDT SEQUENTIAL SCREENINGS The [facility] offers sequential screenings for women who are interested in screenings for chromosomal abnormalities and certain defects during a . The sequential screen combines ultrasound and blood tests to determine the risk of chromosomal abnormalities, including Down's Syndrome (Trisomy 21) and Trisomy 18, as well as open neural tube defects including spina bifida. Ultrasound examination is performed between 11 weeks and 13 weeks gestational age. Blood tests are drawn after the ultrasound and again later in the between 15 and 21 weeks gestational age. Please let your physician know if you are interested in this testing. It will require an appointment with our mail technician. This is not an ultrasound performed by a physician in our office during a routine visit. SIGNS AND SYMPTOMS OF LABOR 1. Contractions every 10 minutes or more often 2. Clear, pink, or brownish fluid (water) leaking from vagina 3. Feeling that baby is pushing down, pressure 4. Low, dull backache 5. Cramps that feel like a period 6. Cramps with or without diarrhea If you notice any of the above symptoms, contact our office at [phone] and ask to speak with a nurse. After hours, you can call doctors registry at [phone] OR call [facility] at [phone] and ask to have the doctor ux consultant paged. If you consider this an emergency, dial 9--6 or go to your nearest emergency department. NEED HELP? Are you dealing with a violent or abusive relationship? Are you a victim of rape or sexual assult? Call [facility] ([place]) 24 hour Crisis Hotline: 333.660.5735 or 271-531-4568. MANUAL Your Guide to a Healthy manual is now on-line. Visit [email or web address] to download your free copy documented in this encounter [facility] 09-05-2024 Progress note Formatting of t his note might be different from the original. KJ - S: Fatoumata denies LOF, contractions or vaginal bleeding. O: 32w6d, see flow sheet SENSITIVE EXAM: Sensitive exam not performed. A/P: Assessment & Plan Encounter for supervision of normal first in third trimester (HCC) Chlamydia infection Repeat at 36 weeks 32 weeks gestation of (HCC) Excessive weight gain in , third trimester (HCC) Orders: OBSTETRIC ULTRASOUND WHI; Future Reviewed PTL & FM precautions Haley Navarro MD [facility] 09-05-2024 Miscellaneous Notes Formattin g of this note might be different from the original. KJ - S: Fatoumata denies LOF, contractions or vaginal bleeding. O: 32w6d, see flow sheet SENSITIVE EXAM: Sensitive exam not performed. A/P: Assessment & Plan Encounter for supervision of normal first in third trimester (HCC) Chlamydia infection Repeat at 36 weeks 32 weeks gestation of (HCC) Excessive weight gain in , third trimester (HCC) Orders: OBSTETRIC ULTRASOUND WHI; Future Reviewed PTL & FM precautions Haley Navarro MD documented in this encounter [facility] 09-05-2024 Instructions Aida Hernandez MA - 09/05/2024 11:03 AM EDT SEQUENTIAL SCREENINGS The [facility] offers sequential screenings for women who are interested in screenings for chromosomal abnormalities and certain defects during a . The sequential screen combines ultrasound and blood tests to determine the risk of chromosomal abnormalities, including Down's Syndrome (Trisomy 21) and Trisomy 18, as well as open neural tube defects including spina bifida. Ultrasound examination is performed between 11 weeks and 13 weeks gestational age. Blood tests are drawn after the ultrasound and again later in the between 15 and 21 weeks gestational age. Please let your physician know if you are interested in this testing. It will require an appointment with our mail technician. This is not an ultrasound performed by a physician in our office during a routine visit. SIGNS AND SYMPTOMS OF LABOR 1. Contractions every 10 minutes or more often 2. Clear, pink, or brownish fluid (water) leaking from vagina 3. Feeling that baby is pushing down, pressure 4. Low, dull backache 5. Cramps that feel like a period 6. Cramps with or without diarrhea If you notice any of the above symptoms, contact our office at [phone] and ask to speak with a nurse. After hours, you can call doctors registry at [phone] OR call [facility] at [phone] and ask to have the doctor ux consultant paged. If you consider this an emergency, dial 8-6-0 or go to your nearest emergency department. NEED HELP? Are you dealing with a violent or abusive relationship? Are you a victim of rape or sexual assult? Call [facility] ([facility] 24 hour Crisis Hotline: 326.716.4013 or 982-768-9314. MANUAL Your Guide to a Healthy manual is now on-line. Visit [email or web address] to download your free copy documented in this encounter [facility] 08-15-2024 Progress note Formatting of t his note might be different from the original. KJ - S: Fatoumata denies LOF, contractions or vaginal bleeding. She reports heartburn. O: 29w6d, see flow sheet SENSITIVE EXAM: Sensitive exam not performed. A/P: Assessment & Plan 29 weeks gestation of ([facility]) Encounter for supervision of normal first in third trimester ([facility]) Heartburn - rx pepcid. Advised on diet. Reviewed PTL & FM precautions Haley Navarro MD [facility] 08-15-2024 Miscellaneous Notes Formattin g of this note might be different from the original. KJ - S: Fatoumata denies LOF, contractions or vaginal bleeding. She reports heartburn. O: 29w6d, see flow sheet SENSITIVE EXAM: Sensitive exam not performed. A/P: Assessment & Plan 29 weeks gestation of ([facility]) Encounter for supervision of normal first in third trimester ([facility]) Heartburn - rx pepcid. Advised on diet. Reviewed PTL & FM precautions Haley Navarro MD documented in this encounter [facility] 08-15-2024 Instructions Mandi Navas MA - 08/15/2024 1:03 PM EDT SEQUENTIAL SCREENINGS The [facility] offers sequential screenings for women who are interested in screenings for chromosomal abnormalities and certain defects during a . The sequential screen combines ultrasound and blood tests to determine the risk of chromosomal abnormalities, including Down's Syndrome (Trisomy 21) and Trisomy 18, as well as open neural tube defects including spina bifida. Ultrasound examination is performed between 11 weeks and 13 weeks gestational age. Blood tests are drawn after the ultrasound and again later in the between 15 and 21 weeks gestational age. Please let your physician know if you are interested in this testing. It will require an appointment with our mail technician. This is not an ultrasound performed by a physician in our office during a routine visit. SIGNS AND SYMPTOMS OF LABOR 1. Contractions every 10 minutes or more often 2. Clear, pink, or brownish fluid (water) leaking from vagina 3. Feeling that baby is pushing down, pressure 4. Low, dull backache 5. Cramps that feel like a period 6. Cramps with or without diarrhea If you notice any of the above symptoms, contact our office at [phone] and ask to speak with a nurse. After hours, you can call doctors registry at [phone] OR call [facility] at [phone] and ask to have the doctor ux consultant paged. If you consider this an emergency, dial 9--2 or go to your nearest emergency department. NEED HELP? Are you dealing with a violent or abusive relationship? Are you a victim of rape or sexual assult? Call [facility] ([place]) 24 hour Crisis Hotline: 528.138.7595 or 637-063-3858. MANUAL Your Guide to a Healthy manual is now on-line. Visit [email or web address] to download your free copy documented in this encounter [facility] 07-27-2024 Progress note Formatting of t his note might be different from the original. KJ - S: Fatoumata denies LOF, contractions or vaginal bleeding. O: 27w1d, see flow sheet SENSITIVE EXAM: Sensitive exam not performed. A/P: Assessment & Plan Encounter for supervision of normal first in second trimester (HCC) 27 weeks gestation of (HCC) Ordered Tdap Declines LARC 28wk labs today Reviewed PTL & FM precautions Haley Navarro MD [facility] 07-27-2024 Miscellaneous Notes Formattin g of this note might be different from the original. KJ - S: Fatoumata denies LOF, contractions or vaginal bleeding. O: 27w1d, see flow sheet SENSITIVE EXAM: Sensitive exam not performed. A/P: Assessment & Plan Encounter for supervision of normal first in second trimester (HCC) 27 weeks gestation of (HCC) Ordered Tdap Declines LARC 28wk labs today Reviewed PTL & FM precautions Haley Navarro MD documented in this encounter [facility] 07-27-2024 Note HNO ID: [id number] Author: NINOSKA SEARS MA Service: ? Author Type: Conformal Pad Former Type: Progress Notes Filed: 07/27/2024 11:13 Note Text: Patient identified by name and date of . Fatoumata Clark presents today for a vaccination of Tdap. Patient denies an allergy to latex: yes Patient denies a severe (life-threatening) allergy to a previous dose of Tdap, DTP, DTaP, DT or Td vaccine. Yes Patient denies history of epilepsy or neurological problems: Yes Patient is afebrile and denies being moderately or severely ill: Yes Patient denies history of Guillain-[place] Syndrome (a severe paralytic illness): Yes Tdap Adacel injection was given without incident. See immunizations for details of immunizations administered today. VIS sheet provided: Yes Provider Dr Navarro was present in office at time of injection. Ninoska Sears MA [place] 07-27-2024 History of Presen t illness Narrative Patient identified by name and date of . Fatoumata Clark presents today for a vaccination of Tdap. Patient denies an allergy to latex: yes Patient denies a severe (life-threatening) allergy to a previous dose of Tdap, DTP, DTaP, DT or Td vaccine. Yes Patient denies history of epilepsy or neurological problems: Yes Patient is afebrile and denies being moderately or severely ill: Yes Patient denies history of Guillain-[place] Syndrome (a severe paralytic illness): Yes Tdap Adacel injection was given without incident. See immunizations for details of immunizations administered today. VIS sheet provided: Yes Provider Dr Navarro was present in office at time of injection. Ninoska Sears MA documented in this encounter [facility] 07-27-2024 Instructions Ashley Burnett MA - 07/27/2024 10:35 AM EDT SEQUENTIAL SCREENINGS The [facility] offers sequential screenings for women who are interested in screenings for chromosomal abnormalities and certain defects during a . The sequential screen combines ultrasound and blood tests to determine the risk of chromosomal abnormalities, including Down's Syndrome (Trisomy 21) and Trisomy 18, as well as open neural tube defects including spina bifida. Ultrasound examination is performed between 11 weeks and 13 weeks gestational age. Blood tests are drawn after the ultrasound and again later in the between 15 and 21 weeks gestational age. Please let your physician know if you are interested in this testing. It will require an appointment with our mail technician. This is not an ultrasound performed by a physician in our office during a routine visit. SIGNS AND SYMPTOMS OF LABOR 1. Contractions every 10 minutes or more often 2. Clear, pink, or brownish fluid (water) leaking from vagina 3. Feeling that baby is pushing down, pressure 4. Low, dull backache 5. Cramps that feel like a period 6. Cramps with or without diarrhea If you notice any of the above symptoms, contact our office at [phone] and ask to speak with a nurse. After hours, you can call doctors registry at [phone] OR call [facility] at [phone] and ask to have the doctor ux consultant paged. If you consider this an emergency, dial 9-1-1 or go to your nearest emergency department. NEED HELP? Are you dealing with a violent or abusive relationship? Are you a victim of rape or sexual assult? Call [facility] ([place]) 24 hour Crisis Hotline: 944.934.7984 or 181-007-0835. MANUAL Your Guide to a Healthy manual is now on-line. Visit [email or web address] to download your free copy documented in this encounter [facility] 07-04-2024 Progress note Formatting of t his note might be different from the original. KJ - S: Fatoumata denies LOF, contractions or vaginal bleeding. O: 23w6d, see flow sheet SENSITIVE EXAM: Sensitive exam not performed. A/P: Assessment & Plan Screening for diabetes mellitus Orders: GESTATIONAL GLUCOSE SCREEN, 1-HOUR, 50 GRAM, NON-FASTING; Future 23 weeks gestation of (HCC) Orders: SYPHILIS TREPONEMAL W/REFLEX; Future ANEMIA REFLEX PANEL; Future Encounter for supervision of normal first in second trimester (HCC) Orders: SYPHILIS TREPONEMAL W/REFLEX; Future ANEMIA REFLEX PANEL; Future Haley Navarro MD [facility] 07-04-2024 Miscellaneous Notes Formattin g of this note might be different from the original. KJ - S: Fatoumata denies LOF, contractions or vaginal bleeding. O: 23w6d, see flow sheet SENSITIVE EXAM: Sensitive exam not performed. A/P: Assessment & Plan Screening for diabetes mellitus Orders: GESTATIONAL GLUCOSE SCREEN, 1-HOUR, 50 GRAM, NON-FASTING; Future 23 weeks gestation of (HCC) Orders: SYPHILIS TREPONEMAL W/REFLEX; Future ANEMIA REFLEX PANEL; Future Encounter for supervision of normal first in second trimester ([facility]) Orders: SYPHILIS TREPONEMAL W/REFLEX; Future ANEMIA REFLEX PANEL; Future Haley Navarro MD documented in this encounter [facility] 07-04-2024 Instructions Mandi Navas MA - 07/04/2024 10:52 AM EDT SEQUENTIAL SCREENINGS The [facility] offers sequential screenings for women who are interested in screenings for chromosomal abnormalities and certain defects during a . The sequential screen combines ultrasound and blood tests to determine the risk of chromosomal abnormalities, including Down's Syndrome (Trisomy 21) and Trisomy 18, as well as open neural tube defects including spina bifida. Ultrasound examination is performed between 11 weeks and 13 weeks gestational age. Blood tests are drawn after the ultrasound and again later in the between 15 and 21 weeks gestational age. Please let your physician know if you are interested in this testing. It will require an appointment with our mail technician. This is not an ultrasound performed by a physician in our office during a routine visit. SIGNS AND SYMPTOMS OF LABOR 1. Contractions every 10 minutes or more often 2. Clear, pink, or brownish fluid (water) leaking from vagina 3. Feeling that baby is pushing down, pressure 4. Low, dull backache 5. Cramps that feel like a period 6. Cramps with or without diarrhea If you notice any of the above symptoms, contact our office at [phone] and ask to speak with a nurse. After hours, you can call [place] registry at [phone] OR call [facility] at [phone] and ask to have the doctor ux consultant paged. If you consider this an emergency, dial 9-1-2 or go to your nearest emergency department. NEED HELP? Are you dealing with a violent or abusive relationship? Are you a victim of rape or sexual assult? Call [facility] ([place]) 24 hour Crisis Hotline: 471.875.1336 or 729-964-5723. MANUAL Your Guide to a Healthy manual is now on-line. Visit [email or web address] to download your free copy documented in this encounter [facility] 05-11-2024 Progress note Formatting of t his note might be different from the original. KJ - VB No. LOF No. CTXS No. Movement: absent. Other c/o: No. Medication list reviewed. Physical Exam See Flow Sheet Gen: no accute distress, well appearing Abd: soft, nontender, gravid A/P 16w1d Estimated Date of Delivery: 10/25/24 Anatomy US ordered NIPT today Chlamydia - patient took medication about 2 weeks ago. Needs GERARD next visit. Partner also completed treatment. Haley Navarro MD [facility] 05-11-2024 Miscellaneous Notes Formattin g of this note might be different from the original. KJ - VB No. LOF No. CTXS No. Movement: absent. Other c/o: No. Medication list reviewed. Physical Exam See Flow Sheet Gen: no accute distress, well appearing Abd: soft, nontender, gravid A/P 16w1d Estimated Date of Delivery: 10/25/24 Anatomy US ordered NIPT today Chlamydia - patient took medication about 2 weeks ago. Needs GERARD next visit. Partner also completed treatment. Haley Navarro MD documented in this encounter [facility] 05-11-2024 Instructions Arlyn Prieto MA - 05/11/2024 9:46 AM EST SEQUENTIAL SCREENINGS The [facility] offers sequential screenings for women who are interested in screenings for chromosomal abnormalities and certain defects during a . The sequential screen combines ultrasound and blood tests to determine the risk of chromosomal abnormalities, including Down's Syndrome (Trisomy 21) and Trisomy 18, as well as open neural tube defects including spina bifida. Ultrasound examination is performed between 11 weeks and 13 weeks gestational age. Blood tests are drawn after the ultrasound and again later in the between 15 and 21 weeks gestational age. Please let your physician know if you are interested in this testing. It will require an appointment with our mail technician. This is not an ultrasound performed by a physician in our office during a routine visit. SIGNS AND SYMPTOMS OF LABOR 1. Contractions every 10 minutes or more often 2. Clear, pink, or brownish fluid (water) leaking from vagina 3. Feeling that baby is pushing down, pressure 4. Low, dull backache 5. Cramps that feel like a period 6. Cramps with or without diarrhea If you notice any of the above symptoms, contact our office at [phone] and ask to speak with a nurse. After hours, you can call doctors registry at [phone] OR call [facility] at [phone] and ask to have the doctor ux consultant paged. If you consider this an emergency, dial 9-1- or go to your nearest emergency department. NEED HELP? Are you dealing with a violent or abusive relationship? Are you a victim of rape or sexual assult? Call [facility] ([place]) 24 hour Crisis Hotline: 462.119.8489 or 404-957-9519. MANUAL Your Guide to a Healthy manual is now on-line. Visit [email or web address] to download your free copy documented in this encounter [facility] 04-06-2024 Telephone encount er Note Patient notified. Abiola Early RN The following approved medication requests have been transmitted electronically. Requested Prescriptions Signed Prescriptions Disp Refills azithromycin (ZITHROMAX) 500 mg tablet 2 tablet 0 Sig: Take 2 tablets by mouth one time only for 1 dose. Authorizing Provider: COREEN PURI doxycycline monohydrate (MONODOX) 100 mg capsule 14 capsule 0 Sig: Take 1 capsule by mouth two times a day for 7 days. Authorizing Provider: COREEN PURI Pharmacy Information Pharmacy Address Telephone [facility] [phone] [place] [address] [facility] 04-06-2024 Miscellaneous Notes Formattin g of this note is different from the original. Patient notified. Abiola Early RN The following approved medication requests have been transmitted electronically. Requested Prescriptions Signed Prescriptions Disp Refills azithromycin (ZITHROMAX) 500 mg tablet 2 tablet 0 Sig: Take 2 tablets by mouth one time only for 1 dose. Authorizing Provider: COREEN PURI doxycycline monohydrate (MONODOX) 100 mg capsule 14 capsule 0 Sig: Take 1 capsule by mouth two times a day for 7 days. Authorizing Provider: COREEN PURI Pharmacy Information Pharmacy Address Telephone [facility] [phone] [place] [address] Rx sent Coreen Puri APRN.SPEEDY Patient notified. She is requesting expedited partner treatment. Orders pending. She is aware is medication will be different with longer course. Advised no intercourse until after he has completed rx for at least 7 days too. Please file orders. Patient requesting call back once completed. Abiola Early RN Left message to call office. Health department form filled out and faxed. Ratna Anderson RN +chlamydia, Rx sent. Coreen Puri APRN.CNP documented in this encounter [facility] 04-06-2024 Telephone encount er Note Rx sent Coreen Puri APRN.CNP [facility] 04-06-2024 Telephone encount er Note Patient notified. She is requesting expedited partner treatment. Orders pending. She is aware is medication will be different with longer course. Advised no intercourse until after he has completed rx for at least 7 days too. Please file orders. Patient requesting call back once completed. Abiola Early RN [facility] 04-06-2024 Instructions Abiola Early RN - 04/06/2024 4:25 PM EST EPT Chlamydia: Guide for Partners who Receive Doxycycline Why am I getting this prescription or medication? One of your sexual partners have been diagnosed with chlamydia. This is a sexually transmitted infection (STI) that spreads during oral, vaginal, or anal sex. You will also need to be treated for this infection to prevent any complications and transmitting the infection to others. What is chlamydia? Chlamydia is a STI. Although some patients with chlamydia experience symptoms, many do not have any signs or symptoms. Symptoms of chlamydia can include: pain or burning when you pee, fluid/discharge from the vagina, penis, or rectum that smells or looks strange, pain with sex, or pain/swelling in a testicle. You can give chlamydia to others you have sex with; so, it is important to get treatment. Untreated chlamydia can lead to problems such as infertility, infection of the testicles, and pelvic inflammatory disease. It is important to complete the entire treatment for this infection. What is the treatment for chlamydia? The prescription you are given today is for an oral antibiotic called doxycycline. Do NOT take this antibiotic if you have a severe allergy to other doxycycline or other tetracycline antibiotics. This antibiotic should be taken with a full glass of water and you should sit up for at least 30 minutes. Side effects can include nausea, vomiting, abdominal pain, and/or diarrhea. If you have an upset stomach, try to take the medication with food. If you experience any symptoms of an allergic reaction such as trouble breathing, chest tightness, closing of the throat, swelling of the lips or tongue, and itchy bumps on your skin, seek medical attention right away. What else should I do? Do not have sex for at least 7 days after you AND your sexual partner have been treated. See a healthcare provider for additional testing for other STIs, including HIV and syphilis. It is important to be tested for other STIs because this medication will only treat chlamydia. Using condoms correctly and consistently during sex is the best way to prevent other STIs. documented in this encounter [facility] 04-06-2024 Telephone encount er Note Left message to call office. Health department form filled out and faxed. Ratna Anderson RN [facility] 04-06-2024 Telephone encount er Note +chlamydia, Rx sent. Coreen Puri APRN.CNP [facility] 04-04-2024 Instructions Tesha Millard LPN - 04/04/2024 8:14 AM EST Please select the following link to access the [facility] Your Guide to a Healthy . [email or web address] conchis documented in this encounter [facility] 04-04-2024 Note HNO ID: [id number] Author: COREEN PURI APRN.CNP Service: ? Author Type: Nurse Practitioner Type: Progress Notes Filed: 04/04/2024 09:40 Note Text: Patient declined core winder. INITIAL OB ASSESSMENT HPI: Fatoumata is a 18 year old White here to establish Obstetrical Care. Patient's last menstrual period was 01/19/2024 (exact date). from OB Dating Form. was unplanned but accepted Complaints: No OB History T0 L0 SAB0 IAB0 Ectopic0 Multiple0 Live Births0 Previous history: Prior : never History of 4th degree laceration: No History of shoulder dystocia: No History of Hypertensive disorders including pre-eclampsia or gestational hypertension: No History of gestational diabetes: No Patient's Risk Screening for delivery: Have you had a prior noble between 20w and 36w6d? No How many pregnancies have you had before? 0 Did you have a previous baby with a GBS Infection? No Please select all that apply for any prior : N/A MEDICAL/PSYCHOSOCIAL HISTORY: History of hemorrhage or bleeding concerns: No Thyroid Disease: No History of chronic hypertension: No History of pre-existing diabetes: No No results found for: ABORHD BMI 89.38 kg/(m2) Last Pap: History of abnormal pap: No Prior treatment for cervical dysplasia: none. Last HPV: History of STDs: None Partner History of STDs: None Did you have a partner with Herpes? No Tobacco use: No E-Cigarette/Vaping Use: No Caffeine use: No Drug use: No Alcohol use: No Multivitamin with Folic acid: Yes Would refuse blood transfusion if medically necessary: No Social Needs: How often does this describe you? I don't have enough money to pay my bills: Sometimes Within the past 12 months, have you worried that your food would run out before you had money to buy more? Never In the past 12 months, has lack of reliable transportation kept you from going to medical appointments or work, or from getting things needed for daily living? Never In the past 12 months, have you had any concerns about having a place to live, or about the condition or quality of your housing? Never Would you like more information on any of the following (please check all that apply)? Not interested Social History: Do you have any history of depression, anxiety, PTSD, or other mood problems? No Do you have a history of abuse or trauma that may impact your experience? 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 OB Depression and Anxiety Screening- This Encounter (since 04/03/2024) Over the past 2 weeks have you felt down, depressed, or hopeless? Negative Over the past two weeks, have you felt little interest or pleasure in doing things?? Negative Feeling nervous, anxious or on edge 0-Not at all Not being able to stop or control worrying 0-Not al all Anxiety Pre-Screening Total (If >/= 3 additional questions will be reviewed) 0 Genetic Screening: Partner present: Yes Patient verbalized knowledge of partner family health history: Yes Do you or your partner have any personal or family history of defects not previously discussed: Yes, FOB brother of heart issue Do you have history of a complicated by anomaly, genetic condition, or demise: No Preeclampsia Risk Screening: Screening for prevention of preeclampsia: High risk factors: None Moderate risk ractors: Nulliparity OB Risk Screening: Completed, positive findings include: Patient answered 'Yes' to previous baby with a GBS Infection Marital Status:Single Partner: Name: Radhames Leary Age: 23 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 No pertinent past medical history. PAST SURGICAL HISTORY Procedure Laterality Date APPENDECTOMY age 7 pt reported Current Outpatient Medications Medication Sig Dispense Refill vit,mamta 74/iron/folic ( VITAMIN 1+1 ORAL) Take by mouth once daily. Desogestrel-Ethinyl Estradiol (APRI) 0.15-0.03 mg per tablet Take 1 tablet by mouth once daily. 3 Package 1 Pediatric Multivitamins-Fl (MULTIVITAMINS WITH FLUORIDE) 0.25 mg ORAL Chew 1 tablet once a day po (Patient not taking: No sig reported) 100 3 No current facility-administered medications for this visit. Allergies As of Date: 04/04/2024 (No Known Allergies) Fully Assessed 04/04/2024 Does patient have penicillin allergy: No REVIEW OF SYSTEMS: GENERAL: Negative for: Fever or Chills HEENT: Negative for: Headache, Impaired Vision, Ringing in Ears, Nosebleeds NECK: Negative for: Swelling, Pain, Stiffness RESPIRATORY: Negative for: Cough, Shortness of breath, Wheezing GASTROINTESTINAL: Negative for: Heartburn, Constipation, Diarrhea, Blood in stool, Vomiting MUSCULOSKELETAL: Negative for: Muscle or joint pain, stiffness, Joint swelling (more content not included)... [place] 04-04-2024 History of Presen t illness Narrative Patient declined core winder. INITIAL OB ASSESSMENT HPI: Fatoumata is a 18 year old White here to establish Obstetrical Care. Patient's last menstrual period was 01/19/2024 (exact date). from OB Dating Form. was unplanned but accepted Complaints: No OB History T0 L0 SAB0 IAB0 Ectopic0 Multiple0 Live Births0 Previous history: Prior : never History of 4th degree laceration: No History of shoulder dystocia: No History of Hypertensive disorders including pre-eclampsia or gestational hypertension: No History of gestational diabetes: No Patient's Risk Screening for delivery: Have you had a prior noble between 20w and 36w6d? No How many pregnancies have you had before? 0 Did you have a previous baby with a GBS Infection? No Please select all that apply for any prior : N/A MEDICAL/PSYCHOSOCIAL HISTORY: History of hemorrhage or bleeding concerns: No Thyroid Disease: No History of chronic hypertension: No History of pre-existing diabetes: No No results found for: ABORHD BMI 89.38 kg/(m^2) Last Pap: History of abnormal pap: No Prior treatment for cervical dysplasia: none. Last HPV: History of STDs: None Partner History of STDs: None Did you have a partner with Herpes? No Tobacco use: No E-Cigarette/Vaping Use: No Caffeine use: No Drug use: No Alcohol use: No Multivitamin with Folic acid: Yes Would refuse blood transfusion if medically necessary: No Social Needs: How often does this describe you? I don't have enough money to pay my bills: Sometimes Within the past 12 months, have you worried that your food would run out before you had money to buy more? Never In the past 12 months, has lack of reliable transportation kept you from going to medical appointments or work, or from getting things needed for daily living? Never In the past 12 months, have you had any concerns about having a place to live, or about the condition or quality of your housing? Never Would you like more information on any of the following (please check all that apply)? Not interested Social History: Do you have any history of depression, anxiety, PTSD, or other mood problems? No Do you have a history of abuse or trauma that may impact your experience? 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 OB Depression and Anxiety Screening- This Encounter (since 04/03/2024) Over the past 2 weeks have you felt down, depressed, or hopeless? Negative Over the past two weeks, have you felt little interest or pleasure in doing things? Negative Feeling nervous, anxious or on edge 0-Not at all Not being able to stop or control worrying 0-Not al all Anxiety Pre-Screening Total (If >/= 3 additional questions will be reviewed) 0 Genetic Screening: Partner present: Yes Patient verbalized knowledge of partner family health history: Yes Do you or your partner have any personal or family history of defects not previously discussed: Yes, FOB brother of heart issue Do you have history of a complicated by anomaly, genetic condition, or demise: No Preeclampsia Risk Screening: Screening for prevention of preeclampsia: High risk factors: None Moderate risk ractors: Nulliparity OB Risk Screening: Completed, positive findings include: Patient answered 'Yes' to previous baby with a GBS Infection Marital Status:Single Partner: Name: Radhames Leary Age: 23 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 No pertinent past medical history. PAST SURGICAL HISTORY Procedure Laterality Date APPENDECTOMY age 7 pt reported Current Outpatient Medications Medication Sig Dispense Refill vit,mamta 74/iron/folic ( VITAMIN 1+1 ORAL) Take by mouth once daily. Desogestrel-Ethinyl Estradiol (APRI) 0.15-0.03 mg per tablet Take 1 tablet by mouth once daily. 3 Package 1 Pediatric Multivitamins-Fl (MULTIVITAMINS WITH FLUORIDE) 0.25 mg ORAL Chew 1 tablet once a day po (Patient not taking: No sig reported) 100 3 No current facility-administered medications for this visit. Allergies As of Date: 04/04/2024 (No Known Allergies) Fully Assessed 04/04/2024 Does patient have penicillin allergy: No REVIEW OF SYSTEMS: GENERAL: Negative for: Fever or Chills HEENT: Negative for: Headache, Impaired Vision, Ringing in Ears, Nosebleeds NECK: Negative for: Swelling, Pain, Stiffness RESPIRATORY: Negative for: Cough, Shortness of breath, Wheezing GASTROINTESTINAL: Negative for: Heartburn, Constipation, Diarrhea, Blood in stool, Vomiting MUSCULOSKELETAL: Negative for: Muscle or joint pain, stiffness, Joint swelling NEUROLOGIC/PSYCHIATRIC: Negative for: Weakness, Paralysis, Numbness, Tingling, Tremor, Anxiety, Depression, Memory loss SKIN: Negative for: Rash, Itching GENITOURINARY: Negative for: vaginal itching, vaginal discharge, hematuria or dysuria SENSITIVE EXAM: The sensitive examination was discussed with the Patient or Patient's Authorized Cloth Trimmer Hand. As applicable, any other physician, advance practice provider, medical student, or other health professional student that will be observing or involved in the sensitive examination for educational or training purposes was discussed with the Patient or Authorized Cloth Trimmer Hand. The Patient or Authorized Cloth Trimmer Hand has agreed to proceed with the sensitive examination. (Sensitive examination includes inspection and/or palpation of the breasts, pelvis, prostate and anorectal regions). PHYSICAL EXAM: BP 114/60 Wt 144 lb 12.8 oz (65.7kg) LMP 01/19/2024 GENERAL: pleasant in no apparent distress DERMATOLOGY: Normal, without lesions, non-icteric, and non-hirsute NECK: Supple, full range of motion, no adenopathy, and thyroid normal CHEST: Normal inspiratory effort BREAST: soft, non-tender, symmetric, no dominant mass, normal nipple-areolar complex, no lymphadenopathy, and no nipple discharge ABDOMEN: soft, non-tender, and no masses NEURO: alert and oriented x3,exam grossly non-focal PELVIS: External genitalia normal without lesions. Perineal body intact. No vaginal or cervical lesions. Scant bleeding with exam. Cervix closed. No adnexal masses or tenderness. Clinical Pelvimetry: Pelvimetry clinically assessed as adequate Limited OB ultrasound exam: single intrauterine , positive cardiac activity, and POCUS performed. +cardiac activity, CRL consistent with LMP. Coreen Puri, CONTOUR PATH TAPE MILL OPERATOR.MASTER SCHEDULER ASSESSMENT: 18 year old at 10w6d wks gestational age PLAN: 1) Patient oriented to practice. Patient given new OB orientation folder. Discussed nutrition, folic acid supplementation, dietary guidelines, exercise, smoking, alcohol, caffeine, and drug use. Discussed gestational weight gain guidelines. Discussed routine OB labs including STD/HIV. Discussed how to access Your guide to a health and the Acidity Tester. Reviewed midwifery and small engine specialist services that are available. 2) Screening: Hemoglobin A1C: ordered Baby Aspirin: The patient has been counseled about the potential benefits of low dose aspirin in and our recommendation that this be offered to all patients, regardless of whether they meet the high risk criteria specified above. She Accepts Aneuploidy Screening: Discussed aneuploidy screening, nuchal translucency/first trimester early anatomy ultrasound and NIPT. The risks/benefits and limitations of NIPT/aneuploidy screening were reviewed including the potential for false negative and false positive results. The availability of genetic counseling was reviewed. Information on aneuploidy screening was provided. The patient chooses to proceed with First trimester early anatomy ultrasound (12-13w6d) Myriad Carrier Screening: Discussed myriad carrier screening. We discussed the availability of professional-society guided carrier screening and reviewed the conditions screened and limitations of screening. The availability of genetic counseling was reviewed. Information on carrier screening was provided. The patient Declines 3) Patient offered option of Virtual Visits. Patient unsure. May consider in future. 4) teen Follow up in 3 weeks or sooner prn. Coreen Puri APRN.SPEEDY documented in this encounter [facility] 08-12-2022 Discharge summary Note Date/Time August 12, 2022 9:31p m [facility] Medical Records Department [address] [place] [address] Emergency Department Summary 08/12/22 MR#: [id number] Acct: [id number] Name: FATOUMATA CLARK Rep #:[id number] : 2005 16 From: Oseas Francisco MD PCP: Oseas Alvarez Status:PRE ER Location: ED HPI History of Present Illness Chief Complaint: Rash Narrative Narrative: Patient presents with a rash on her abdomen and arms. She went hiking 4 days ago. No mucosal involvement PFSH PFSH Home Medications cephalexin 500 mg capsule 500 mg PO Q12 #14 CAPSULES 07/22/20 [Rx Last Taken Unknown] Allergy/AdvReac Type Severity Reaction Status Date / Time No Known Allergies Allergy Verified 08/12/22 21:15 Surgical History History of appendectomy Social History Smoking Status: Never smoker ROS ROS ED ROS Narrative Past medical history: Reviewed Medications: Reviewed Social history: Noncontributory Review of systems: All systems negative except as indicated General: No fever ENT: No mucosal involvement Cardiovascular: No chest pain Respiratory: No shortness of breath or cough Musculoskeletal: Denies myalgias no difficulty with ambulation Skin: As in HPI EXAM Physical Exam Narrative Exam Narrative: Physical exam General: Well nourished, Well developed, No Acute Distress Head: Normocephalic, Atraumatic Eyes: No eye involvement ENT: Moist mucous membranes. No mucosal involvement Neck: Supple, Nontender, No lymphadenopathy Cardiovascular: Regular rate, Regular rhythm Respiratory: No distress, CTA bilaterally Abdomen: Soft, Nontender, Nondistended Back: Nontender, Normal Inspection. Negative for: CVA tenderness Extremities: See below Skin: Linear streaks on the abdomen and legs consistent with contact dermatitis from poison hayde Const Vital Signs: 08/12/22 21:11 Temperature 97.9 F Temperature Source Temporal Pulse Rate 86 Respiratory Rate 15 Blood Pressure 113/54 L Blood Pressure Mean 73 Pulse Ox 99 Oxygen Delivery Method Room Air MDM MDM MDM Narrative Medical decision making narrative: I talked to mom and also giving some of the history. I talked to the patient. At this time signs and symptoms are consistent with poison hayde. There is no mucosal involvement. We will treat with Kenalog IM and discharge. She can use calamine lotion as needed. Discharge Plan Triage Chief Complaint: Rash ED Provider: Oseas Francisco Dx/Rx/DC Orders Clinical Impression: Poison hayde, Contact dermatitis Instructions: ED Poison Hayde Rash Prescriptions: No Action cephalexin [cephalexin] 500 MG capsule 500 mg PO Q12 Qty: 14 0RF Primary Care Provider: Oseas Alvarez Referrals: Oseas Alvarez [Primary Care Provider] - 3-5 Days Disposition Disposition: Home, Self Care What to do if you have Problems For any increased pain, shortness of breath, bleeding, nausea or vomiting, chestpain, or any unexpected problems, contact your Primary Care Provider. Call [facility] ([phone]) or report to the closest Emergency Room. Call 911 if necessary. 08/12/222130 <Electronically signed by Oseas Francisco MD> Cosigner Signature (if applicable): CC: Oseas Alvarez ~ Signed [facility] Work Phone: Evaluation noteNo assessment information available [facility] Work Phone: Evaluation note* Diagnosis Uncertain dates, antepartum, unspecified trimester- Primary 10 weeks gestation of state, incidental Supervision of normal first teen in first trimester [facility]* Diagnosis Chlamydia infection- Primary Unspecified chlamydial infection, in conditions classified elsewhere and of unspecified site documented in this encounter [facility] note* Diagnosis Encounter for supervision of normal first in second trimester- Primary Supervision of normal first 16 weeks gestation of state, incidental [facility]* Diagnosis Encounter for anatomic survey (HCC)- Primary Encounter for anatomic survey Encounter for supervision of normal first in second trimester (HCC) Supervision of normal first 16 weeks gestation of (HCC) state, incidental [facility]* Diagnosis Screening for diabetes mellitus- Primary 23 weeks gestation of ([facility]) state, incidental Encounter for supervision of normal first in second trimester ([facility]) Supervision of normal first [facility] Diagnosis Encounter for supervision of normal first in second trimester (HCC)- Primary Supervision of normal first 27 weeks gestation of ([facility]) state, incidental [facility]* Diagnosis 29 weeks gestation of (HCC)- Primary state, incidental Encounter for supervision of normal first in third trimester (HCC) Supervision of normal first [facility]* Diagnosis Encounter for supervision of normal first in third trimester (HCC)- Primary Supervision of normal first Chlamydia infection Unspecified chlamydial infection, in conditions classified elsewhere and of unspecified site 32 weeks gestation of ([facility]) state, incidental Excessive weight gain in , third trimester ([facility]) * Assessment & Plan Note - Haley Navarro MD - 09/05/2024 11:18 AM EDTAssociated Problem(s): Chlamydia infection Repeat at 36 weeks documented in this encounter [facility] note* Diagnosis Encounter for supervision of normal first in third trimester ([facility])- Primary Supervision of normal first Chlamydia infection Unspecified chlamydial infection, in conditions classified elsewhere and of unspecified site 32 weeks gestation of ([facility]) state, incidental Excessive weight gain in , third trimester ([facility]) 34 weeks gestation of ([facility])- Primary state, incidental Encounter for supervision of normal first in third trimester ([facility]) Supervision of normal first documented in this encounter [facility] note* Diagnosis Encounter for supervision of normal first in third trimester ([facility])- Primary Supervision of normal first Chlamydia infection Unspecified chlamydial infection, in conditions classified elsewhere and of unspecified site 32 weeks gestation of ([facility]) state, incidental Excessive weight gain in , third trimester ([facility]) Encounter for ultrasound to check growth ([facility])- Primary Encounter for routine screening for malformation using ultrasonics Excessive weight gain in , third trimester ([facility]) 34 weeks gestation of ([facility]) state, incidental Polyhydramnios in third trimester complication, single or unspecified fetus ([facility]) 34 weeks gestation of ([facility])- Primary state, incidental Encounter for supervision of normal first in third trimester ([facility]) Supervision of normal first documented in this encounter [facility] note* Diagnosis Encounter for supervision of normal first in third trimester ([facility])- Primary Supervision of normal first Chlamydia infection Unspecified chlamydial infection, in conditions classified elsewhere and of unspecified site 32 weeks gestation of ([facility]) state, incidental Excessive weight gain in , third trimester ([facility]) Polyhydramnios in third trimester complication, single or unspecified fetus ([facility])- Primary Encounter for supervision of normal first in third trimester ([facility]) Supervision of normal first Excessive weight gain in , third trimester ([facility]) 36 weeks gestation of ([facility]) state, incidental * Assessment & Plan Note - Haley Navarro MD - 10/03/2024 2:12 PM EDTAssociated Problem(s): Polyhydramnios in third trimester ([facility]) Orders: URINE OB DIP B/O ROUTINE, GROUP B STREPTOCOCCUS BY PCR GONORRHEA/CHLAMYDIA NAAT documented in this encounter [facility] note* Diagnosis Encounter for supervision of normal first in third trimester ([facility])- Primary Supervision of normal first Chlamydia infection Unspecified chlamydial infection, in conditions classified elsewhere and of unspecified site 32 weeks gestation of (HCC) state, incidental Excessive weight gain in , third trimester ([facility]) Polyhydramnios in third trimester complication, single or unspecified fetus (HCC)- Primary Encounter for supervision of normal first in third trimester ([facility]) Supervision of normal first Excessive weight gain in , third trimester (HCC) 36 weeks gestation of ([facility]) state, incidental Encounter for ultrasound to check growth ([facility])- Primary Encounter for routine screening for malformation using ultrasonics Polyhydramnios in third trimester complication, single or unspecified fetus ([facility]) Obesity affecting in second trimester, unspecified obesity type ([facility]) 37 weeks gestation of ([facility]) state, incidental Supervision of normal first teen in first trimester ([facility])- Primary Polyhydramnios in third trimester complication, single or unspecified fetus (HCC) 37 weeks gestation of ([facility]) state, incidental documented in this encounter [facility] note* Diagnosis Encounter for supervision of normal first in third trimester ([facility])- Primary Supervision of normal first Chlamydia infection Unspecified chlamydial infection, in conditions classified elsewhere and of unspecified site 32 weeks gestation of ([facility]) state, incidental Excessive weight gain in , third trimester ([facility]) Polyhydramnios in third trimester complication, single or unspecified fetus ([facility])- Primary Encounter for supervision of normal first in third trimester ([facility]) Supervision of normal first Excessive weight gain in , third trimester (HCC) 36 weeks gestation of ([facility]) state, incidental Supervision of normal first teen in first trimester ([facility])- Primary Polyhydramnios in third trimester complication, single or unspecified fetus (HCC) 37 weeks gestation of ([facility]) state, incidental * Assessment & Plan Note - Charley Medrano MD - 10/10/2024 4:39 PM EDT Associated Problem(s): Supervision of normal first teen in first trimester ([facility]) Orders: URINE OB DIP B/O * Assessment & Plan Note - Charley Medrano MD - 10/10/2024 4:39 PM EDT Associated Problem(s): Polyhydramnios in third trimester (HCC) mild. AGA w/ MVP 7.6 cm. Orders: URINE OB DIP B/O [facility] Additional Instructions If you develop any chest pain with inspiration shortness of breath or have any further concerns please return to the ER for repeat [facility] Work Phone: Hospital Discharge instructions Additional Instructions return to hospital or call the office if any further bright red bleeding. No intercourse till cleared after next visit.[facility] Work Phone: Reason for referral (narrative)* Diagnostic Procedure Only (Routine) - New Request Specialty Diagnoses / Procedures Referred By Ching johnson Referred To Contact [facility] Diagnoses 10 weeks gestation of Procedures OBSTETRIC ULTRASOUND WHI US PREG UTERUS AFTER 1ST TRIMEST 1 GESTATION Coreen Puri APRN.CNP [address] [place] [address] [facility] [address] [place] [address] Referral ID Status Reason Start Date Expiration Date Visits Requested Visits Authorized [id number] New Request Auto-Generat ed Referral 04/04/2024 04/04/2025 1 [facility]No reason for referral information availableWOhioHealth [facility] Work Phone: Chief Complaint and Reason for Visit Chief Complaint RASH Chief Complaint COLD SX Chief Complaint Admit Date VAG BLEED PREG May 07, 2024 10:09pm ROLLOUT BLEEDING August 31, 2024 1:15 pm Advance Directives Advance Directive Response Recorded Date/ Time Living Will No December 29 10:16pm Power of Engagement Quality Consultant No December 29, 2022 10:16pm Advance Directive Response Recorded Date/ Time Living Will No May 07 11:24pm Do you have a Healthcare Power of Engagement Quality Consultant? No May 07, 2024 11:24pm Summary Purpose Family History No Family History Records FoundNo Family History Records Found Additional Source Comments Care Teams (unrecognized sec tion and content) Team Status: Active Member Role Status Dates Dr. Oseas Alvarez MD Family Provider Active Dr. Oseas Alvarez MD Primary Care Provider Active Team Status: Inactive Member Role Status Dates Dr. Oseas Francisco MD Emergency Provider Active Dr. Oseas Alvarez MD Primary Care Provider Active Team Status: Inactive Member Role Status Dates Dr. Oseas Alvarez MD Primary Care Provider Active Dr. Mauricio Siddiqui DO Emergency Provider Active Team Status: Active Member Role Status Dates Dr. Oseas Alvarez MD Primary Care Provider Active Team Status: Inactive Member Role Status Dates Dr. Oseas Alvarez MD Primary Care Provider Active Start: May 07, 2024 End: May 08, 2024 Dr. Joseph Zaragoza DO Attending Provider Active Start: May 07, 2024 End: May 08, 2024 Dr. Joseph Zaragoza DO Emergency Provider Active Start: May 07, 2024 End: May 08, 2024 Dr. Charley Medrano MD Other Provider Active S tart: May 07, 2024 End: May 08, 2024 Team Status: Inactive Member Role Status Dates Dr. Oseas Alvarez MD Primary Care Provider Active Start: August 31, 2024 End: August 31, 2024 Kaycee Pittman CNM Attending Provider Active Start: August 31, 2024 End: August 31, 2024 Kaycee Pittman CNM Referring Provider Active Start: August 31, 2024 End: August 31, 2024 Goals (unrecognized section and content) Goals may be documented in a n alternate sectionGoals may be documented in an alternate sectionGoals may be documented in an alternate section Source Comments (unrecognize d section and content) In the event this informatio n is protected by the Federal Confidentiality of Alcohol and Drug Abuse Patient Records regulations: The Federal rules restrict any use of the information to criminally investigate or prosecute any alcohol or drug abuse patient.[facility] the event this information is protected by the Federal Confidentiality of Alcohol and Drug Abuse Patient Records regulations: The Federal rules restrict any use of the information to criminally investigate or prosecute any alcohol or drug abuse patient.[facility] the event this information is protected by the Federal Confidentiality of Alcohol and Drug Abuse Patient Records regulations: The Federal rules restrict any use of the information to criminally investigate or prosecute any alcohol or drug abuse patient.[facility] the event this information is protected by the Federal Confidentiality of Alcohol and Drug Abuse Patient Records regulations: The Federal rules restrict any use of the information to criminally investigate or prosecute any alcohol or drug abuse patient.[facility] the event this information is protected by the Federal Confidentiality of Alcohol and Drug Abuse Patient Records regulations: The Federal rules restrict any use of the information to criminally investigate or prosecute any alcohol or drug abuse patient.[facility] the event this information is protected by the Federal Confidentiality of Alcohol and Drug Abuse Patient Records regulations: The Federal rules restrict any use of the information to criminally investigate or prosecute any alcohol or drug abuse patient.[facility] the event this information is protected by the Federal Confidentiality of Alcohol and Drug Abuse Patient Records regulations: The Federal rules restrict any use of the information to criminally investigate or prosecute any alcohol or drug abuse patient.[facility] Center[facility] the event this information is protected by the Federal Confidentiality of Alcohol and Drug Abuse Patient Records regulations: The Federal rules restrict any use of the information to criminally investigate or prosecute any alcohol or drug abuse patient.[facility] Center[facility] the event this information is protected by the Federal Confidentiality of Alcohol and Drug Abuse Patient Records regulations: The Federal rules restrict any use of the information to criminally investigate or prosecute any alcohol or drug abuse patient.[facility] Center[facility] the event this information is protected by the Federal Confidentiality of Alcohol and Drug Abuse Patient Records regulations: The Federal rules restrict any use of the information to criminally investigate or prosecute any alcohol or drug abuse patient.[facility] CenterIn the event this information is protected by the Federal Confidentiality of Alcohol and Drug Abuse Patient Records regulations: The Federal rules restrict any use of the information to criminally investigate or prosecute any alcohol or drug abuse patient.[facility] Center[facility] the event this information is protected by the Federal Confidentiality of Alcohol and Drug Abuse Patient Records regulations: The Federal rules restrict any use of the information to criminally investigate or prosecute any alcohol or drug abuse patient.[facility] Center[facility] the event this information is protected by the Federal Confidentiality of Alcohol and Drug Abuse Patient Records regulations: The Federal rules restrict any use of the information to criminally investigate or prosecute any alcohol or drug abuse patient.[facility] Center[facility] the event this information is protected by the Federal Confidentiality of Alcohol and Drug Abuse Patient Records regulations: The Federal rules restrict any use of the information to criminally investigate or prosecute any alcohol or drug abuse patient.[facility] Center[facility] the event this information is protected by the Federal Confidentiality of Alcohol and Drug Abuse Patient Records regulations: The Federal rules restrict any use of the information to criminally investigate or prosecute any alcohol or drug abuse patient.[facility] Center[facility] the event this information is protected by the Federal Confidentiality of Alcohol and Drug Abuse Patient Records regulations: The Federal rules restrict any use of the information to criminally investigate or prosecute any alcohol or drug abuse patient.[facility] CenterIn the event this information is protected by the Federal Confidentiality of Alcohol and Drug Abuse Patient Records regulations: The Federal rules restrict any use of the information to criminally investigate or prosecute any alcohol or drug abuse patient.[facility] Center[facility] the event this information is protected by the Federal Confidentiality of Alcohol and Drug Abuse Patient Records regulations: The Federal rules restrict any use of the information to criminally investigate or prosecute any alcohol or drug abuse patient.[facility] CenterIn the event this information is protected by the Federal Confidentiality of Alcohol and Drug Abuse Patient Records regulations: The Federal rules restrict any use of the information to criminally investigate or prosecute any alcohol or drug abuse patient.[facility] CenterIn the event this information is protected by the Federal Confidentiality of Alcohol and Drug Abuse Patient Records regulations: The Federal rules restrict any use of the information to criminally investigate or prosecute any alcohol or drug abuse patient.[facility] Reason for Visit (unrecogniz ed section and content) Specialty Diagnoses / Procedures Referred By Contac t Referred To Contact Diagnoses Procedures OFFICE VISIT, NEW PT., LEVEL 5 TC [facility] [address] [place] [address] [place] [address] Referral ID Status Reason Start Date Expiration Date Visits Requested Visits Authorized [id number] Authorized Patient Cleared - Qualified 100% FAS 03/17/2024 06/15/2024 99 99 Reason Comments Results STD Reason Onset Date Comments Care 05/11/2024 Specialty Diagnoses / Procedures Referred By Contac t Referred To Contact Diagnoses Procedures OFFICE VISIT, NEW PT., LEVEL 5 TC [facility] [address] [place] [address] Phone: tel: [place] [address] Referral ID Status Reason Start Date Expiration Date V isits Requested Visits Authorized [id number] Closed Patient Cleared - Qualified 100% FAS 03/17/2024 06/15/2024 99 99 Reason Comments US Specialty Diagnoses / Procedures Referred By Contac t Referred To Contact [facility] Diagnoses Encounter for supervision of normal first in second trimester (HCC) 16 weeks gestation of (HCC) Procedures OBSTETRIC ULTRASOUND WHI US PREG UTERUS AFTER 1ST TRIMEST GESTATION Haley Navarro MD [address] [place] [address] Phone: tel: fax: [facility] [address] [place] [address] Referral ID Status Reason Start Date Expiration Date V isits Requested Visits Authorized [id number] Closed Auto-Generate d Referral 05/11/2024 05/11/2025 1 1 Reason Onset Date Comments Care 07/04/2024 Reason Onset Date Comments Care 07/27/2024 Reason Onset Date Comments Care 08/15/2024 Reason Onset Date Comments Care 09/05/2024 Reason Onset Date Comments Care 09/19/2024 Specialty Diagnoses / Procedures Referred By Contac t Referred To Contact [facility] Diagnoses 10 weeks gestation of (HCC) Procedures OBSTETRIC ULTRASOUND WHI US PREG UTERUS AFTER 1ST TRIMEST GESTATION ShuqualakCoreen ott APRN.MASTER SCHEDULER [address] [place] [address] Phone: tel: fax:[phone] [address] Referral ID Status Reason Start Date Expiration Date Visits Requested Visits Authorized [id number] Authorized Auto-Generat ed Referral 09/19/2024 03/14/2025 20 20 Specialty Diagnoses / Procedures Referred By Contac t Referred To Contact [facility] Diagnoses 32 weeks gestation of (HCC) Excessive weight gain in , third trimester (HCC) Procedures OBSTETRIC ULTRASOUND WHI US PREG UTERUS AFTER 1ST TRIMEST GESTATION Haley Navarro MD [address] [place] [address] Phone: tel: fax:[phone] [address] Referral ID Status Reason Start Date Expiration Date Visits Requested Visits Authorized [id number] Authorized Auto-Generat ed Referral 09/05/2024 03/14/2025 20 20 Reason Comments Appointment Reason Onset Date Comments Care 10/03/2024 Specialty Diagnoses / Procedures Referred By Contac t Referred To Contact [facility] Diagnoses Polyhydramnios in third trimester complication, single or unspecified fetus (HCC) Encounter for supervision of normal , unspecified, unspecified trimester (HCC) Procedures OBSTETRIC ULTRASOUND WHI US PREG UTERUS AFTER 1ST TRIMEST GESTATION Haley Navarro MD [address] [place] [address] Phone: tel: fax:[phone] [address] Referral ID Status Reason Start Date Expiration Date Visits Requested Visits Authorized [id number] Authorized Auto-Generat ed Referral 10/03/2024 03/14/2025 20 20 Reason Onset Date Comments Care 10/10/2024 Reason Onset Date Comments Population Health Navigation Outreach 10/11/2024 Ob/peds INFORMATION SOURCE (unrecogn ized section and content) DATE CREATED AUTHOR 09/08/2024 [facility] DATE CREATED AUTHOR AUTHOR'S BERNIE FRASER 10/05/2024 [place] FOR RECORDS PERTAINING TO PATIENTS WHO ARE OR HAVE BEEN ENROLLED IN A CHEMICAL DEPENDENCY/SUBSTANCEABUSE PROGRAM, SOME INFORMATION MAY BE OMITTED. This clinical summary was aggregated from multiple sources. Caution should be exercised in using it in the provision of clinical care. This summary normalizes information from multiple sources, and as a consequence, information in this document may materially change the coding, format and clinical context of patient data. In addition, data may be omitted in some cases. CLINICAL DECISIONS SHOULD BE BASED ON THE PRIMARY CLINICAL RECORDS. [facility] [employer] [facility]. provides no warranty or guarantee of the accuracy or completeness of information in this document.
--- OUTSIDE RECORDS SUMMARY | 2024-10-12 01:16 | XMS RPT_ITS | CCD ---
Author Organization [facility] Care Team Providers Care Instrument Man Name Role Phone Unavailable Primary Care Provider Unavailmars Alvarez MD, Dr. Farooq Primary Care Provider [phone] Dr. Joseph Zaragoza DO Attending Provider Dr. Joseph Zaragoza DO Emergency Provider [phone] Mitchell FAJARDO, Dr. Whitehead Other Provider Kaycee [...] day. 60 tablet 4 08/15/2024 Active Vit No.704-Zmww-Ubwoj ( Vitamin) 27 mg iron- 800 mcg tablet (1 source) Start: 08-31-2024 Vit No.681-Izez-Psvam ( Vitamin) 27 mg iron- 800 mcg [...] Translations: [32 weeks gestation of ([facility])] Onset: 09-05-2024 Episodic Residual codes; unclassified (1 source) 29 weeks gestation of ; Translations: [29 weeks gestation of (H[facility])] Onset: 08-15-2024 Episodic Residual codes; unclassified (1 source) 27 weeks gestation of ; Translations: [27 weeks gestation of ([facility])] Onset: 07-27-2024 Episodic Residual codes; unclassified (2 sources) Gestation period, 37 weeks; Translations: [37 weeks gestation of ] 10-10-2024 Episodic Syncope (3 sources) Syncope and collapse; Translations: [Syncope and collapse] 11-24-2018 Episodic Unclassified (1 source) Excessive weight gain in , third trimester ([facility]) 09-05-2024 Viral infection (2 sources) Disease [...] Translations: [23 weeks gestation of ([facility])] Onset: 07-04-2024 Episodic Residual codes; unclassified (1 source) 16 weeks gestation of ; Translations: [16 weeks gestation of ] Onset: 05-11-2024 Episodic Results Test Name Value Interpretation Reference Range Facility Examination level ultrasound on 10-10-2024 [facility] Radiology Study observation (narrative) [facility] URINE OB DIP B/Oon Glucose Ql (U) Negative Neg mg/dL [facility] Interpretation and review of laboratory results Normal [facility] Protein.monoclonal (U) [Mass/Vol] 30 mg/dL Neg [facility] C. trachomatis+N. gonorrhoea e DNA QUINTIN+probe Ql (Unsp spec)on 10-03-2024 C. trachomatis rRNA QUINTIN+probe Ql (Unsp spec) Not detected Normal Not detected [facility] Comment on above: Order Comment: Speci men Type: SWAB [facility] Address: [address] [place] [address] Performed By: #### 3 6902-5 #### [facility] CLIA [id number] [address] [place] [address] [place] N. gonorrhoeae rRNA QUINTIN+probe Ql (Unsp spec) Not detected Normal Not detected [facility] Comment on above: Order Comment: Speci men Type: SWAB [facility] Address: [address] [place] [address] Performed By: #### 3 6902-5 #### [facility] CLIA [id number] [address] [place] [address] [place] ROUTINE, GROUP B ST REPTOCOCCUS BY PCRon 10-03-2024 ROUTINE, GROUP B STREPTOCOCCUS BY PCR Not detected Normal [facility] Comment on above: Performed By: #### M AT21 #### [facility] CLIA [id number] [address] [place] [address] URINE OB DIP B/Oon 5 Glucose Ql (U) Negative Neg mg/dL [facility] Protein.monoclonal (U) [Mass/Vol] Negative Neg mg/dL [facility] CNPNon 09-19-2024 CNPN Telephone (OBGYWM) FATOUMATA CLARK ([id number]) 3 F Date Time Provider Department 09/19/24 HALEY NAVARRO OBGYWAlis During your visit today, we recorded the following information about you: Denise Combs RN 09/19/2024 4:40 PM Signed Haley Navarro MD to [facility] Ob-Medical Transcription Editor Pool 09/19/24 3:55 PM Result Note Needs growth US in 4 weeks. Polyhydramnios on US today. Haley Navarro MD OBSTETRIC ULTRASOUND I Denise Combs RN 09/19/2024 4:40 PM Signed Tried reaching Pt via phone; However, voicemail box is full at this time and unable to leave a voicemail. Eureka King message sent to Pt. Denise Combs RN [...] Status:Closed by MARGUERITE SANDERS on 09/20/24 Normal [facility] Examination level ultrasound on 09-19-2024 [facility] Radiology Study observation (narrative[facility] Urine Cultureon 09-03-2024 [facility] Mixed Gram Positive Organisms [place] Count 25,000-50,000 MIXC Mixed contaminants. Submit a new specimen if indicated. Normal [facility] Comment on above: Performed By: #### M 100.2200 ####[facility] [id number] [place], [address] Bilirubin Test strip Ql (U)O rdered By: Kaycee Pittman on 08-31-2024 Bilirubin Ql (U) Negative Negative [facility] Ketones Test strip Ql (U)Ord ered By: Kaycee Pittman on 08-31-2024 Ketones Ql (U) Negative Negative [facility] Microscopic analysis of urin e for red blood cells (RBC)Ordered By: Kaycee Pittman on 08-31-2024 Microscopic analysis of urine for red blood cells (RBC) > 100 SEEN /hpf 0-5 [facility] Mucus LM Ql (Urine sed)Order ed By: Kaycee Pittman on 08-31-2024 Mucus Ql (Urine sed) 0 SEEN /hpf [facility] Nitrite Test strip Ql (U)Ord ered By: Kaycee Pittman on 08-31-2024 Nitrite Ql (U) Negative Negative [facility] OB Triage Physician Noteon 0 08-31-2024 OB Triage Physician Note [facility] Medical Records Department [address] [place] [address] OB Triage Physician Note 08/31/24 1910 MR#: [id number] Acct: [id number] Name: FATOUMATA CLARK Rep #: [id number] : 2005 19 From: Kaycee Pittman CNM PCP: Dr. Oseas Alvarez MD Status:DEP CLI Y Location: [facility] FATOUMATA CLARK, is a 19 F at [...] of A P 08/31/241914 Date Kaycee Pittman [facility] Cosigner Signature (if applicable): Date CC: MIGUEL Pittman; Dr. Oseas Alvarez MD Signed Normal [facility] Protein Test strip Ql (U)Ord ered By: Kaycee Pittman on 08-31-2024 Protein Ql (U) 30 mg/dl High Negative [facility] Squamous epithelial cells de tection in urine sediment by light microscopyOrdered By: Kaycee Pittman on 08-31-2024 Epithelial cells.squamous LM Ql (Urine sed) 0-5 SEEN /hpf -10 [facility] Urinalysis, Completeon 08-31 EPI,RENAL 0-5 SEEN Normal 0-5 [facility] Comment on above: Order Comment: CLEAN CATCH Performed By: #### L 400.0001 #### [facility] [address] [place], [address] EPI,SQUAMOUS 0-5 SEEN Normal -10 [facility] Comment on above: Order Comment: CLEAN CATCH Performed By: #### L 400.0001 #### [facility] [address] [place], [address] RBC > 100 SEEN Normal [address] Comment on above: Order Comment: CLEAN CATCH Performed By: #### L 400.0001 #### [facility] [address] [place], [address] BACTERIA 0 SEEN Normal None Seen [facility] Comment on above: Order Comment: CLEAN CATCH Performed By: #### L 400.0001 #### [facility] [address] [place], [address] Mucus Ql (Urine sed) 0 SEEN Normal [facility] Comment on above: Order Comment: CLEAN CATCH Performed By: #### L 400.0001 #### [facility] [address] [place], [address] WBC 0 SEEN Normal [address] [place] [address] Comment on above: Order Comment: CLEAN CATCH Performed By: #### L 400.0001 #### [facility] [place], [address] Urine clarityOrdered By: Jos Pittman on 08-31-2024 Clarity (U) Sl. Cloudy Clear [facility] Urine color determinationOrd ered By: Kaycee Pittman on 08-31-2024 Color (U) Yellow Yellow [facility] Urine glucose detectionOrder ed By: Kaycee Pittman on 08-31-2024 Glucose Ql (U) Normal mg/dl Normal [facility] Urine leukocyte esterase det ection by dipstickOrdered By: Kaycee Pittman on 08-31-2024 Leukocyte esterase Test strip Ql (U) 100 /ul High Negative [facility] Urine pHOrdered By: Kaycee Pittman on 08-31-2024 pH (U) 7.0 [pH] 5.0 - 8.0 [facility] Urine sediment bacteria coun t by microscopy (number/high power field)Ordered By: Kaycee Pittman on 08-31-2024 Bacteria LM.HPF (Urine sed) [#/Area] 0 /[HPF] None Seen [facility] Urine sediment renal epithel ial cell count by microscopy (number/high power field)Ordered By: Kaycee Pittman on 08-31-2024 Epithelial cells.renal LM.HPF (Urine sed) [#/Area] 0 /[HPF] 0-5 [facility] Urine specific gravity measu rementOrdered By: Kaycee Pittman on 08-31-2024 Specific gravity (U) [Rel density] 1.005 1.002-1.030 [facility] Urine urobilinogen measureme ntOrdered By: Kaycee Pittman on 08-31-2024 Urobilinogen Ql (U) Normal mg/dl Normal [facility] White blood cell countOrdere d By: Kaycee Pittman on 08-31-2024 White blood cell count 0 SEEN /hpf 0-5 [facility] CBC W Auto Differential pane l (Bld)on 07-27-2024 Basophils (Bld) [#/Vol] 0.07 10*3/uL Normal <0.11 [facility] Comment on above: Order Comment: Speci men Type: BLOOD SPECIMEN [facility] Address: [address] [place] [address] Performed By: #### 1 6128-1 #### [facility] CLIA [id number] [address] [place] [address] [place] Basophils/100 WBC (Bld) 0.5 % Normal [facility] Comment on above: Order Comment: Speci men Type: BLOOD SPECIMEN [facility] Address: [address] [place] [address] Performed By: #### 1 6128-1 #### [facility] CLIA [id number] [address] [place] [address] [place] Differential cell count method Nom (Bld) Auto Normal [facility] Comment on above: Order Comment: Speci men Type: BLOOD SPECIMEN [facility] Address: [address] [place] [address] Performed By: #### 1 6128-1 #### [facility] CLIA [id number] [address] [place] [address] [place] Eosinophils (Bld) [#/Vol] 0.22 10*3/uL Normal <0.46 [facility] Comment on above: Order Comment: Speci men Type: BLOOD SPECIMEN [facility] Address: [address] [place] [address] Performed By: #### 1 6128-1 #### [facility] CLIA [id number] [address] [place] [address] [place] [facility] Eosinophils/100 WBC (Bld) 1.7 % Normal [facility] Comment on above: Order Comment: Speci men Type: BLOOD SPECIMEN [facility] Address: [address] [place] [address] Performed By: #### 1 6128-1 #### [facility] CLIA [id number] [address] [place] [address] [place] Erythrocyte distribution width (RBC) [Ratio] 12.9 % Normal 11.5-15.0 [facility] Comment on above: Order Comment: Speci men Type: BLOOD SPECIMEN [facility] Address: [address] [place] [address] Performed By: #### 1 6128-1 #### [facility] CLIA [id number] [address] [place] [address] [place] Hematocrit (Bld) [Volume fraction] 33.3 % Low 36.0-46.0 [facility] Comment on above: Order Comment: Speci men Type: BLOOD SPECIMEN [facility] Address: [address] [place] [address] Performed By: #### 1 6128-1 #### [facility] CLIA [id number] [address] [place] [address] [place] Hemoglobin (Bld) [Mass/Vol] 11.4 g/dL Low 11.5-15.5 [facility] Comment on above: Order Comment: Speci men Type: BLOOD SPECIMEN [facility] Address: [address] [place] [address] Performed By: #### 1 6128-1 #### [facility] CLIA [id number] [address] [place] [address] [place] Immature granulocytes (Bld) [#/Vol] 0.39 10*3/uL High <0.10 [facility] Comment on above: Order Comment: Speci men Type: BLOOD SPECIMEN [facility] Address: [address] [place] [address] Performed By: #### 1 6128-1 #### [facility] CLIA [id number] [address] [place] [address] [place] Immature granulocytes/100 WBC (Bld) 3.0 % Normal [facility] Comment on above: Order Comment: Speci men Type: BLOOD SPECIMEN [facility] Address: [address] [place] [address] Performed By: #### 1 6128-1 #### [facility] CLIA [id number] [address] [place] [address] [place] Lymphocytes (Bld) [#/Vol] 2.51 10*3/uL Normal 1.00-4.00 [facility] Comment on above: Order Comment: Speci men Type: BLOOD SPECIMEN [facility] Address: [address] [place] [address] Performed By: #### 1 6128-1 #### [facility] CLIA [id number] [address] [place] [address] [place] Lymphocytes/100 WBC (Bld) 19.1 % Normal [facility] Comment on above: Order Comment: Speci men Type: BLOOD SPECIMEN [facility] Address: [address] [place] [address] Performed By: #### 1 6128-1 #### [facility] CLIA [id number] [address] [place] [address] [place] MCH (RBC) [Entitic mass] 29.5 pg Normal 26.0-34.0 [facility] Comment on above: Order Comment: Speci men Type: BLOOD SPECIMEN [facility] Address: [address] [place] [address] Performed By: #### 1 6128-1 #### [facility] CLIA [id number] [address] [place] [address] [place] MCHC (RBC) [Mass/Vol] 34.2 g/dL Normal 30.5-36.0 [facility] Comment on above: Order Comment: Speci men Type: BLOOD SPECIMEN [facility] Address: [address] [place] [address] Performed By: #### 1 6128-1 #### [facility] CLIA [id number] [address] [place] [address] [place] MCV (RBC) [Entitic vol] 86.3 fL Normal 80.0-100.0 C [facility] Comment on above: Order Comment: Speci men Type: BLOOD SPECIMEN [facility] Address: [address] [place] [address] Performed By: #### 1 6128-1 #### [facility] CLIA [id number] [address] [place] [address] [place] Monocytes (Bld) [#/Vol] 1.20 10*3/uL High <0.87 [facility] Comment on above: Order Comment: Speci men Type: BLOOD SPECIMEN [facility] Address: [address] [place] [address] Performed By: #### 1 6128-1 #### [facility] CLIA [id number] [address] [place] [address] [place] Monocytes/100 WBC (Bld) 9.1 % Normal C [facility] Comment on above: Order Comment: Speci men Type: BLOOD SPECIMEN [facility] Address: [address] [place] [address] Performed By: #### 1 6128-1 #### [facility] CLIA [id number] [address] [place] [address] [place] Neutrophils (Bld) [#/Vol] 8.74 10*3/uL High 1.45-7.50 [facility] Comment on above: Order Comment: Speci men Type: BLOOD SPECIMEN [facility] Address: [address] [place] [address] Performed By: #### 1 6128-1 #### [facility] CLIA [id number] [address] [place] [address] [place] Neutrophils/100 WBC (Bld) 66.6 % Normal [facility] Comment on above: Order Comment: Speci men Type: BLOOD SPECIMEN [facility] Address: [address] [place] [address] Performed By: #### 1 6128-1 #### [facility] CLIA [id number] [address] [place] [address] [place] Nucleated RBC (Bld) [#/Vol] 10*3/uL Normal <0.01 [facility] Comment on above: Order Comment: Speci men Type: BLOOD SPECIMEN [facility] Address: [address] [place] [address] Performed By: #### 1 6128-1 #### [facility] CLIA [id number] [address] [place] [address] [place] Nucleated RBC/100 WBC (Bld) [Ratio] 0.0 /100 WBC Normal [facility] Comment on above: Order Comment: Speci men Type: BLOOD SPECIMEN [facility] Address: [address] [place] [address] Performed By: #### 1 6128-1 #### [facility] CLIA [id number] [address] [place] [address] [place] Platelet mean volume (Bld) [Entitic vol] 9.0 fL Normal 9.0-12.7 [facility] Comment on above: Order Comment: Speci men Type: BLOOD SPECIMEN [facility] Address: [address] [place] [address] Performed By: #### 1 6128-1 #### [facility] CLIA [id number] [address] [place] [address] [place] Platelets (Bld) [#/Vol] 300 10*3/uL Normal 150-400 [facility] Comment on above: Order Comment: Speci men Type: BLOOD SPECIMEN [facility] Address: [address] [place] [address] Performed By: #### 1 6128-1 #### [facility] CLIA [id number] [address] [place] [address] [place] RBC (Bld) [#/Vol] 3.86 10*6/uL Low 3.90-5.20 [facility] Comment on above: Order Comment: Speci men Type: BLOOD SPECIMEN [facility] Address: [address] [place] [address] Performed By: #### 1 6128-1 #### [facility] CLIA [id number] [address] [place] [address] [place] WBC (Bld) [#/Vol] 13.13 10*3/uL High 3.70-11.00 [facility] Comment on above: Order Comment: Speci men Type: BLOOD SPECIMEN [facility] Address: [address] [place] [address] Performed By: #### 1 6128-1 #### [facility] CLIA [id number] [address] [place] [address] [place] GESTATIONAL GLUCOSE SCREEN, 1-HOUR, 50 GRAM, NON-FASTINGon 07-27-2024 Glucose [Mass/Vol] 118 mg/dL Normal 74-134 [facility] Comment on above: Order Comment: Speci men Type: BLOOD SPECIMEN [facility] Address: [address] [place] [address] Result Comment: er [facility] Congress of Obstetricians and Gynecologists (Alirio/Marychuy) guidelines state a gestational diabetes mellitus positive screen is made, in women not previously diagnosed with overt diabetes, when the 1 hr plasma glucose level is equal to or above 140 mg/dL. [facility] [employer] [facility] [place] recommends a 135 mg/dL cutoff. Performed By: #### G LTGST #### [facility] CLIA [id number] [address] [place] [address] [place] Reagin and Treponema pallidu m IgG and IgM [Interp]on 07-27-2024 T. pallidum IgG+IgM IA Ql (S) Non-Reactive Normal Nonreactive [facility] Comment on above: Order Comment: Speci men Type: BLOOD SPECIMEN [facility] Address: [address] [place] [address] Performed By: #### 7 3752-8 #### [facility] CLIA [id number] [address] [place] [address] [place] Reagin+T pallidum IgG+IgM Se rPl-Impon 07-27-2024 Reagin and Treponema pallidum IgG and IgM [Interp] Cannot exclude recent Treponemal infection if specimen collected within 7-10 days after appearance of suspect lesions or 2-3 weeks after an exposure. Clinical correlation is required. Normal [facility] Comment on above: Order Comment: Speci men Type: BLOOD SPECIMEN [facility] Address: [address] [place] [address] Performed By: #### 7 3752-8 #### [facility] CLIA [id number] [address] [place] [address] [place] Examination level ultrasound [...] 13 oz EFW by: Hadlock (HC-AC-FL) Extended Lead Caster 7.0 mm CM 4.9 mm 46% Nicolaides [...] normal LVOT view: normal 3-vessel view: normal 1-ctgmcj-rhhylhg view: normal Heart / Thorax Situs: situs [...] By: Ratna Yuan RDMS, RVT Read By: Jroge Patel M.D. MATERNAL MEDICINE [facility] C. trachomatis+N. gonorrhoea e DNA QUINTIN+probe Ql (Unsp spec)on 06-08-2024 C. trachomatis rRNA QUINTIN+probe Ql (Unsp spec) Not detected Normal Not detected [facility] Comment on above: Order Comment: Speci men Type: BLOOD SPECIMEN [facility] Address: [address] [place] [address] Performed By: #### M AT21 #### [facility] CLIA [id number] [address] [place] [address] N. gonorrhoeae rRNA QUINTIN+probe Ql (Unsp spec) Not detected Normal Not detected [facility] Comment on above: Order Comment: Speci men Type: BLOOD SPECIMEN [facility] Address: [address] [place] [address] Performed By: #### M AT21 #### [facility] CLIA [id number] [address] [place] [address] Examination level ultrasound on 06-08-2024 Radiology Study observation (narrative) [facility] CBC W Auto Differential pane l (Bld)on 05-11-2024 Basophils (Bld) [#/Vol] 0.03 10*3/uL Normal <0.11 [facility] Comment on above: Order Comment: Speci men Type: BLOOD SPECIMEN [facility] Address: [address] [place] [address] Performed By: #### 5 7021-8 #### [id number] [address] [place] [address] [place] Basophils/100 WBC (Bld) 0.3 % Normal C [facility] Comment on above: Order Comment: Speci men Type: BLOOD SPECIMEN [facility] Address: [address] [place] [address] Performed By: #### 5 7021-8 #### [id number] [address] [place] [address] [place] Differential cell count method Nom (Bld) Auto Normal [facility] Comment on above: Order Comment: Speci men Type: BLOOD SPECIMEN [facility] Address: [address] [place] [address] Performed By: #### 5 7021-8 #### [facility] CLIA [id number] [address] [place] [address] [place] Eosinophils (Bld) [#/Vol] 0.19 10*3/uL Normal <0.46 [facility] Comment on above: Order Comment: Speci men Type: BLOOD SPECIMEN [facility] Address: [address] [place] [address] Performed By: #### 5 7021-8 #### [facility] CLIA [id number] [address] [place] [address] [place] Eosinophils/100 WBC (Bld) 2.1 % Normal [facility] Comment on above: Order Comment: Speci men Type: BLOOD SPECIMEN [facility] Address: [address] [place], [place] [id number] Performed By: #### 5 7021-8 #### [facility] CLIA [id number] [address] [place] [address] [place] Erythrocyte distribution width (RBC) [Ratio] 13.0 % Normal 11.5-15.0 [facility] Comment on above: Order Comment: Speci men Type: BLOOD SPECIMEN [facility] Address: [address] [place], [place] [id number] Performed By: #### 5 7021-8 #### [facility] [id number] [address] [place] [address] [place] Hematocrit (Bld) [Volume fraction] 36.1 % Normal 36.0-46.0 [facility] Comment on above: Order Comment: Speci men Type: BLOOD SPECIMEN [facility] Address: [address] [place] [address] Performed By: #### 5 7021-8 #### [facility] CLIA [id number] [address] [place] [address] [place] Hemoglobin (Bld) [Mass/Vol] 12.4 g/dL Normal 11.5-15.5 [facility] Comment on above: Order Comment: Speci men Type: BLOOD SPECIMEN [facility] Address: [address] [place] [address] Performed By: #### 5 7021-8 #### [facility] CLIA [id number] [address] [place] [address] [place] Immature granulocytes (Bld) [#/Vol] 0.03 10*3/uL Normal <0.10 [facility] Comment on above: Order Comment: Speci men Type: BLOOD SPECIMEN [facility] Address: [address] [place] [address] Performed By: #### 5 7021-8 #### [facility] CLIA [id number] [address] [place] [address] [place] Immature granulocytes/100 WBC (Bld) 0.3 % Normal [facility] Comment on above: Order Comment: Speci men Type: BLOOD SPECIMEN [facility] Address: [address] [place] [address] Performed By: #### 5 7021-8 #### [facility] CLIA [id number] [address] [place] [address] [place] Lymphocytes (Bld) [#/Vol] 2.03 10*3/uL Normal 1.00-4.00 [facility] Comment on above: Order Comment: Speci men Type: BLOOD SPECIMEN [facility] Address: [address] [place] [address] Performed By: #### 5 7021-8 #### [facility] CLIA [id number] [address] [place] [address] [place] Lymphocytes/100 WBC (Bld) 22.6 % Normal [facility] Comment on above: Order Comment: Speci men Type: BLOOD SPECIMEN [facility] Address: [address] [place] [address] Performed By: #### 5 7021-8 #### [facility] CLIA [id number] [address] [place] [address] [place] MCH (RBC) [Entitic mass] 30.2 pg Normal 26.0-34.0 [facility] Comment on above: Order Comment: Speci men Type: BLOOD SPECIMEN [facility] Address: [address] [place] [address] Performed By: #### 5 7021-8 #### [facility] CLIA [id number] [address] [place] [address] [place] MCHC (RBC) [Mass/Vol] 34.3 g/dL Normal 30.5-36.0 [facility] Comment on above: Order Comment: Speci men Type: BLOOD SPECIMEN [facility] Address: [address] [place] [address] Performed By: #### 5 7021-8 #### [facility] CLIA [id number] [address] [place] [address] [place] MCV (RBC) [Entitic vol] 87.8 fL Normal 80.0-100.0 [facility] Comment on above: Order Comment: Speci men Type: BLOOD SPECIMEN [facility] Address: [address] [place] [address] Performed By: #### 5 7021-8 #### [facility] CLIA [id number] [address] [place] [address] [place] Monocytes (Bld) [#/Vol] 0.72 10*3/uL Normal <0.87 [facility] Comment on above: Order Comment: Speci men Type: BLOOD SPECIMEN [facility] Address: [address] [place] [address] Performed By: #### 5 7021-8 #### [facility] CLIA [id number] [address] [place] [address] [place] Monocytes/100 WBC (Bld) 8.0 % Normal [facility] Comment on above: Order Comment: Speci men Type: BLOOD SPECIMEN [facility] Address: [address] [place] [address] Performed By: #### 5 7021-8 #### [facility] CLIA [id number] [address] [place] [address] [place] Neutrophils (Bld) [#/Vol] 5.98 10*3/uL Normal 1.45-7.50 [facility] Comment on above: Order Comment: Speci men Type: BLOOD SPECIMEN [facility] Address: [address] [place] [address] Performed By: #### 5 7021-8 #### [facility] CLIA [id number] [address] [place] [address] [place] Neutrophils/100 WBC (Bld) 66.7 % Normal [facility] Comment on above: Order Comment: Speci men Type: BLOOD SPECIMEN [facility] Address: [address] [place] [address] Performed By: #### 5 7021-8 #### [facility] CLIA [id number] [address] [place] [address] [place] Nucleated RBC (Bld) [#/Vol] 10*3/uL Normal <0.01 [facility] Comment on above: Order Comment: Speci men Type: BLOOD SPECIMEN [facility] Address: [address] [place] [address] Performed By: #### 5 7021-8 #### [facility] CLIA [id number] [address] [place] [address] [place] Nucleated RBC/100 WBC (Bld) [Ratio] 0.0 /100 WBC Normal [facility] Comment on above: Order Comment: Speci men Type: BLOOD SPECIMEN [facility] Address: [address] [place] [address] Performed By: #### 5 7021-8 #### [facility] CLIA [id number] [address] [place] [address] [place] Platelet mean volume (Bld) [Entitic vol] 9.5 fL Normal 9.0-12.7 [facility] Comment on above: Order Comment: Speci men Type: BLOOD SPECIMEN [facility] Address: [address] [place] [address] Performed By: #### 5 7021-8 #### [facility] CLIA [id number] [address] [place] [address] [place] Platelets (Bld) [#/Vol] 306 10*3/uL Normal 150-400 [facility] Comment on above: Order Comment: Speci men Type: BLOOD SPECIMEN [facility] Address: [address] [place] [address] Performed By: #### 5 7021-8 #### [facility] CLIA [id number] [address] [place] [address] [place] RBC (Bld) [#/Vol] 4.11 10*6/uL Normal 3.90-5.20 [facility] Comment on above: Order Comment: Speci men Type: BLOOD SPECIMEN [facility] Address: [address] [place] [address] Performed By: #### 5 7021-8 #### [facility] CLIA [id number] [address] [place] [address] [place] WBC (Bld) [#/Vol] 8.98 10*3/uL Normal 3.70-11.00 [facility] Comment on above: Order Comment: Speci men Type: BLOOD SPECIMEN [facility] Address: [address] [place] [address] Performed By: #### 5 7021-8 #### [facility] CLIA [id number] [address] [place] [address] [place] HBV surface Ag Ser Qlon 02-2 HBV surface Ag Ql (S) Negative Normal Negative [facility] Comment on above: Order Comment: Speci men Type: BLOOD SPECIMEN [facility] Address: [address] [place] [address] Performed By: #### M AT21 #### [facility] CLIA [id number] [address] [place] [address] HCV Ab Ser Qlon 05-11-2024 HCV Ab Ql (S) Negative Normal Negative [facility] Comment on above: Order Comment: Speci men Type: BLOOD SPECIMEN [facility] Address: [address] [place] [address] Result Comment: The result suggests no evidence of active infection with Hepatitis C virus. Should recent infection be suspected, repeat testing may be considered 4-6 weeks after this draw. Performed By: #### 1 6128-1 #### [facility] CLIA [id number] [address] [place] [address] [place] [facility] HIV 1+2 Ab IA Qlon HIV 1 and 2 Ab IA.rapid Nom (S/P/Bld) Normal [facility] Comment on above: Order Comment: Speci men Type: BLOOD SPECIMEN [facility] Address: [address] [place] [address] Result Comment: Test not indicated. Performed By: #### M AT21 #### [facility] CLIA [id number] [address] [place] [address] HIV 1+2 Ab+HIV1 p24 Ag IA Ql Non-Reactive Normal Nonreactive [facility] Comment on above: Order Comment: Speci men Type: BLOOD SPECIMEN [facility] Address: [address] [place] [address] Performed By: #### M AT21 #### [facility] CLIA [id number] [address] [place] [address] HIV immunoassay testing algorithm interpretation (S/P/Bld) [Interp] Normal [facility] Comment on above: Order Comment: Speci men Type: BLOOD SPECIMEN [facility] Address: [address] [place] [address] Result Comment: No e vidence of HIV-1 or HIV-2 infection. Should recent infection be suspected, repeat testing may be considered 2-3 weeks after this draw. [place] Rev. Code 3701.243(E): This information has been [...] diagnoses. Performed By: #### M AT21 #### [facility] CLIA [id number] [address] [place] [address] HbA1c (Bld)on 05-11-2024 Average glucose Estimated from glycated hemoglobin (Bld) [Mass/Vol] 82 mg/dL Normal [facility] Comment on above: Order Comment: Speci men Type: BLOOD SPECIMEN [facility] Address: [address] [place] [address] Result Comment: eAG: (Estimated average glucose) is a calculated value from HgbA1c and is premium service representative of the average blood glucose level in the last 2-3 month period. Performed By: #### 1 6128-1 #### [facility] CLIA [id number] [address] [place] [address] [place] HbA1c (Bld) [Mass fraction] 4.5 % Normal 4.3-5.6 [facility] Comment on above: Order Comment: Speci men Type: BLOOD SPECIMEN [facility] Address: [address] [place] [address] Result Comment: Amer ican Diabetes Association guidelines indicate that patients with HgbA1c in the range 5.7-6.4% are at increased risk for development of diabetes, and intervention by lifestyle modification may be beneficial. HgbA1c greater or equal to 6.5% is considered diagnostic of diabetes. Performed By: #### 1 6128-1 #### [facility] CLIA [id number] [address] [place] [address] [place] [id number] PLUSon 02-27-2025 Cell-free DNA./Cell-free DNA.total Dosage of chromosome-specific cfDNA (cfDNA) [Molar fraction] 22% Normal [facility] Comment on above: Order Comment: Speci men Type: BLOOD SPECIMEN [facility] Address: [address] [place] [address] Performed By: #### M AT21 #### [facility] CLIA [id number] [address] [place] [address] Chr 13+18+21+X+Y aneuploidy Dosage of chromosome-specific cfDNA Ql (cfDNA) Negative Normal [facility] Comment on above: Order Comment: Speci brad Type: BLOOD SPECIMEN [facility] Address: [address] [place] [address] Performed By: #### M AT21 #### [facility] CLIA [id number] [address] [place] [address] Chr 21 trisomy Dosage of chromosome-specific cfDNA Ql (cfDNA) Negative Normal [facility] Comment on above: Order Comment: Speci men Type: BLOOD SPECIMEN [facility] Address: [address] [place] [address] Performed By: #### M AT21 #### [facility] CLIA [id number] [address] [place] [address] Chr X and Y aneuploidy risk Sequencing Ql (cfDNA) [Interp] Not detected Normal [facility] Comment on above: Order Comment: Speci men Type: BLOOD SPECIMEN [facility] Address: [address] [place] [address] Result Comment: Not Detected Not Detected Performed By: #### M AT21 #### [facility] CLIA [id number] [address] [place] [address] Citation Raghu (Reference lab test) Comment Normal [facility] Comment on above: Order Comment: [place] Type: BLOOD SPECIMEN [facility] Address: [address] [place] [address] Result Comment: 1. P yusuf BRINK, et al. Ana M Med. 2012;14(3):296-305. 2. Beena MANUEL et al. Prenat Diag. 2013;33(6):591-597. 3. Robin C, et al. Clin Chem. 2015 Apr;61(4):608-616. 4. Asim BRINK et al. Ana M Med. 2011;13(11):913-920. 5. ACOG/SMFM Practice Bulletin No. 226, Dec 2019. Performed By: #### M AT21 #### [facility] CLIA [id number] [address] [place] [address] Gestational age Estimated from conception date Noble Normal [facility] Comment on above: Order Comment: [place] Type: BLOOD SPECIMEN [facility] Address: [address] [place] [address] Performed By: #### M AT21 #### [facility] CLIA [id number] [address] [place] [id number] GESTATIONALAGE AGE > OR = 9W Yes Normal [facility] Comment on above: Order Comment: [place] Type: BLOOD SPECIMEN [facility] Address: [address] [place] [address] Performed By: #### M AT21 #### [facility] CLIA [id number] [address] [place] [phone] Laboratory comment Raghu (Report) Comment Normal [facility] Comment on above: Order Comment: [place] Type: BLOOD SPECIMEN [facility] Address: [address] [place] [address] Result Comment: The MaterniT(R) 21 PLUS laboratory-developed [...] #### M AT21 #### [facility] CLIA [id number] [address] [place] [phone] assistant hall director name Nom (Provider) Comment Normal [facility] Comment on above: Order Comment: Speci men Type: BLOOD SPECIMEN [facility] Address: [address] [place] [address] Result Comment: This specimen showed an expected representation of chromosome 21, 18 and 13 material. Clinical correlation is suggested. Comment Josué Flor MD, PhD, Director, [facility] Performed By: #### M AT21 #### [facility] CLIA [id number] [address] [place] [address] LIMITATIONS OF THE TEST Comment Normal [facility] Comment on above: Order Comment: Speci men Type: BLOOD SPECIMEN [facility] Address: [address] [place] [address] Result Comment: Annalee spicer the results of [...] Fragmin(R)). Performed By: #### M AT21 #### [facility] CLIA [id number] [address] [place] [address] Monosomy X risk Dosage of chromosome-specific cfDNA Ql (Plasma cell-free+WBC DNA) [Interp] Not detected Normal [facility] Comment on above: Order Comment: [place] Type: BLOOD SPECIMEN [facility] Address: [address] [place] [address] Performed By: #### M AT21 #### [facility] CLIA [id number] [address] [place] [address] NEGATIVE PREDICTIVE VALUE Note Normal [facility] Comment on above: Order Comment: [place] Type: BLOOD SPECIMEN [facility] Address: [address] [place] [address] Result Comment: The Negative Predictive Value (NPV) for trisomy 21, 18, and 13 is greater than 99%. The NPV for SCA and ESS cannot be calculated as SCA and ESS are only reported when an abnormality is detected. Performed By: #### M AT21 #### [facility] CLIA [id number] [address] [place] [address] PERFORMANCE CHARACTERISTICS Note Normal [facility] Comment on above: Order Comment: [place] Type: BLOOD SPECIMEN [facility] Address: [address] [place] [address] Result Comment: ! Sex ! Accuracy: 99.4% [...] ! ! ! * As reported in [facility] database nstd37 [https://www.ncbi.nlm.nih.gov/dbvar/studies/nstd37/ ] # [...] only. Performed By: #### M AT21 #### [facility] CLIA [id number] [address] [place] [address] POSITIVE PREDICTIVE VALUE N/A Normal [facility] Comment on above: Order Comment: [place] Type: BLOOD SPECIMEN [facility] Address: [address] [place] [address] Performed By: #### M AT21 #### [facility] CLIA [id number] [address] [place] [address] Reference Lab Test Method Comment Normal [facility] Comment on above: Order Comment: [place] Type: BLOOD SPECIMEN [facility] Address: [address] [place] [address] Result Comment: See Notes Circulating cell-free DNA [...] 22. Performed By: #### M AT21 #### [facility] CLIA [id number] [address] [place] [address] Service comment (Unsp spec) [Interp] Comment Normal [facility] Comment on above: Order Comment: [place] Type: BLOOD SPECIMEN [facility] Address: [address] [place] [address] Result Comment: See Notes [employer] is a subsidiary of [employer], using the brand [employer]. This test was developed and its performance characteristics determined by [employer]. It has not been cleared or approved by the Food and Drug Administration. This laboratory is certified under the Clinical Laboratory Improvement Amendments (CLIA) as qualified to perform high complexity clinical laboratory testing and accredited by the [employer] (CAP). If there is future clinical need for adding MaterniT GENOME testing, this specimen will be available until term. [facility] samples will not be retained beyond 60 days. [facility] patients will have to send a new sample for re-sequencing ([facility] Test Code: [id number]). Performed By: #### M AT21 #### [facility] CLIA [id number] [address] [place] [address] Sex Dosage of chromosome-specific cfDNA Nom (cfDNA) Comment Normal [facility] Comment on above: Order Comment: Speci men Type: BLOOD SPECIMEN [facility] Address: [address] [place] [address] Result Comment: Cons istent with Male Performed By: #### M AT21 #### [facility] CLIA [id number] [address] [place] [address] Test performance information Raghu (Unsp spec) Comment Normal [facility] Comment on above: Order Comment: Speci men Type: BLOOD SPECIMEN [facility] Address: [address] [place] [address] Result Comment: The performance characteristics of the MaterniT(R) 21 PLUS laboratory-developed test (LDT) have been determined in a clinical validation study with women at increased risk for chromosomal aneuploidy.[1-4] Performed By: #### M AT21 #### [facility] CLIA [id number] [address] [place] [address] Trisomy 13 risk Dosage of chromosome-specific cfDNA Ql (cfDNA) [Interp] Negative Normal [facility] Comment on above: Order Comment: Speci men Type: BLOOD SPECIMEN [facility] Address: [address] [place] [address] Performed By: #### M AT21 #### [facility] CLIA [id number] [address] [place] [address] Trisomy 18 risk Dosage of chromosome-specific cfDNA Ql (Plasma cell-free+WBC DNA) [Interp] Negative Normal [facility] Comment on above: Order Comment: [place] Type: BLOOD SPECIMEN [facility] Address: [address] [place] [address] Performed By: #### M AT21 #### [facility] CLIA [id number] [address] [place] [address] RUBELLA IGG ANTIBODYon 05-11 RUBELLA IGG AB, QUAL Positive Normal Positive [facility] Comment on above: Order Comment: [facility] Type: BLOOD SPECIMEN [facility] Address: [address] [place] [address] Result Comment: The result suggests recent or past exposure to Rubella virus or history of Rubella vaccination. Positive result may also be seen due to presence of passively-transferred antibodies. Please correlate with patient's history. Performed By: #### R UBIGG #### [facility] CLIA [id number] [address] [place] [address] [place] Reagin and Treponema pallidu m IgG and IgM [Interp]on 05-11-2024 T. pallidum IgG+IgM IA Ql (S) Non-Reactive Normal Nonreactive [facility] Comment on above: Order Comment: [facility] Type: BLOOD SPECIMEN [facility] Address: [address] [place] [address] Performed By: #### M AT21 #### [facility] CLIA [id number] [address] [place] [address] Reagin+T pallidum IgG+IgM Se rPl-Impon 05-11-2024 Reagin and Treponema pallidum IgG and IgM [Interp] Cannot exclude recent Treponemal infection if specimen collected within 7-10 days after appearance of suspect lesions or 2-3 weeks after an exposure. Clinical correlation is required. Normal [facility] Comment on above: Order Comment: Speci men Type: BLOOD SPECIMEN [facility] Address: [address] [place] [address] Performed By: #### M AT21 #### [facility] CLIA [id number] [address] [place] [address] TYPE + SCREEN PRENATALon ABO O Normal [facility] Comment on above: Order Comment: Speci men Type: BLOOD SPECIMEN [facility] Address: [address] [place] [address] Performed By: #### T SPN #### [facility] CLIA [id number] [address] [place] [address] [place] Rh Nom (Bld) Positive Normal [facility] Comment on above: Order Comment: Speci men Type: BLOOD SPECIMEN [facility] Address: [address] [place] [address] Performed By: #### T SPN #### [facility] CLIA [id number] [address] [place] [address] [place] TYPE AND SCREEN EXPIRATION 05/14/2024 23:59 Normal [facility] Comment on above: Order Comment: Speci men Type: BLOOD SPECIMEN [facility] Address: [address] [place] [address] Performed By: #### T SPN #### [facility] CLIA [id number] [address] [place] [address] [place] Urine Cultureon 05-10-2024 URC Below infection leve l. Mixed Gram Positive Organisms [place] Count 1000-10,000 MIXC Mixed contaminants. Submit a new specimen if indicated. Normal [facility] Comment on above: Performed By: #### M 100.2200 ####[facility] [id number] [place], [address] [id number] 05-08-2024 ABO and Rh group Nom (Bld) Blood group O Rh(D) positive Normal [facility] Comment on above: Performed By: #### L 500.2500, L100.0100, L700.8000, B882-1 #### [facility] [address] [place], [address] Absolute lymphocyte countOrd ered By: Joseph Zaragoza on 05-07-2024 Lymphocytes Auto (Unsp spec) [#/Vol] 3.20 10*3/uL 0.83-4.51 [facility] Absolute neutrophil countOrd ered By: Joseph Zaragoza on 05-07-2024 Neutrophils (Bld) [#/Vol] 5.9 10*3/uL 2.0-7.7 [facility] Automated blood erythrocyte countOrdered By: Joseph Zaragoza on 05-07-2024 RBC (Bld) [#/Vol] 4.02 10*6/uL Low 4.2-5.4 [facility] Comment on above: Performed By: #### L 500.2500, L100.0100, L700.8000, B882-1 #### [facility] [address] [place], [address] Automated blood hematocrit ( percentage)Ordered By: Joseph Zaragoza on 05-07-2024 Hematocrit (Bld) [Volume fraction] 34.3 % Low 37-47 [facility] Comment on above: Performed By: #### L 500.2500, L100.0100, L700.8000, B882-1 #### [facility] [address] [place], [address] Automated lymphocyte count a s percentage of total leukocytesOrdered By: Joseph Zaragoza on 05-07-2024 Lymphocytes/100 WBC Auto (Unsp spec) 31.1 % 19-41 [facility] Basic Metabolic Profile (BMP )on 05-07-2024 BUN/CRE 16.1 RATIO Normal 10-20 [facility] Comment on above: Performed By: #### L 500.2500, L100.0100, L700.8000, B882-1 #### [facility] [address] [place], [address] [place],Total 8.9 mg/dL Normal 8.5-10.1 [facility] Comment on above: Performed By: #### L 500.2500, L100.0100, L700.8000, B882-1 #### [facility] [address] [place], [address] Chloride [Moles/Vol] 106 mmol/L Normal 98-107 [facility] Comment on above: Performed By: #### L 500.2500, L100.0100, L700.8000, B882-1 #### [facility] [address] [place], [address] CO2 [Moles/Vol] 25.0 mmol/L Normal 21.0-32.0 [facility] Comment on above: Performed By: #### L 500.2500, L100.0100, L700.8000, B882-1 #### [facility] [address] [place], [address] Creatinine [Mass/Vol] 0.43 mg/dL Low 0.55-1.02 [facility] Comment on above: Result Comment: The validity of the calculated GFR GFRAA in patients over 70 years has not been determined. Clinical correlation is essential. Performed By: #### L 500.2500, L100.0100, L700.8000, B882-1 #### [facility] [address] [place], [address] ECRCL 212.28 ml/min Normal [facility] Comment on above: Performed By: #### L 500.2500, L100.0100, L700.8000, B882-1 #### [facility] [address] [place], [address] EST GFR - AA 239 mL/min Normal >60 [facility] Comment on above: Result Comment: Afri can Kenyan GFR Calc Performed By: #### L 500.2500, L100.0100, L700.8000, B882-1 #### [facility] [address] [place], [address] GAP 6 Normal 5-15 [facility] Comment on above: Performed By: #### L 500.2500, L100.0100, L700.8000, B882-1 #### [facility] [address] [place], [address] GFR/1.73 sq M.predicted among non-blacks MDRD (S/P/Bld) [Vol rate/Area] 197 mL/min/{1.73_m2} Normal >60 [facility] Comment on above: Result Comment: Non- GFR Calc Performed By: #### L 500.2500, L100.0100, L700.8000, B882-1 #### [facility] [address] [place], [address] Glucose [Mass/Vol] 92 mg/dL Normal 74-106 [facility] Comment on above: Performed By: #### L 500.2500, L100.0100, L700.8000, B882-1 #### [facility] [address] [place], [address] Potassium [Moles/Vol] 3.3 mmol/L Low 3.5-5.1 [facility] Comment on above: Performed By: #### L 500.2500, L100.0100, L700.8000, B882-1 #### [facility] [address] [place], [address] Sodium [Moles/Vol] 137 mmol/L Normal 136-145 [facility] Comment on above: Performed By: #### L 500.2500, L100.0100, L700.8000, B882-1 #### [facility] [address] [place], [address] Urea nitrogen [Mass/Vol] 7 mg/dL Normal 7-18 [facility] Comment on above: Performed By: #### L 500.2500, L100.0100, L700.8000, B882-1 #### [facility] [address] [place], [address] Basophil percentageOrdered B y: Joseph Zaragoza on 05-07-2024 Basophils/100 WBC (Bld) 0.4 % Normal 0-1 [facility] Comment on above: Performed By: #### L 500.2500, L100.0100, L700.8000, B882-1 #### [facility] [address] [place], [address] Bilirubin Test strip Ql (U)O rdered By: Joseph Zaragoza on 05-07-2024 Bilirubin Ql (U) Negative Negative [facility] Blood urea nitrogen (BUN)/cr eatinine ratioOrdered By: Joseph Zaragoza on 05-07-2024 Urea nitrogen/Creatinine [Mass ratio] 16.1 mg/mg 10-20 [facility] CBC W/Diff, Automatedon 04-16 Absolute Lymph 3.20 X10 3/uL Normal 0.83-4.51 [facility] Comment on above: Performed By: #### L 500.2500, L100.0100, L700.8000, B882-1 #### [facility] [address] [place], [address] Absolute Neut 5.9 X10 3/uL Normal 2.0-7.7 [facility] Comment on above: Performed By: #### L 500.2500, L100.0100, L700.8000, B882-1 #### [facility] [address] [place], [address] IG% 0.400 Normal 0.0-0.9 [facility] Comment on above: Result Comment: IG% - Immature Granulocytes (promyelocytes, myelocytes and metamyelocytes) > 1% indicates that a LEFT SHIFT is Present. Performed By: #### L 500.2500, L100.0100, L700.8000, B882-1 #### [facility] [address] [place], [address] Lymphocytes/100 WBC (Bld) 31.1 % Normal 19-41 [facility] Comment on above: Performed By: #### L 500.2500, L100.0100, L700.8000, B882-1 #### [facility] [address] [place], [address] Nucleated RBC (Bld) [#/Vol] 0 10*3/uL Normal 0-5 [facility] Comment on above: Performed By: #### L 500.2500, L100.0100, L700.8000, B882-1 #### [facility] [address] [place], [address] RDW SD 39.1 fl Normal 35.1-43.9 [facility] Comment on above: Performed By: #### L 500.2500, L100.0100, L700.8000, B882-1 #### [facility] [address] [place], [address] Carbon dioxide measurementOr dered By: Joseph Zaragoza on 05-07-2024 CO2 [Moles/Vol] 25.0 mmol/L 21.0-32.0 [facility] Chloride measurementOrdered By: Joseph Zaragoza on 05-07-2024 Chloride [Moles/Vol] 106 mmol/L 98-107 [facility] Emergency Department Summary on 05-07-2024 Emergency Department Summary [facility] Medical Records Department [address] [place] [address] Emergency Department Summary 05/07/24 MR#: [id number] Acct: [id number] Name: FATOUMATA CLARK Rep #: [id number] : 2005 18 From: Joseph Zaragoza DO [...] History obtained from others: none Consults: none [facility] Narrative: Patient was initially hemodynamically stable, afebrile and nontoxic-appearing. Exam with gravid uterus otherwise benign abdomen. I considered the following differential diagnosis: Miscarriage, placental abruption, I obtained labs including blood type, CBC, BMP, urinalysis and pelvic ultrasound. Pelvic tomographic tech need to be called in. ALL IMAGES [...] ultrasound a (more content not included)... Normal [facility] Eosinophil percentageOrdered By: Joseph Zaragoza on 05-07-2024 Eosinophils/100 WBC (Bld) 2.5 % Normal 0-5 [facility] Comment on above: Performed By: #### L 500.2500, L100.0100, L700.8000, B882-1 #### [facility] [address] [place], [address] Erythrocyte distribution wid th ratioOrdered By: Joseph Zaragoza on 05-07-2024 Erythrocyte distribution width (RBC) [Ratio] 12.7 % Normal 11.6-14.6 [facility] Comment on above: Performed By: #### L 500.2500, L100.0100, L700.8000, B882-1 #### [facility] [address] [place], [place], [address] Erythrocyte distribution wid th standard deviationOrdered By: Joseph Zaragoza on 05-07-2024 Erythrocyte distribution width (RBC) [Ratio] 39.1 fl 35.1-43.9 [facility] Glomerular filtration rate ( GFR) estimationOrdered By: Joseph Zaragoza on 05-07-2024 GFR/1.73 sq M.predicted among non-blacks MDRD (S/P/Bld) [Vol rate/Area] 197 mL/min/{1.73_m2} >60 [facility] Comment on above: Non- GFR Calc Glucose measurementOrdered B y: Joseph Zaragoza on 05-07-2024 Glucose [Mass/Vol] 92 mg/dL 74-106 [facility] Hemoglobin measurementOrdere d By: Joseph Zaragoza on 05-07-2024 Hemoglobin (Bld) [Mass/Vol] 11.9 g/dL Low 12.0-15.0 [facility] Comment on above: Performed By: #### L 500.2500, L100.0100, L700.8000, B882-1 #### [facility] [address] [place], [place], [address] Immature granulocytes/100 WB C Auto (Bld)Ordered By: Joseph Zaragoza on 05-07-2024 Immature granulocytes/100 WBC (Bld) 0.400 % 0.0-0.9 [facility] Comment on above: IG% - Immature Granu locytes (promyelocytes, myelocytes and metamyelocytes) > 1% indicates that a LEFT SHIFT is Present. Ketones Test strip Ql (U)Ord ered By: Joseph Zaragoza on 05-07-2024 Ketones Ql (U) 50 mg/dl High Negative [facility] MCV (mean corpuscular volume ) determinationOrdered By: Joseph Zaragoza on 05-07-2024 MCV (RBC) [Entitic vol] 85.3 fL Normal 81-99 [facility] Comment on above: Performed By: #### L 500.2500, L100.0100, L700.8000, B882-1 #### [facility] [address] [place], [place], [address] Mean corpuscular hemoglobin (MCH) determinationOrdered By: Joseph Zaragoza on 05-07-2024 MCH (RBC) [Entitic mass] 29.6 pg Normal 27.0-32.0 [facility] Comment on above: Performed By: #### L 500.2500, L100.0100, L700.8000, B882-1 #### [facility] [address] [place], [place], [address] Mean corpuscular hemoglobin concentration (MCHC) determinationOrdered By: Joseph Zaragoza on 05-07-2024 MCHC (RBC) [Mass/Vol] 34.7 g/dL Normal 32-36 [facility] Comment on above: Performed By: #### L 500.2500, L100.0100, L700.8000, B882-1 #### [facility] [address] [place], [place], [address] Mean platelet volume determi nationOrdered By: Joseph Zaragoza on 05-07-2024 Platelet mean volume (Bld) [Entitic vol] 9.1 fL Normal 6.2-12.0 [facility] Comment on above: Performed By: #### L 500.2500, L100.0100, L700.8000, B882-1 #### [facility] [address] [place], [place], [address] Microscopic analysis of urin e for red blood cells (RBC)Ordered By: Joseph Zaragoza on 05-07-2024 Microscopic analysis of urine for red blood cells (RBC) 0-5 SEEN /hpf 0-5 [facility] Monocyte percentageOrdered B y: Joseph Zaragoza on 05-07-2024 Monocytes/100 WBC (Bld) 8.2 % Normal 0-10 [facility] Comment on above: Performed By: #### L 500.2500, L100.0100, L700.8000, B882-1 #### [facility] [address] [place], [place], [address] Mucus LM Ql (Urine sed)Order ed By: Joseph Zaragoza on 05-07-2024 Mucus Ql (Urine sed) 1+ /hpf [facility] Neutrophil percentageOrdered By: Joseph Zaragoza on 05-07-2024 Neutrophils/100 WBC (Bld) 57.4 % Normal 47-70 [facility] Comment on above: Performed By: #### L 500.2500, L100.0100, L700.8000, B882-1 #### [facility] [address] [place], [place], [address] Nitrite Test strip Ql (U)Ord ered By: Joseph Zaragoza on 05-07-2024 Nitrite Ql (U) Negative Negative [facility] Nucleated red blood cell per centageOrdered By: Joseph Zaragoza on 05-07-2024 Nucleated RBC/100 WBC (Bld) [Ratio] 0 % 0-5 [facility] OB Limited (No Biometrics)on 05-07-2024 OB Limited (No Biometrics) [facility] Imaging Services [address] [place], [place] [id number] OB Limited (No Biometrics) MR#: [id number] Acct: [id number] Name: ANITRAFATOUMATA NIKKO Rep #: [id number] : 2005 F 18 From: Daryn Darden MD PCP: Dr. Oseas Alvarez MD Status: [facility] ER Study: OB Limited (No Biometrics) Date of Exam: 05/07 Exam# [id number] Ordering Dr: Joseph Zaragoza DO PROCEDURE: OB [...] Oseas Alvarez MD; Dr. Joseph Zaragoza DO News Clipping Cutter: Signed Normal [facility] Platelet countOrdered By: Bess Zaragoza on 05-07-2024 Platelets (Bld) [#/Vol] 317 10*3/uL Normal 150-450 [facility] Comment on above: Performed By: #### L 500.2500, L100.0100, L700.8000, B882-1 #### [facility] [address] [place], [place], [address] Potassium measurementOrdered By: Joseph Zaragoza on 05-07-2024 Potassium [Moles/Vol] 3.3 mmol/L Low 3.5-5.1 [facility] Protein Test strip Ql (U)Ord ered By: Joseph Zaragoza on 05-07-2024 Protein Ql (U) 30 mg/dl High Negative [facility] Serum anion gap measurementO rdered By: Joseph Zaragoza on 05-07-2024 Anion gap [Moles/Vol] 6 mmol/L 5-15 [facility] Serum human chorionic gonado tropin detection for pregnancyOrdered By: Joseph Zaragoza on 05-07-2024 HCG ( test) Ql [address] mIU/mL High <4 [facility] Comment on above: hCG levels with Gest ational AgeGestational Age hCG mIU/mL (IU/L)0.2 - 1 week 5 - 501-2 weeks 50 - 5002-3 weeks 100 - 66155-8 weeks 500 - 228719-4 weeks 1000 - 200084-4 weeks 72429 - 100,0006-8 weeks 45061 - 200,0002-3 months 69[address] - 100,000 Serum or plasma calcium yamilka urement (mass/volume)Ordered By: Joseph Zaragoza on 05-07-2024 Calcium [Mass/Vol] 8.9 mg/dL 8.5-10.1 [facility] Serum or plasma creatinine m easurement (mass/volume)Ordered By: Joseph Zaragoza on 05-07-2024 Creatinine [Mass/Vol] 0.43 mg/dL Low 0.55-1.02 [facility] Comment on above: The validity of the calculated GFR & GFRAA in patients over 70 years has not been determined. Clinical correlation is essential. Serum or plasma urea nitroge n measurement (mass/volume)Ordered By: Joseph Zaragoza on 05-07-2024 Urea nitrogen [Mass/Vol] 7 mg/dL 7-18 [facility] Sodium levelOrdered By: Winston Zaragoza on 05-07-2024 Sodium [Moles/Vol] 137 mmol/L 136-145 [facility] Squamous epithelial cells de tection in urine sediment by light microscopyOrdered By: Joseph Zaragoza on 05-07-2024 Epithelial cells.squamous LM Ql (Urine sed) 10-25 SEEN /hpf 5-10 [facility] Urinalysis, Completeon 05-07 Mucus Ql (Urine sed) 1+ /hpf Normal [facility] Comment on above: Order Comment: CLEAN CATCH Performed By: #### L 400.0001 #### [facility] [address] [place], [address] BACTERIA 2+ /hpf Normal None Seen [facility] Comment on above: Order Comment: CLEAN CATCH Performed By: #### L 400.0001 #### [facility] [address] [place], [address] EPI,SQUAMOUS 10-25 SEEN Normal 5-10 [facility] Comment on above: Order Comment: CLEAN CATCH Performed By: #### L 400.0001 #### [facility] [address] [place], [address] RBC 0-5 SEEN Normal 0-5 [facility] Comment on above: Order Comment: CLEAN CATCH Performed By: #### L 400.0001 #### [facility] [address] [place], [address] WBC 25-50 SEEN Normal 0-5 [facility] Comment on above: Order Comment: CLEAN CATCH Performed By: #### L 400.0001 #### [facility] [address] [place], [address] Urine clarityOrdered By: Og Zaragoza on 05-07-2024 Clarity (U) Cloudy Clear [facility] Urine color determinationOrd ered By: Joseph Zaragoza on 05-07-2024 Color (U) Yellow Yellow [facility] Urine cultureOrdered By: Og Zaragoza on 05-07-2024 Bacteria identified Cx Nom (U) Positive Abnormal [facility] Urine glucose detectionOrder ed By: Joseph Zaragoza on 05-07-2024 Glucose Ql (U) Normal mg/dl Normal [facility] Urine leukocyte esterase det ection by dipstickOrdered By: Joseph Zaragoza on 05-07-2024 Leukocyte esterase Test strip Ql (U) 500 /ul High Negative [facility] Urine pHOrdered By: Joseph higgins on 05-07-2024 pH (U) 6.0 [pH] 5.0 - 8.0 [facility] Urine sediment bacteria coun t by microscopy (number/high power field)Ordered By: Joseph Zaragoza on 05-07-2024 Bacteria LM.HPF (Urine sed) [#/Area] 2 /[HPF] None Seen [facility] Urine specific gravity measu rementOrdered By: Joseph Zaragoza on 05-07-2024 Specific gravity (U) [Rel density] 1.025 1.002-1.030 [facility] Urine urobilinogen measureme ntOrdered By: Joseph Zaragoza on 05-07-2024 Urobilinogen Ql (U) 1 mg/dl High Normal [facility] White blood cell (WBC) count Ordered By: Joseph Zaragoza on 05-07-2024 WBC (Bld) [#/Vol] 10.3 10*3/uL Normal 4.4-11.0 [facility] Comment on above: Performed By: #### L 500.2500, L100.0100, L700.8000, B882-1 #### [facility] [address] [place], [place], [id number] White blood cell countOrdere d By: Joseph Zaragoza on 05-07-2024 White blood cell count 25-50 SEEN /hpf 0-5 [facility] hCG Titer Quant., Serumon HCG QUANT. 91946 mIU/mL High 1-3 [facility] Comment on above: Result Comment: hCG levels with Gestational Age Gestational Age hCG mIU/mL (IU/L) 0.2 - 1 week 5 - 50 1-2 weeks 50 - 500 2-3 weeks 100 - 5000 3-4 weeks 500 - 20634 4-5 weeks 1000 - 93755 5-6 weeks 18338 - 100,000 6-8 weeks 81931 - 200,000 2-3 months 15757 - 100,000 Performed By: #### L 500.2500, L100.0100, L700.8000, B882-1 #### [facility] [address] [place], [place], [id number] Carlene 04-06-2024 DENISE Telephone (OBGYWM) FATOUMATA CLARK ([id number]) 3 F Date Time Provider Department 04/06/24 [...] PM Signed Rx sent Coreen Puri APRN.Abiola Shelley RN 04/06/2024 5:01 PM Signed Patient notified. [...] COREEN PURI Pharmacy Information Pharmacy Address [id number] [place] [address] Allergies As of Date: 04/06/2024 (No Known Allergies) Date Reviewed: 04/04/2024 Reviewed by: Tesha Millard LPN - Fully Assessed Reason for Visit: Results [95] STD [102] Primary Visit Diagnosis:Chlamydia infection [A74.9] Order(s):azithromycin (ZITHROMAX) 500 mg tabletTake 2 tablets by mouth one time only for 1 dose.Disp: 2 tabletRfl: 0 [facility] [[id number]] Order #: [id number]: 1 doxycycline monohydrate (MONODOX) 100 mg capsuleTake [...] in first trimester *04/04/2024 04/04/2024 Supervision of [facility] (more content not included)... Normal [facility] Bacteria Ur Culton 5 Bacteria identified Cx Nom (U) ORGANISM ID: 1 10,000 -<50,000 CFU/ml Normal [facility] [place] Normal [facility] Comment on above: Performed By: #### M AT21 #### [facility] CLIA [id number] [address] [place] [address] C. trachomatis+N. gonorrhoea e DNA QUINTIN+probe Ql (Unsp spec)on 04-04-2024 C. trachomatis rRNA QUINTIN+probe Ql (Unsp spec) Detected Abnormal Not detected [facility] Comment on above: Order Comment: Speci men Type: BLOOD SPECIMEN Ordering Facility: [facility] Address: [address] [place] [address] Performed By: #### M AT21 #### [facility] CLIA [id number] [address] [place] [address] N. 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 [...] Read By: Coreen Puri CNP MATERNAL MEDICINE [facility] Radiology Study observation (narrative) Kim rausch [facility] 04-04-2024 T. vaginalis DNA QUINTIN+probe Ql (Unsp spec) Not detected Normal Not detected [facility] Comment on above: Order Comment: Speci men Type: BLOOD SPECIMEN Ordering Facility: [facility] Address: [address] [place] [address] Performed By: #### M AT21 #### [facility] CLIA [id number] [address] [place] [address] Emergency Department Summary on 12-20-2023 Emergency Department Summary [facility] Medical Records Department [address] [place] [address] Emergency Department Summary 12/20/23 MR#: [id number] Acct: [id number] Name: FATOUMATA CLARK Rep #: [id number] : 2005 18 From: Donaldo East DO [...] [facility] ???Medication ???Instructions ???Recorded ???Last Taken [...] commands knew that she was at [facility] year is 2023. Sensation grossly intact in [...] States that she will use ibuprofen Tylenol [id number] for pain control and icing. Patient was [...] Restrictions/Additiona l Instructions: Ice, use ibuprofen Tylenol [id number] for pain control. Follow-up with orthopedics that you referred to. Return for worsening symptoms or other concerns. Print Language: Luxembourger Disposition Disposition: Home, Self Care What to do if you have Problems For any increased pain, shortness of breath, bleeding, nausea or vomiting, chest pain, or any unexpected problems, contact your Primary Care Provid (more content not included)... Normal [facility] Hand Min 3 Viewson 4 Hand Min 3 Views [facility] Imaging Services [address] [place], [place] [address] Hand Min 3 Views MR#: [id number] Acct: [id number] Name: FATOUMATA CLARK Rep #: [id number] : 2005 F 18 From: Korin Lafleur MD PCP: Dr. Oseas Alvarez MD Status: PRE ER Study: Hand Min 3 Views Date of Exam: 12/20/23 Exam# [id number] Ordering Dr: Donaldo East DO [id number] STUDY: X-RAY - LEFT HAND REASON FOR [...] Oseas Alvarez MD; Dr. 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: Signed Normal [facility] Vital Signs Date Time Vital Sign Value Performing Clinician Facility 10-10-2024 16:11-0400 Body mass index (BMI) [Ratio] 34.24 kg/m2 Charley Medrano MD Work Phone: [facility] 10-10-2024 16:11-0400 Body weight 100.7 kg Charley Medrano MD Work Phone: [facility] 10-10-2024 16:11-0400 Diastolic blood pressure 80 mm[Hg] Charley Medrano MD Work Phone: [facility] 10-10-2024 16:11-0400 Systolic blood pressure 120 mm[Hg] Charley Medrano MD Work Phone: [facility] 10-03-2024 14:02-0400 Body mass index (BMI) [Ratio] 33.47 kg/m2 Haley Navarro MD Work Phone: [facility] 10-03-2024 14:02-0400 Body weight 98.43 kg Haley Navarro MD Work Phone: [facility] 10-03-2024 14:02-0400 Diastolic blood pressure 76 mm[Hg] Haley Navarro MD Work Phone: [facility] 10-03-2024 14:02-0400 Systolic blood pressure 128 mm[Hg] Haley Navarro MD Work Phone: [facility] 09-19-2024 10:49-0400 Body mass index (BMI) [Ratio] 31.24 kg/m2 Haley Navarro MD Work Phone: [facility] 09-19-2024 10:49-0400 Body weight 91.9 kg Haley Navarro MD Work Phone: [facility] 09-19-2024 10:49-0400 Diastolic blood pressure 64 mm[Hg] Haley Navarro MD Work Phone: [facility] 09-19-2024 10:49-0400 Systolic blood pressure 100 mm[Hg] Haley Navarro MD Work Phone: [facility] 09-05-2024 11:07-0400 Body height 171.5 cm Haley Navarro MD Work Phone: [facility] 09-05-2024 11:07-0400 Body mass index (BMI) [Ratio] 30.54 kg/m2 Haley Navarro MD Work Phone: [facility] 09-05-2024 11:07-0400 Body weight 89.81 kg Haley Navarro MD Work Phone: [facility] 09-05-2024 11:07-0400 Diastolic blood pressure 64 mm[Hg] Haley Navarro MD Work Phone: [facility] 09-05-2024 11:07-0400 Systolic blood pressure 114 mm[Hg] Haley Navarro MD Work Phone: [facility] 08-31-2024 13:34-0400 Body temperature 97.6 [degF] Dr. Oseas Alvarez MD Work Phone: [facility] 08-31-2024 13:34-0400 Diastolic blood pressure 65 mm[Hg] Dr. Oseas Alvarez MD Work Phone: [facility] 08-31-2024 13:34-0400 Heart rate 111 /min Dr. Oseas Alvarez MD Work Phone: [facility] 08-31-2024 13:34-0400 Respiratory rate 16 /min Dr. Oseas Alvarez MD Work Phone: [facility] 08-31-2024 13:34-0400 SaO2% (BldA) [Mass fraction] 91 % Dr. Oseas Alvarez MD Work Phone: [facility] 08-31-2024 13:34-0400 Systolic blood pressure 117 mm[Hg] Dr. Oseas Alvarez MD Work Phone: [facility] 08-31-2024 13:24-0400 Body height 172.[address] Oseas Alvarez MD Work Phone: [facility] 08-31-2024 13:24-0400 Body mass index (BMI) [Ratio] 29.7 kg/m2 Dr. Oseas Alvarez MD Work Phone: [facility] 08-31-2024 13:24-0400 Body weight 88.[address] Oseas Alvarez MD Work Phone: [facility] 08-15-2024 13:04-0400 Body mass index (BMI) [Ratio] 31.42 kg/m2 Haley Navarro MD Work Phone: [facility] 08-15-2024 13:04-0400 Body weight 85.64 kg Haley Navarro MD Work Phone: [facility] 08-15-2024 13:04-0400 Diastolic blood pressure 80 mm[Hg] Haley Navarro MD Work Phone: [facility] 08-15-2024 13:04-0400 Systolic blood pressure 120 mm[Hg] Haley Navarro MD Work Phone: [facility] 07-27-2024 10:57-0400 Body height 165.1 cm Haley Navarro MD Work Phone: [facility] 07-27-2024 10:39-0400 Body mass index (BMI) [Ratio] 30.12 kg/m2 Haley Navarro MD Work Phone: [facility] 07-27-2024 10:39-0400 Body weight 82.1 kg Haley Navarro MD Work Phone: [facility] 07-27-2024 10:39-0400 Diastolic blood pressure 68 mm[Hg] Haley Navarro MD Work Phone: [facility] 07-27-2024 10:39-0400 Systolic blood pressure 112 mm[Hg] Haley Navarro MD Work Phone: [facility] 07-04-2024 10:54-0400 Body mass index (BMI) [Ratio] 184.65 kg/m2 Haley Navarro MD Work Phone: [facility] 07-04-2024 10:54-0400 Body weight 78.02 kg Haley Navarro MD Work Phone: [facility] 07-04-2024 10:54-0400 Diastolic blood pressure 70 mm[Hg] Haley Navarro MD Work Phone: [facility] 07-04-2024 10:54-0400 Systolic blood pressure 100 mm[Hg] Haley Navarro MD Work Phone: [facility] 05-11-2024 09:52-0500 Body mass index (BMI) [Ratio] 156.74 kg/m2 Haley Navarro MD Work Phone: [facility] 05-11-2024 09:52-0500 Body weight 66.22 kg Haley Navarro MD Work Phone: [facility] 05-11-2024 09:52-0500 Diastolic blood pressure 78 mm[Hg] Haley Navarro MD Work Phone: [facility] 05-11-2024 09:52-0500 Systolic blood pressure 116 mm[Hg] Haley Navarro MD Work Phone: [facility] 05-08-2024 00:09-0500 Diastolic blood pressure 68 mm[Hg] Dr. Oseas Alvarez MD Work Phone: [facility] 05-08-2024 00:09-0500 Heart rate 89 /min Dr. Oseas Alvarez MD Work Phone: [facility] 05-08-2024 00:09-0500 Respiratory rate 18 /min Dr. Oseas Alvarez MD Work Phone: [facility] 05-08-2024 00:09-0500 SaO2% (BldA) [Mass fraction] 100 % Dr. Oseas Alvarez MD Work Phone: [facility] 05-08-2024 00:09-0500 Systolic blood pressure 101 mm[Hg] Dr. Oseas Alvarez MD Work Phone: [facility] 05-07-2024 22:09-0500 Body mass index (BMI) [Percentile] Per age and sex 58.3 % Dr. Oseas Alvarez MD Work Phone: [facility] 05-07-2024 22:09-0500 Body mass index (BMI) [Ratio] 22.4 kg/m2 Dr. Oseas Alvarez MD Work Phone: [facility] 05-07-2024 22:09-0500 Body temperature 97.9 [degF] Dr. Oseas Alvarez MD Work Phone: [facility] 05-07-2024 22:09-0500 Body weight [address] Oseas Alvarez MD Work Phone: [facility] 04-04-2024 08:31-0500 Body height 65 cm Coreen Boyden [employer] MACHINE.[employer]CEIVABLE BOOKKEEPER Work Phone: [facility] 04-04-2024 08:31-0500 Body mass index (BMI) [Ratio] 155.45 kg/m2 Coreen Boyden [employer]CH [employer] MACHINE.[employer] RECEIVABLE BOOKKEEPER Work Phone: [facility] 04-04-2024 08:31-0500 Body weight 65.68 kg Coreen Jaxson [employer]CH HAND MACHINE.[employer] RECEIVABLE BOOKKEEPER Work Phone: [facility] 04-04-2024 08:31-0500 Diastolic blood pressure 60 mm[Hg] Coreen Boyden [employer]CH HAND MACHINE.[employer] RECEIVABLE BOOKKEEPER Work Phone: [facility] 04-04-2024 08:31-0500 Systolic blood pressure 114 mm[Hg] Coreen Boyden [employer]CH HAND MACHINE.[employer] RECEIVABLE BOOKKEEPER Work Phone: [facility] 12-29-2022 22:03-0400 Body height 172.72 cm [facility] 12-29-2022 22:03-0400 Body mass index (BMI) [Percentile] Per age and sex 31.3 % [facility] 12-29-2022 22:03-0400 Body mass index (BMI) [Ratio] 20 kg/m2 [facility] 12-29-2022 22:03-0400 Body temperature 97.5 [degF] [facility] 12-29-2022 22:03-0400 Body weight 59.87 kg [facility] 12-29-2022 22:03-0400 Diastolic blood pressure 60 mm[Hg] [facility] 12-29-2022 22:03-0400 Heart rate 131 /min [facility] 12-29-2022 22:03-0400 Respiratory rate 15 /min [facility] 12-29-2022 22:03-0400 SaO2% (BldA) [Mass fraction] 100 % [facility] 12-29-2022 22:03-0400 Systolic blood pressure 100 mm[Hg] [facility] 08-12-2022 21:11-0400 Body height 172.72 cm [facility] 08-12-2022 21:11-0400 Body mass index (BMI) [Percentile] Per age and sex 25.9 % [facility] 08-12-2022 21:11-0400 Body mass index (BMI) [Ratio] 19.5 kg/m2 [facility] 08-12-2022 21:11-0400 Body temperature 97.9 [degF] [facility] 08-12-2022 21:11-0400 Body weight 58.46 kg [facility] 08-12-2022 21:11-0400 Diastolic blood pressure 54 mm[Hg] [facility] 08-12-2022 21:11-0400 Heart rate 86 /min [facility] 08-12-2022 21:11-0400 Respiratory rate 15 /min [facility] 08-12-2022 21:11-0400 SaO2% (BldA) [Mass fraction] 99 % [facility] 08-12-2022 21:11-0400 Systolic blood pressure 113 mm[Hg] [facility] Encounters Encounter Date Encounter Type Care Provider Facility Start: 10-11-2024 End: 10-11-2024 ambulatory Mandi Gaitan MA [facility] [place] Start: 10-11-2024 End: 10-11-2024 Patient encounter procedure Mandi Gaitan MA [facility] Comment on above: Population Health Na vigation Outreach (Ob/peds) Start: 10-10-2024 End: 10-10-2024 Patient encounter procedure Whi Tech 1 Mri Tech M[facility]aternal [facility] Comment on [...] Start: 10-03-2024 End: 10-03-2024 ambulatory HALEY NAVARRO Facility:[facility] Start: 09-19-2024 End: 09-19-2024 E-mail encounter from [...] (HCC) Start: 09-05-2024 End: 09-05-2024 ambulatory [facility] Facility:[facility] Start: 08-31-2024 End: 08-31-[address] Oseas Alvarez MD Work Phone: [facility] Work Phone: Start: 08-31-2024 End: 08-31-2024 Patient encounter procedure Kaycee Kathleenhowie [facility] Work Phone: Start: 08-15-2024 End: 08-15-2024 Patient encounter procedure Haley Navarro MD Work Phone: OB/Gynecology Comment on above: 29 weeks gestation o f (HCC) (Primary Dx); Encounter for supervision of normal first in third trimester ([facility]) Start: 08-15-2024 End: 08-15-2024 ambulatory HALEY NAVARRO Facility:[facility] Start: 07-28-2024 End: 09-27-2024 Follow-up encounter Haley Navarro MD Work Phone: OB/Gynecology Start: 07-27-2024 End: 07-27-2024 Patient encounter procedure Haley Navarro MD Work Phone: OB/Gynecology Comment on above: Encounter for superv ision of normal first in second trimester (HCC) (Primary Dx); 27 weeks gestation of (HCC) Start: 07-27-2024 End: 07-27-2024 ambulatory HALEY NAVARRO Facility:[facility] Start: 07-04-2024 End: 07-04-2024 Patient encounter procedure Haley Navarro MD Work Phone: OB/Gynecology Comment on above: Screening for diabet es mellitus (Primary Dx); 23 weeks gestation of (HCC); Encounter for supervision of normal first in second trimester ([facility]) Start: 07-04-2024 End: 07-04-2024 ambulatory HALEY NAVARRO Facility:[facility] Start: 06-12-2024 End: 08-12-2024 Follow-up encounter Marguerite Mathur MD Work Phone: OB/Gynecology Start: 06-08-2024 End: 06-08-2024 ambulatory HALEY NAVARRO Facility:[facility] Start: 06-08-2024 End: 06-08-2024 Patient encounter procedure Whi Tech 1 Mri Tech M[facility]aternal [facility] Comment on above: Encounter for anatomic survey (Primary Dx); Encounter for supervision of normal first in second trimester; 16 weeks gestation of Start: 05-16-2024 End: 07-16-2024 Follow-up encounter Haley Navarro MD Work Phone: OB/Gynecology Start: 05-12-2024 End: 07-12-2024 Follow-up encounter Coreen Puri BENCH HAND MACHINE.[employer] RECEIVABLE BOOKKEEPER Work Phone: OB/Gynecology Start: 05-11-2024 End: 05-11-2024 ambulatory [place]OREEN [place] Facility:[facility] Start: 05-11-2024 End: 05-11-2024 Patient encounter procedure Haley Navarro MD Work Phone: OB/Gynecology Comment on above: Encounter for superv ision of normal first in second trimester (Primary Dx); 16 weeks gestation of Start: 05-07-2024 End: 05-08-2024 Emergency department patient visit Dr. Joseph Zaragoza DO -Emergency Department Work Phone: Start: 04-06-2024 End: 04-06-2024 Telephone encounter Coreen Puri BENCH HAND MACHINE.[employer] RECEIVABLE BOOKKEEPER Work Phone: OB/Gynecology Comment on above: Results; STD Start: 04-04-2024 End: 04-04-2024 ambulatory COREEN [place] Facility:[facility] Start: 04-04-2024 End: 04-04-2024 Patient encounter procedure Coreen Beasleycalf BENCH HAND MACHINE.[employer] RECEIVABLE BOOKKEEPER Work Phone: OB/Gynecology Comment on above: Uncertain dates, ant epartum, unspecified trimester (Primary Dx); 10 weeks gestation of ; Supervision of normal first teen in first trimester Start: 12-20-2023 End: 12-20-2023 Emergency department patient visit Donaldo [place] Facility:[facility] Start: 12-29-2022 End: 10-17-2023 Emergency department patient visit [facility] Work Phone: Start: 08-12-2022 End: 08-12-2022 Emergency department patient visit [facility] Procedures Date Procedure Procedure Detail [...] Speci men Type: BLOOD SPECIMEN Ordering Facility: [facility] Address: [address] [place] [address] Performed By: #### T SPN #### CC MAIN BLOOD BANK [facility] [id number] [address] [place] [address] [place] Start: 05-07-2024 Urnls dip stick/tabl et reagent auto microscopy Dr. Oseas Alavrez MD Work Phone: Start: 05-07-2024 Estimated creatinine [...] uterus l imited 1/> fetuses Coreen Puri APRN.[employer] RECEIVABLE BOOKKEEPER Work Phone: Start: 04-04-2024 Adult depression scr eening assessment Haley aNvarro MD Work Phone: Plan of Treatment Date Care Activity Detail Author Start: 07-27-2034 Urine microalbumin profile DTaP,Tdap,Td Vaccine (8 - Td or Tdap) [facility] Start: 09-25-2026 Urine microalbumin profile DTaP,Tdap,Td Vaccine (7 - Td or Tdap) [facility] Start: 10-03-2025 GC (Gonorrhea) Screening (18-24) GC (Gonorrhea) Screening (18-24) [facility] Start: 10-03-2025 Screening for Chlamy farheen trachomatis Chlamydia Screening (18-24) [facility] Start: 06-08-2025 GC (Gonorrhea) Screening (18-24) GC (Gonorrhea) Screening (18-24) [facility] Start: 06-08-2025 Screening for Chlamy farheen trachomatis Chlamydia Screening (18-24) [facility] Start: 04-04-2025 Anxiety Screening Anxiety Screening [facility] Start: 04-04-2025 Depression Screening Depression Scre ening [facility] Start: 04-04-2025 GC (Gonorrhea) Screening (18-24) GC (Gonorrhea) Screening (18-24) [facility] Start: 04-04-2025 Screening for Chlamy farheen trachomatis Chlamydia Screening (18-24) [facility] Start: 11-13-2024 Influenza vaccination [facility] Start: 10-17-2024 End: 10-17-2024 Patient encounter procedure 10/17/2024 1:30 PM EDT Routine Office Visit OB/Gynecology [address] [place] [address] Charley Medrano MD [address] [place] [address] OB/ Ok per RR OB/Gynecology [...] third trimester (HCC) Expected: 09/05/2024, Expires: 09/05/2025 [facility] Work Phone: Comment on above: Expected: 09/05/2024 , Expires: 09/05/2025 Start: 09-05-2024 End: 09-05-2024 Patient encounter procedure 09/05/2024 11:10 AM EDT Routine Office Visit OB/Gynecology [address] [place] [address] Haley Navarro MD [address] [place] [address] N/A OB/Gynecology Comment on above: N/A Start: 08-31-2024 Bacteria identified in Urine by Culture Urine Culture [facility] Start: 08-31-2024 End: 08-31-2024 [facility] Start: 08-31-2024 Nonstress test [facility] Start: 08-31-2024 Obstetric monitoring [facility] Start: 08-31-2024 Vital signs measurements [facility] Start: 08-31-2024 Patient discharge [facility] Start: 08-15-2024 End: 08-15-2024 Patient encounter procedure 08/15/2024 1:10 PM EDT Routine Office Visit OB/Gynecology [address] [place] [address] Haley Navarro MD [address] [place] [address] N/A OB/Gynecology Comment on above: N/A Start: 08-03-2024 End: 07-04-2025 GESTATIONAL GLUCOSE SCREEN, 1-HOUR, 50 GRAM, NON-FASTING GESTATIONAL GLUCOSE SCREEN, 1-HOUR, 50 GRAM, NON-FASTING Lab Routine Screening for diabetes mellitus Expected: 08/03/2024 (Approximate), Expires: 07/04/2025 [facility] Work Phone: Comment on above: Expected: 08/03/2024 (Approximate), Expires: 07/04/2025 Start: 08-03-2024 End: 07-04-2025 SYPHILIS TREPONEMAL W/REFLEX SYPHILIS TREPONEMAL W/REFLEX Lab Routine 23 weeks gestation of (HCC) Encounter for supervision of normal first in second trimester ([facility]) Expected: 08/03/2024 (Approximate), Expires: 07/04/2025 [facility] Comment on above: Expected: 08/03/2024 (Approximate), Expires: 07/04/2025 Start: 07-27-2024 End: 07-27-2024 Patient encounter procedure 07/27/2024 10:50 AM EDT Routine Office Visit OB/Gynecology [address] [place] [address] Haley Navarro MD [address] [place] [address] N/A OB/Gynecology Comment on above: N/A Start: 07-04-2024 End: 10-03-2024 ANEMIA REFLEX PANEL ANEMIA REFLEX PANEL Lab Routine 23 weeks gestation of (HCC) Encounter for supervision of normal first in second trimester (HCC) Expected: 07/04/2024 (Approximate), Expires: 10/03/2024 [facility] Comment on above: Expected: 07/04/2024 (Approximate), Expires: 10/03/2024 Start: 07-04-2024 End: 07-04-2024 Patient encounter procedure 07/04/2024 11:10 AM EDT Routine Office Visit OB/Gynecology [address] [place] [address] Haley Navarro MD [address] [place] [address] Routine visit OB/Gynecology Comment on above: Routine visit Start: 06-08-2024 End: 06-08-2024 Patient encounter procedure Maternal Medicine Comment on above: Anatomy Anatomy/OB Start: 05-11-2024 End: 08-10-2024 Chromosome 21 trisomy [Presence] in Blood or Tissue by Cytogenetics [facility] Comment on above: Expected: 05/11/2024 , Expires: 08/10/2024 Start: 05-11-2024 End: 05-11-2025 OBSTETRIC ULTRASOUND WHI OBSTETRIC ULTRASOUND WHI Anc Imaging Routine Encounter for supervision of normal first in second trimester 16 weeks gestation of Expected: 05/11/2024, Expires: 05/11/2025 [facility] Work Phone: Comment on above: Expected: 05/11/2024 , Expires: 05/11/2025 Start: 05-11-2024 End: 05-11-2024 Patient encounter procedure 05/11/2024 10:00 AM EST Routine Office Visit OB/Gynecology [address] [place] [address] Haley Navarro MD [address] [place] [address] ob lmp 11/ OB/Gynecology Comment on above: ob lmp 11/6 Start: 05-08-2024 [facility] Start: 04-04-2024 End: 07-04-2024 ANEMIA REFLEX PANEL ANEMIA REFLEX PANEL Lab Routine Uncertain dates, antepartum, unspecified trimester Expected: 04/04/2024, Expires: 07/04/2024 [facility] Work Phone: Comment on above: Expected: 04/04/2024 , Expires: 07/04/2024 Start: 04-04-2024 End: 07-04-2024 Hemoglobin A1c in Blood HEMOGLOBIN A1C Lab Routine Uncertain dates, antepartum, unspecified trimester Expected: 04/04/2024, Expires: 07/04/2024 [facility] Comment on above: Expected: 04/04/2024 , Expires: 07/04/2024 Start: 04-04-2024 End: 07-04-2024 Hepatitis B virus surface Ag [Presence] in Serum HEPATITIS B SURFACE ANTIGEN Lab Routine Uncertain dates, antepartum, unspecified trimester Expected: 04/04/2024, Expires: 07/04/2024 [facility] Comment on above: Expected: 04/04/2024 , Expires: 07/04/2024 Start: 04-04-2024 End: 07-04-2024 Hepatitis C virus Ab [Presence] in Serum HEPATITIS C ANTIBODY IA WITH CONFIRMATION Lab Routine Uncertain dates, antepartum, unspecified trimester Expected: 04/04/2024, Expires: 07/04/2024 [facility] Comment on above: Expected: 04/04/2024 , Expires: 07/04/2024 Start: 04-04-2024 End: 07-04-2024 HIV 1+2 Ab [Presence] in Serum or Plasma by Immunoassay HIV 1/2 COMBO WITH REFLEX TO DIFFERENTIATION Lab Routine Uncertain dates, antepartum, unspecified trimester Expected: 04/04/2024, Expires: 07/04/2024 [facility] Comment on above: Expected: 04/04/2024 , Expires: 07/04/2024 Start: 04-04-2024 End: 04-04-2025 OBSTETRIC ULTRASOUND WHI OBSTETRIC ULTRASOUND WHI Anc Imaging Routine 10 weeks gestation of Expected: 04/04/2024, Expires: 04/04/2025 [facility] Comment on above: Expected: 04/04/2024 , Expires: 04/04/2025 Start: 04-04-2024 End: 07-04-2024 RUBELLA IGG ANTIBODY RUBELLA IGG ANTIBODY Lab Routine Uncertain dates, antepartum, unspecified trimester Expected: 04/04/2024, Expires: 07/04/2024 [facility] Comment on above: Expected: 04/04/2024 , Expires: 07/04/2024 Start: 04-04-2024 End: 07-04-2024 SYPHILIS TREPONEMAL W/REFLEX SYPHILIS TREPONEMAL W/REFLEX Lab Routine Uncertain dates, antepartum, unspecified trimester Expected: 04/04/2024, Expires: 07/04/2024 [facility] Comment on above: Expected: 04/04/2024 , Expires: 07/04/2024 Start: 04-04-2024 End: 07-04-2024 TYPE + SCREEN TYPE + SCREEN Blood Bank Routine Uncertain dates, antepartum, unspecified trimester Expected: 04/04/2024, Expires: 07/04/2024 [facility] Comment on above: Expected: 04/04/2024 , Expires: 07/04/2024 Start: 11-14-2023 Covid-19 Vaccine ( season) Covid-19 Vaccine () [facility] Start: 11-14-2023 Influenza vaccination Influenza Vacc ine (#1) [facility] Start: 12-29-2022 End: 12-29-2022 [facility] Start: 2022 Anxiety Screening Anxiety Screening [facility] Start: 2022 Depression Screening Depression Scre ening [facility] Start: 2022 GC (Gonorrhea) Screening (18-24) GC (Gonorrhea) Screening (18-24) [facility] Start: 2022 Hepatitis C screening Hepatitis C Sc reening [facility] Start: 2022 HIV screening HIV Screening [facility] Start: 2022 Screening for Chlamy farheen trachomatis Chlamydia Screening (18-24) [facility] Start: 2020 Meningococcal B Vacc ine (1 of 2 - Standard) Meningococcal B Vaccine (1 of 2 - Standard) [facility] Start: 2020 Meningococcal B Vaccine: Consider Based On Risk (1 of 2 - Patient Seeks Protection) Meningococcal B Vaccine: Consider Based On Risk (1 of 2 - Patient Seeks Protection) [facility] Start: 2018 Peds To Adult Transition Annual Assessment Peds To Adult Transition Annual Assessment [facility] Start: 03-28-2017 HPV Vaccine (2 - 2-d ose series) HPV Vaccine (2 - 2-dose series) [facility] Start: 2016 Peds To Adult Transition Initial Discussion Peds To Adult Transition Initial Discussion [facility] Bacteria identified in Urine by Culture BACTERIAL CULTURE, URINE Microbiology Routine Uncertain dates, antepartum, unspecified trimester 04/04/2024 9:20 AM EST [facility] Chlamydia trachomatis+Neisseria gonorrhoeae DNA [Presence] in Unspecified specimen by QUINTIN with probe detection GONORRHEA/CHLAMYDIA NAAT Lab Routine Uncertain dates, antepartum, unspecified trimester 04/04/2024 9:20 AM [facility] Chlamydia trachomatis+Neisseria gonorrhoeae DNA [Presence] in Unspecified specimen by QUINTIN with probe detection GONORRHEA/CHLAMYDIA NAAT Lab Routine Polyhydramnios in third trimester complication, single or unspecified fetus (HCC) Encounter for supervision of normal first in third trimester ([facility]) Excessive weight gain in , third trimester ([facility]) 36 weeks gestation of ([facility]) 10/03/2024 2:16 PM EDT [facility] Patient Education [facility] Work Phone: Patient referral [facility] Work Phone: ROUTINE, GR OUP B STREPTOCOCCUS BY PCR ROUTINE, GROUP B STREPTOCOCCUS BY PCR Microbiology Routine Polyhydramnios in third trimester complication, single or unspecified fetus (HCC) Encounter for supervision of normal first in third trimester ([facility]) Excessive weight gain in , third trimester ([facility]) 36 weeks gestation of ([facility]) 10/03/2024 2:16 PM EDT [facility] Work Phone: TRICHOMONAS VAGINALI S NAAT TRICHOMONAS VAGINALIS NAAT Lab Routine 10 weeks gestation of 04/04/2024 9:20 AM [facility] Urine culture [facility] URINE OB DIP B/O URINE OB DIP B/ O Lab Routine 34 weeks gestation of ([facility]) Encounter for supervision of normal first in third trimester ([facility]) Ordered: 09/19/2024 [facility] Work Phone: Comment on above: Ordered: 09/19/2024 Immunizations Immunization Date Immunization Notes Care Provider Sonal chilel 07-27-2024 tetanus toxoid, redu roman diphtheria toxoid, and acellular pertussis vaccine, adsorbed Haley Navarro MD Work Phone: [facility] 09-25-2016 Human Papillomavirus 9-valent vaccine Haley Navarro MD Work Phone: [facility] 09-25-2016 meningococcal polysaccharide (groups A, C, Y and W-135) diphtheria toxoid conjugate vaccine (MCV4P) Haley Navarro MD Work Phone: [facility] [facility]2016 tetanus toxoid, redu roman diphtheria toxoid, and acellular pertussis vaccine, adsorbed Haley Navarro MD Work Phone: [facility] 09-25-2016 varicella virus vaccine Neelima aNvarro MD Work Phone: [facility] 10-29-2009 diphtheria, tetanus toxoids and acellular pertussis vaccine Haley Navarro MD Work Phone: [facility] 10-29-2009 measles, mumps and rubella virus vaccine Haley Navarro MD Work Phone: [facility] 10-29-2009 poliovirus vaccine, inactivated Haley Navarro MD Work Phone: [facility] 09-01-2007 hepatitis A vaccine, pediatric/adolescent dosage, 2 dose schedule Haley Navarro MD Work Phone: [facility] 03-31-2006 hepatitis A vaccine, unspecified formulation Coreen Boyden BENCH HAND MACHINE.ACCOUNTS RECEIVABLE BOOKKEEPER Work Phone: [facility] 12-25-2005 diphtheria, tetanus toxoids and acellular pertussis vaccine Coreen Boyden BENCH HAND MACHINE.ACCOUNTS RECEIVABLE BOOKKEEPER Work Phone: [facility] 12-25-2005 haemophilus influenz ae type b vaccine, HbOC conjugate Croeen Boyden BENCH HAND MACHINE.ACCOUNTS RECEIVABLE BOOKKEEPER Work Phone: [facility] Work Phone: 08-24-2005 measles, mumps and rubella virus vaccine Coreen Jaxson BENCH HAND MACHINE.ACCOUNTS RECEIVABLE BOOKKEEPER Work Phone: [facility] 08-24-2005 pneumococcal conjuga te vaccine, 7 valent Coreen Jaxson BENCH HAND MACHINE.ACCOUNTS RECEIVABLE BOOKKEEPER Work Phone: [facility] 08-24-2005 varicella virus vaccine Branden e Jaxsno BENCH HAND MACHINE.ACCOUNTS RECEIVABLE BOOKKEEPER Work Phone: [facility] 03-26-2005 diphtheria, tetanus toxoids and acellular pertussis vaccine Haley Navarro MD Work Phone: [facility] 03-26-2005 DTaP-hepatitis B and poliovirus vaccine Coreen Jaxson BENCH HAND MACHINE.ACCOUNTS RECEIVABLE BOOKKEEPER Work Phone: [facility] 03-26-2005 haemophilus influenz ae type b vaccine, HbOC conjugate Coreen Boyden BENCH HAND MACHINE.ACCOUNTS RECEIVABLE BOOKKEEPER Work Phone: [facility] 03-26-2005 hepatitis B vaccine, pediatric or pediatric/adolescent dosage Haley Navarro MD Work Phone: [facility] 03-26-2005 pneumococcal conjuga te vaccine, 7 valent Coreen Jaxson BENCH HAND MACHINE.ACCOUNTS RECEIVABLE BOOKKEEPER Work Phone: [facility] 03-26-2005 poliovirus vaccine, inactivated Haley Navarro MD Work Phone: [facility] 02-06-2005 diphtheria, tetanus toxoids and acellular pertussis vaccine Coreen Jaxson BENCH HAND MACHINE.ACCOUNTS RECEIVABLE BOOKKEEPER Work Phone: [facility] 02-06-2005 haemophilus influenz ae type b vaccine, HbOC conjugate Coreen Jaxson BENCH HAND MACHINE.ACCOUNTS RECEIVABLE BOOKKEEPER Work Phone: [facility] 02-06-2005 pneumococcal conjuga te vaccine, 7 valent Coreen Jaxson BENCH HAND MACHINE.ACCOUNTS RECEIVABLE BOOKKEEPER Work Phone: [facility] 02-06-2005 poliovirus vaccine, inactivated Coreen Jaxson BENCH HAND MACHINE.ACCOUNTS RECEIVABLE BOOKKEEPER Work Phone: [facility] 2004 diphtheria, tetanus toxoids and acellular pertussis vaccine Coreen Jaxson BENCH HAND MACHINE.ACCOUNTS RECEIVABLE BOOKKEEPER Work Phone: [facility] 2004 haemophilus influenz ae type b vaccine, HbOC conjugate Coreen Jaxson BENCH HAND MACHINE.ACCOUNTS RECEIVABLE BOOKKEEPER Work Phone: [facility] 2004 pneumococcal conjuga te vaccine, 7 valent Coreen Jaxson BENCH HAND MACHINE.ACCOUNTS RECEIVABLE BOOKKEEPER Work Phone: [facility] 2004 poliovirus vaccine, inactivated Coreen Jaxson BENCH HAND MACHINE.ACCOUNTS RECEIVABLE BOOKKEEPER Work Phone: [facility] 2004 hepatitis B vaccine, pediatric or pediatric/adolescent dosage Coreen Boyden BENCH HAND MACHINE.ACCOUNTS RECEIVABLE BOOKKEEPER Work Phone: [facility] 2004 hepatitis B vaccine, pediatric or pediatric/adolescent dosage Coreen Boyden BENCH HAND MACHINE.ACCOUNTS RECEIVABLE BOOKKEEPER Work Phone: [facility] Payers Date Payer Category Payer Self-pay [id number] 2023 Medicaid [id number] 2009 Unknown [id number] Unknown [facility] [id number] Unknown [id number] Unknown [id number] Unknown [id number] Social History Date Type Detail Facility Start: 08-12-2022 End: 12-29-2022 Tobacco smoking status [facility] Unknown if ever smoked [facility] Start: 07-22-2020 Non-smoker [facility] Start: 2004 Sex Assigned At Female W [facility] Start: 04-04-2024 Tobacco smoking status NHIS Never smoked tobacco [facility] History of tobacco use Passive smoker [facility] Start: 04-04-2024 Tobacco use and exposure Smokeless tobacco non-user [facility] Start: 04-04-2024 End: 10-03-2024 Alcoholic beverage intake Lifetime non-drinker (finding) [facility] Start: 04-04-2024 End: 05-11-2024 History of Social function [facility] Start: 04-04-2024 End: 05-11-2024 Tobacco use panel [facility] National Score (1-100), lower number is lower risk 91 [facility] Start: 02-02-2024 [facility] Start: 2004 Sex assigned at Not on file [facility] Start: 07-03-2024 Gender identity Identifies as female gender (finding) [facility] Start: 05-07-2024 Tobacco smoking status NHIS Smokes tobacco daily (finding) [facility] NEGATED: Highlighted row [facility] NEGATED: Highlighted row Not [facility] Mental Status Date Assessment Result Facility 12-29-2022 Cognitive function Level Of Cons ciousness Awake;Alert;Appropriate;Follow s Commands [facility] Work Phone: Clinical Notes 08-12-2022 to [...] left message to call back to discuss in shop service technician. message sent. Reason for Outreach Medicaid OB/Peds Care Gaps due: N/A Patient Contacted: Unable or unnecessary to reach patient: Unable to reach patient Left message MyChart message sent Navigation Signature: Mandi Winter MA October 11, 2024 2:19 PM documented in this encounter [facility] 10-10-2024 Progress note Formatting of t his [...] first teen in first trimester ([facility]) Orders: URINE OB DIP B/O Polyhydramnios in third trimester complication, single or unspecified fetus (HCC) mild. AGA w/ MVP 7.6 cm. Orders: URINE OB DIP B/O 37 weeks gestation of ([facility]) Orders: URINE OB DIP B/O Charley Medrano M.D. [facility] 10-10-2024 Miscellaneous Notes Formattin g of this [...] first teen in first trimester ([facility]) Orders: URINE OB DIP B/O Polyhydramnios in third trimester complication, single or unspecified fetus (HCC) mild. AGA w/ MVP 7.6 cm. Orders: URINE OB DIP B/O 37 weeks gestation of ([facility]) Orders: URINE OB DIP B/O Charley Medrano M.D. documented in this encounter [facility] 10-10-2024 Note Indication Evaluation of growth Impression [...] 10 oz EFW by: Hadlock (HC-AC-FL) Extended Lead Caster 7.1 mm Extremities / Bony Struc [place] [...] 10/10/2024 4:10 PM EDT SEQUENTIAL SCREENINGS The [facility] offers sequential screenings for women who are [...] It will require an appointment with our communications engineering technician. This is not an ultrasound performed [...] the above symptoms, contact our office at [phone] and ask to speak with a nurse. After hours, you can call doctors registry at [phone] OR call [facility] at [phone] and ask to have the doctor occupational therapist aide paged. If you consider this an emergency, dial 11-13-2 or go to your nearest emergency department. NEED HELP? Are you dealing with a violent or abusive relationship? Are you a victim of rape or sexual assult? Call [facility] ([place]) 24 hour Crisis Hotline: 400.823.3366 or 541-242-2648. MANUAL Your Guide to a Healthy manual is now on-line. Visit [email or web address] to download your free copy documented in this encounter [facility] 10-03-2024 Progress note Formatting of t his note might be different from the original. KJ - S: Fatoumata denies LOF, contractions or vaginal bleeding. O: 36w6d, see flow sheet SENSITIVE EXAM: The sensitive examination was discussed with the Patient or Patient's Authorized Brass Pickler. As applicable, any other physician, advance practice provider, medical student, or other health professional student that will be observing or involved in the sensitive examination for educational or training purposes was discussed with the Patient or Authorized Brass Pickler. The Patient or Authorized Brass Pickler has agreed to proceed with the sensitive examination. (Sensitive examination includes inspection and/or palpation of the breasts, pelvis, prostate and anorectal regions). A/P: Assessment & Plan Polyhydramnios in third trimester complication, single or unspecified fetus ([facility]) Orders: URINE OB DIP B/O ROUTINE, GROUP B STREPTOCOCCUS BY PCR GONORRHEA/CHLAMYDIA NAAT Encounter for supervision of normal first in third trimester ([facility]) Orders: URINE OB DIP B/O ROUTINE, GROUP B STREPTOCOCCUS BY PCR GONORRHEA/CHLAMYDIA NAAT Excessive weight gain in , third trimester ([facility]) Growth US 2 week ago shows EFW at 87% and mild polyhydramnios. Orders: URINE OB DIP B/O ROUTINE, GROUP B STREPTOCOCCUS BY PCR GONORRHEA/CHLAMYDIA NAAT 36 weeks gestation of ([facility]) Orders: URINE OB DIP B/O ROUTINE, GROUP B STREPTOCOCCUS BY PCR GONORRHEA/CHLAMYDIA NAAT Reviewed labor & FM precautions Haley Navarro MD [facility] 10-03-2024 Miscellaneous Notes Formattin g of this note might be different from the original. KJ - S: Fatoumata denies LOF, contractions or vaginal bleeding. O: 36w6d, see flow sheet SENSITIVE EXAM: The sensitive examination was discussed with the Patient or Patient's Authorized Brass Pickler. As applicable, any other physician, advance practice provider, medical student, or other health professional student that will be observing or involved in the sensitive examination for educational or training purposes was discussed with the Patient or Authorized Brass Pickler. The Patient or Authorized Brass Pickler has agreed to proceed with the sensitive examination. (Sensitive examination includes inspection and/or palpation of the breasts, pelvis, prostate and anorectal regions). A/P: Assessment & Plan Polyhydramnios in third trimester complication, single or unspecified fetus ([facility]) Orders: URINE OB DIP B/O ROUTINE, GROUP B STREPTOCOCCUS BY PCR GONORRHEA/CHLAMYDIA NAAT Encounter for supervision of normal first in third trimester ([facility]) Orders: URINE OB DIP B/O ROUTINE, GROUP B STREPTOCOCCUS BY PCR GONORRHEA/CHLAMYDIA NAAT Excessive weight gain in , third trimester ([facility]) Growth US 2 week ago shows EFW at 87% and mild polyhydramnios. Orders: URINE OB DIP B/O ROUTINE, GROUP B STREPTOCOCCUS BY PCR GONORRHEA/CHLAMYDIA NAAT 36 weeks gestation of ([facility]) Orders: URINE OB DIP B/O ROUTINE, GROUP B STREPTOCOCCUS BY PCR GONORRHEA/CHLAMYDIA NAAT Reviewed labor & FM precautions Haley Navarro MD documented in this encounter [facility] 10-03-2024 Instructions Ashley Burnett MA - 10/03/2024 1:50 PM EDT SEQUENTIAL SCREENINGS The [facility] offers sequential screenings for women who are [...] It will require an appointment with our communications engineering technician. This is not an ultrasound performed [...] the above symptoms, contact our office at [phone] and ask to speak with a nurse. After hours, you can call doctors registry at [phone] OR call [facility] at [phone] and ask to have the doctor occupational therapist aide paged. If you consider this an emergency, dial 9-1-0 or go to your nearest emergency department. NEED HELP? Are you dealing with a violent or abusive relationship? Are you a victim of rape or sexual assult? Call [facility] ([place]) 24 hour Crisis Hotline: 973.112.8029 or 024-948-6121. MANUAL Your Guide to a Healthy manual is now on-line. Visit [email or web address] [email or web address] to download your free copy documented in this encounter [facility] 09-19-2024 Telephone encount er Note Tried reaching Pt via phone; However, voicemail box is full at this time and unable to leave a voicemail. [place] message sent to Pt. Denise Combs RN [facility] 09-19-2024 Telephone encount er Note Haley Navarro MD to [facility] Ob-Medical Transcription Editor [place] 09/19/24 3:55 PM Result Note Needs growth US in 4 weeks. Polyhydramnios on US today. Haley Navarro MD OBSTETRIC ULTRASOUND I [facility] 09-19-2024 Miscellaneous Notes Formattin g of this note might be different from the original. Tried reaching Pt via phone; However, voicemail box is full at this time and unable to leave a voicemail. [place] King message sent to Pt. Denise Combs RN Haley Navarro MD to [facility] Ob-Medical Transcription Editor [place] 09/19/24 3:55 PM Result Note Needs growth US in 4 weeks. Polyhydramnios on US today. Haley Navarro MD OBSTETRIC ULTRASOUND [facility] documented in this encounter [facility] 09-19-2024 Note Indication Evaluation of growth, excessive [...] Plan 34 weeks gestation of ([facility]) Orders: URINE OB DIP B/O Encounter for supervision of normal first in third trimester ([facility]) Orders: URINE OB DIP B/O Growth US today Reviewed PTL & FM precautions Haley Navarro MD [facility] 09-19-2024 Miscellaneous Notes Formattin g of this note might be different from the original. KJ - S: Fatoumata denies LOF, contractions or vaginal bleeding. O: 34w6d, see flow sheet SENSITIVE EXAM: Sensitive exam not performed. A/P: Assessment & Plan 34 weeks gestation of ([facility]) Orders: URINE OB DIP B/O Encounter for supervision of normal first in third trimester ([facility]) Orders: URINE OB DIP B/O Growth US today Reviewed PTL & FM precautions Haley Navarro MD documented in this encounter [facility] 09-19-2024 Instructions Mandi Navas MA - 09/19/2024 10:49 AM EDT SEQUENTIAL SCREENINGS The [facility] offers sequential screenings for women who are [...] It will require an appointment with our communications engineering technician. This is not an ultrasound performed [...] the above symptoms, contact our office at [phone] and ask to speak with a nurse. After hours, you can call doctors registry at [phone] OR call [facility] at [phone] and ask to have the doctor occupational therapist aide paged. If you consider this an emergency, dial 9--2 or go to your nearest emergency department. NEED HELP? Are you dealing with a violent or abusive relationship? Are you a victim of rape or sexual assult? Call [facility] ([place]) 24 hour Crisis Hotline: 292.369.2766 or 977-466-1566. MANUAL Your Guide to a Healthy manual is now on-line. Visit [email or web address] [email or web address] to download your free copy documented in this encounter [facility] 09-05-2024 Progress note Formatting of t his [...] PTL & FM precautions Haley Navarro MD [facility] 09-05-2024 Miscellaneous Notes Formattin g of this [...] Haley Navarro MD documented in this encounter [facility] 09-05-2024 Instructions Aida Hernandez MA - 09/05/2024 11:03 AM EDT SEQUENTIAL SCREENINGS The [facility] offers sequential screenings for women who are [...] It will require an appointment with our communications engineering technician. This is not an ultrasound performed [...] the above symptoms, contact our office at [phone] and ask to speak with a nurse. After hours, you can call doctors registry at [phone] OR call [facility] at [phone] and ask to have the doctor occupational therapist aide paged. If you consider this an emergency, dial 2-4-7 or go to your nearest emergency department. NEED HELP? Are you dealing with a violent or abusive relationship? Are you a victim of rape or sexual assult? Call [facility] [place] ([facility] 24 hour Crisis Hotline: 780.175.9505 or 980-864-9950. MANUAL Your Guide to a Healthy manual is now on-line. Visit [email or web address] [email or web address] to download your free copy documented in this encounter [facility] 08-15-2024 Progress note Formatting of t his note might be different from the original. KJ - S: Fatoumata denies LOF, contractions or vaginal bleeding. She reports heartburn. O: 29w6d, see flow sheet SENSITIVE EXAM: Sensitive exam not performed. A/P: Assessment & Plan 29 weeks gestation of ([facility]) Encounter for supervision of normal first in third trimester ([facility]) Heartburn - rx pepcid. Advised on diet. Reviewed PTL & FM precautions Haley Navarro MD [facility] 08-15-2024 Miscellaneous Notes Formattin g of this note might be different from the original. KJ - S: Fatoumata denies LOF, contractions or vaginal bleeding. She reports heartburn. O: 29w6d, see flow sheet SENSITIVE EXAM: Sensitive exam not performed. A/P: Assessment & Plan 29 weeks gestation of ([facility]) Encounter for supervision of normal first in third trimester ([facility]) Heartburn - rx pepcid. Advised on diet. Reviewed PTL & FM precautions Haley Navarro MD documented in this encounter [facility] 08-15-2024 Instructions Mandi Navas MA - 08/15/2024 1:03 PM EDT SEQUENTIAL SCREENINGS The [facility] offers sequential screenings for women who are [...] It will require an appointment with our communications engineering technician. This is not an ultrasound performed [...] the above symptoms, contact our office at [phone] and ask to speak with a nurse. After hours, you can call doctors registry at [phone] OR call [facility] at [phone] and ask to have the doctor occupational therapist aide paged. If you consider this an emergency, dial 9--4 or go to your nearest emergency department. NEED HELP? Are you dealing with a violent or abusive relationship? Are you a victim of rape or sexual assult? Call [facility] ([place]) 24 hour Crisis Hotline: 821.647.6725 or 036-745-1519. MANUAL Your Guide to a Healthy manual is now on-line. Visit [email or web address] to download your free copy documented in this encounter [facility] 07-27-2024 Progress note Formatting of t his [...] PTL & FM precautions Haley Navarro MD [facility] 07-27-2024 Miscellaneous Notes Formattin g of this [...] Haley Navarro MD documented in this encounter [facility] 07-27-2024 Note HNO ID: [id number] Author: NINOSKA SEARS MA Service: ? Author Type: Auth Specialist Type: Progress Notes Filed: 07/27/2024 11:13 Note [...] severely ill: Yes Patient denies history of Guillain-[place] Syndrome (a severe paralytic illness): Yes Tdap Adacel injection was given without incident. See immunizations for details of immunizations administered today. VIS sheet provided: Yes Provider Dr Navarro was present in office at time of injection. Ninoska Sears MA [facility] 07-27-2024 History of Presen t illness Narrative [...] severely ill: Yes Patient denies history of Guillain-[place] Syndrome (a severe paralytic illness): Yes Tdap Adacel injection was given without incident. See immunizations for details of immunizations administered today. VIS sheet provided: Yes Provider Dr Navarro was present in office at time of injection. Ninoska Sears MA documented in this encounter [facility] 07-27-2024 Instructions Ashley Burnett MA - 07/27/2024 10:35 AM EDT SEQUENTIAL SCREENINGS The [facility] offers sequential screenings for women who are [...] It will require an appointment with our communications engineering technician. This is not an ultrasound performed [...] the above symptoms, contact our office at [phone] and ask to speak with a nurse. After hours, you can call doctors registry at [phone] OR call [facility] at [phone] and ask to have the doctor occupational therapist aide paged. If you consider this an emergency, dial 9-1-1 or go to your nearest emergency department. NEED HELP? Are you dealing with a violent or abusive relationship? Are you a victim of rape or sexual assult? Call [facility] [place] ([place]) 24 hour Crisis Hotline: 243.202.5187 or 653-770-3430. MANUAL Your Guide to a Healthy manual is now on-line. Visit [email or web address] [email or web address] to download your free copy documented in this encounter [facility] 07-04-2024 Progress note Formatting of t his [...] ANEMIA REFLEX PANEL; Future Haley Navarro MD [facility] 07-04-2024 Miscellaneous Notes Formattin g of this [...] normal first in second trimester ([facility]) Orders: SYPHILIS TREPONEMAL W/REFLEX; Future ANEMIA REFLEX PANEL; Future Haley Navarro MD documented in this encounter [facility] 07-04-2024 Instructions Mandi Navas MA - 07/04/2024 10:52 AM EDT SEQUENTIAL SCREENINGS The [facility] offers sequential screenings for women who are [...] It will require an appointment with our communications engineering technician. This is not an ultrasound performed [...] the above symptoms, contact our office at [phone] and ask to speak with a nurse. After hours, you can call [employer] registry at [phone] OR call [facility] at [phone] and ask to have the doctor occupational therapist aide paged. If you consider this an emergency, dial 9-1-9 or go to your nearest emergency department. NEED HELP? Are you dealing with a violent or abusive relationship? Are you a victim of rape or sexual assult? Call [facility] ([place]) 24 hour Crisis Hotline: 828.161.2615 or 227-672-6508. MANUAL Your Guide to a Healthy manual is now on-line. Visit [email or web address] [email or web address] to download your free copy documented in this encounter [facility] 05-11-2024 Progress note Formatting of t his [...] Partner also completed treatment. Haley Navarro MD [facility] 05-11-2024 Miscellaneous Notes Formattin g of this [...] Haley Navarro MD documented in this encounter [facility] 05-11-2024 Instructions Arlyn Prieto MA - 05/11/2024 9:46 AM EST SEQUENTIAL SCREENINGS The [facility] offers sequential screenings for women who are [...] It will require an appointment with our communications engineering technician. This is not an ultrasound performed [...] the above symptoms, contact our office at [phone] and ask to speak with a nurse. After hours, you can call doctors registry at [phone] OR call [facility] at [phone] and ask to have the doctor occupational therapist aide paged. If you consider this an emergency, dial 9-1- or go to your nearest emergency department. NEED HELP? Are you dealing with a violent or abusive relationship? Are you a victim of rape or sexual assult? Call [facility] ([place]) 24 hour Crisis Hotline: 492.947.5942 or 960-983-7960. MANUAL Your Guide to a Healthy manual is now on-line. Visit the [email or web address] to download your free copy documented in this encounter [facility] 04-06-2024 Telephone encount er Note Patient notified. [...] COREEN PURI Pharmacy Information Pharmacy Address Telephone [facility] [address] [place] [address] [facility] 04-06-2024 Miscellaneous Notes Formattin g of this [...] COREEN PURI Pharmacy Information Pharmacy Address Telephone [facility] [address] [place] [address] Rx sent Coreen Puri APRN.SPEEDY Patient notified. [...] Coreen Puri APRN.CNP documented in this encounter [facility] 04-06-2024 Telephone encount er Note Rx sent Coreen Puri APRN.CNP [facility] 04-06-2024 Telephone encount er Note Patient notified. She is requesting expedited partner treatment. Orders pending. She is aware is medication will be different with longer course. Advised no intercourse until after he has completed rx for at least 7 days too. Please file orders. Patient requesting call back once completed. Abiola Early RN [facility] 04-06-2024 Instructions Abiola Early RN - 04/06/2024 [...] prevent other STIs. documented in this encounter [facility] 04-06-2024 Telephone encount er Note Left message to call office. Health department form filled out and faxed. Ratna Anderson RN [facility] 04-06-2024 Telephone encount er Note +chlamydia, Rx sent. Coreen Puri APRN.CNP [facility] 04-04-2024 Instructions Tesha Millard LPN - 04/04/2024 8:14 AM EST Please select the following link to access the [facility] Your Guide to a Healthy . [email or web address] documented in this encounter [facility] 04-04-2024 Note HNO ID: [id number] Author: COREEN PURI APRN.CNP Service: ? 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 INITIAL OB ASSESSMENT HPI: Fatoumata is a [...] Partner: Name: Radhames Leary Age: 23 Occupation: Edge Inker Gender: Male History reviewed. No pertinent past [...] stiffness, Joint swelling (more content not included)... 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 INITIAL OB ASSESSMENT HPI: Fatoumata is a [...] Partner: Name: Radhames Leary Age: 23 Occupation: Edge Inker Gender: Male History reviewed. No pertinent past [...] discussed with the Patient or Patient's Authorized Brass Pickler. As applicable, any other physician, advance practice provider, medical student, or other health professional student that will be observing or involved in the sensitive examination for educational or training purposes was discussed with the Patient or Authorized Brass Pickler. The Patient or Authorized Brass Pickler has agreed to proceed with the sensitive [...] activity, CRL consistent with LMP. Coreen Puri, BENCH HAND MACHINE.ACCOUNTS RECEIVABLE BOOKKEEPER ASSESSMENT: 18 year old at 10w6d wks gestational age PLAN: 1) Patient oriented to practice. Patient given new OB orientation folder. Discussed nutrition, folic acid supplementation, dietary guidelines, exercise, smoking, alcohol, caffeine, and drug use. Discussed gestational weight gain guidelines. Discussed routine OB labs including STD/HIV. Discussed how to access Your guide to a health and the [employer]. Reviewed midwifery and home improvement contractor services that are available. 2) Screening: Hemoglobin [...] Coreen Puri APRN.SPEEDY documented in this encounter [facility] 08-12-2022 Discharge summary Note Date/Time August 12, 2022 9:31p m [facility] Medical Records Department [address] [place] [address] Emergency Department Summary 08/12/22 MR#: [id number] Acct: [id number] Name: FATOUMATA CLARK Rep #:[id number] : 2005 16 From: Oseas Francisco MD [...] your Primary Care Provider. Call [facility] ([phone]) or report to the closest Emergency Room. Call 911 if necessary. 08/12/222130 <Electronically signed by Oseas Francisco MD> Cosigner Signature (if applicable): CC: Oseas Alvarez ~ Signed [facility] Work Phone: Evaluation noteNo assessment information available [facility] Work Phone: Evaluation note* Diagnosis Uncertain dates, antepartum, unspecified trimester- Primary 10 weeks gestation of state, incidental Supervision of normal first teen in first trimester [facility] Diagnosis Chlamydia infection- Primary Unspecified chlamydial infection, in conditions classified elsewhere and of unspecified site documented in this encounter [facility] note* Diagnosis Encounter for supervision of normal first in second trimester- Primary Supervision of normal first 16 weeks gestation of state, incidental [facility]* Diagnosis Encounter for anatomic survey (HCC)- Primary Encounter for anatomic survey Encounter for supervision of normal first in second trimester (HCC) Supervision of normal first 16 weeks gestation of (HCC) state, incidental [facility]* Diagnosis Screening for diabetes mellitus- Primary 23 weeks gestation of ([facility]) state, incidental Encounter for supervision of normal first in second trimester ([facility]) Supervision of normal first [facility] Diagnosis Encounter for supervision of normal first in second trimester (HCC)- Primary Supervision of normal first 27 weeks gestation of ([facility]) state, incidental [facility] Diagnosis 29 weeks gestation of (HCC)- Primary state, incidental Encounter for supervision of normal first in third trimester (HCC) Supervision of normal first [facility] Diagnosis Encounter for supervision of normal first in third trimester (HCC)- Primary Supervision of normal first Chlamydia infection Unspecified chlamydial infection, in conditions classified elsewhere and of unspecified site 32 weeks gestation of ([facility]) state, incidental Excessive weight gain in , third trimester ([facility]) * Assessment & Plan Note - Haley Navarro MD - 09/05/2024 11:18 AM EDTAssociated Problem(s): Chlamydia infection Repeat at 36 weeks documented in this encounter [facility] note* Diagnosis Encounter for supervision of normal first in third trimester ([facility])- Primary Supervision of normal first Chlamydia infection Unspecified chlamydial infection, in conditions classified elsewhere and of unspecified site 32 weeks gestation of ([facility]) state, incidental Excessive weight gain in , third trimester ([facility]) 34 weeks gestation of ([facility])- Primary state, incidental Encounter for supervision of normal first in third trimester ([facility]) Supervision of normal first documented in this encounter [facility] note* Diagnosis Encounter for supervision of normal first in third trimester ([facility])- Primary Supervision of normal first Chlamydia infection Unspecified chlamydial infection, in conditions classified elsewhere and of unspecified site 32 weeks gestation of ([facility]) state, incidental Excessive weight gain in , third trimester ([facility]) Encounter for ultrasound to check growth ([facility])- Primary Encounter for routine screening for malformation using ultrasonics Excessive weight gain in , third trimester ([facility]) 34 weeks gestation of ([facility]) state, incidental Polyhydramnios in third trimester complication, single or unspecified fetus ([facility]) 34 weeks gestation of ([facility])- Primary state, incidental Encounter for supervision of normal first in third trimester ([facility]) Supervision of normal first documented in this encounter [facility] note* Diagnosis Encounter for supervision of normal first in third trimester ([facility])- Primary Supervision of normal first Chlamydia infection Unspecified chlamydial infection, in conditions classified elsewhere and of unspecified site 32 weeks gestation of ([facility]) state, incidental Excessive weight gain in , third trimester ([facility]) Polyhydramnios in third trimester complication, single or unspecified fetus ([facility])- Primary Encounter for supervision of normal first in third trimester ([facility]) Supervision of normal first Excessive weight gain in , third trimester ([facility]) 36 weeks gestation of ([facility]) state, incidental * Assessment & Plan Note - Haley Navarro MD - 10/03/2024 2:12 PM EDTAssociated Problem(s): Polyhydramnios in third trimester ([facility]) Orders: URINE OB DIP B/O ROUTINE, GROUP B STREPTOCOCCUS BY PCR GONORRHEA/CHLAMYDIA NAAT documented in this encounter [facility] note* Diagnosis Encounter for supervision of normal first in third trimester ([facility])- Primary Supervision of normal first Chlamydia infection Unspecified chlamydial infection, in conditions classified elsewhere and of unspecified site 32 weeks gestation of (HCC) state, incidental Excessive weight gain in , third trimester ([facility]) Polyhydramnios in third trimester complication, single or unspecified fetus (HCC)- Primary Encounter for supervision of normal first in third trimester ([facility]) Supervision of normal first Excessive weight gain in , third trimester (HCC) 36 weeks gestation of ([facility]) state, incidental Encounter for ultrasound to check growth ([facility])- Primary Encounter for routine screening for malformation using ultrasonics Polyhydramnios in third trimester complication, single or unspecified fetus ([facility]) Obesity affecting in second trimester, unspecified obesity type ([facility]) 37 weeks gestation of ([facility]) state, incidental Supervision of normal first teen in first trimester ([facility])- Primary Polyhydramnios in third trimester complication, single or unspecified fetus (HCC) 37 weeks gestation of ([facility]) state, incidental documented in this encounter [facility] note* Diagnosis Encounter for supervision of normal first in third trimester ([facility])- Primary Supervision of normal first Chlamydia infection Unspecified chlamydial infection, in conditions classified elsewhere and of unspecified site 32 weeks gestation of ([facility]) state, incidental Excessive weight gain in , third trimester ([facility]) Polyhydramnios in third trimester complication, single or unspecified fetus ([facility])- Primary Encounter for supervision of normal first in third trimester ([facility]) Supervision of normal first Excessive weight gain in , third trimester (HCC) 36 weeks gestation of ([facility]) state, incidental Supervision of normal first teen in first trimester ([facility])- Primary Polyhydramnios in third trimester complication, single or unspecified fetus (HCC) 37 weeks gestation of ([facility]) state, incidental * Assessment & Plan Note - Charley Medrano MD - 10/10/2024 4:39 PM EDT Associated Problem(s): Supervision of normal first teen in first trimester ([facility]) Orders: URINE OB DIP B/O * Assessment & Plan Note - Charley Medrano MD - 10/10/2024 4:39 PM EDT Associated Problem(s): Polyhydramnios in third trimester (HCC) mild. AGA w/ MVP 7.6 cm. Orders: URINE OB DIP B/O [facility] Additional Instructions If you develop any chest pain with inspiration shortness of breath or have any further concerns please return to the ER [facility] Work Phone: Hospital Discharge instructions Additional Instructions return to hospital or call the office if any further bright red bleeding. No intercourse till cleared after next visit.[facility] Work Phone: Reason for referral (narrative)* Diagnostic Procedure Only (Routine) - New Request Specialty Diagnoses / Procedures Referred By Ching johnson Referred To [facility] Diagnoses 10 weeks gestation of Procedures OBSTETRIC ULTRASOUND WHI US PREG UTERUS AFTER 1ST TRIMEST 1 GESTATION Coreen Puri APRN.CNP [address] [place] [address] [facility] [address] [place] [address] Referral ID Status Reason Start Date Expiration Date Visits Requested Visits Authorized [id number] New Request Auto-Generat ed Referral 04/04/2024 04/04/2025 1 1 Y [facility] ([facility]ative)No reason for referral information availableWProMedica [facility] Work Phone: Chief Complaint and Reason for Visit Chief Complaint RASH Chief Complaint COLD SX Chief Complaint Admit Date VAG BLEED PREG May 07, 2024 10:09pm ROLLOUT BLEEDING August 31, 2024 1:15 pm Advance Directives Advance Directive Response Recorded Date/ Time Living Will No December 29 10:16pm Power of Sewer Repairer No December 29, 2022 10:16pm Advance Directive Response Recorded Date/ Time Living Will No May 07 11:24pm Do you have a Healthcare Power of Sewer Repairer? No May 07, 2024 11:24pm Summary Purpose [...] or prosecute any alcohol or drug abuse patient.[facility] the event this information is protected by the Federal Confidentiality of Alcohol and Drug Abuse Patient Records regulations: The Federal rules restrict any use of the information to criminally investigate or prosecute any alcohol or drug abuse patient.[facility] Hospital[facility] the event this information is protected by the Federal Confidentiality of Alcohol and Drug Abuse Patient Records regulations: The Federal rules restrict any use of the information to criminally investigate or prosecute any alcohol or drug abuse patient.[facility] Hospital[facility] the event this information is protected by the Federal Confidentiality of Alcohol and Drug Abuse Patient Records regulations: The Federal rules restrict any use of the information to criminally investigate or prosecute any alcohol or drug abuse patient.[facility] Hospital[facility] the event this information is protected by the Federal Confidentiality of Alcohol and Drug Abuse Patient Records regulations: The Federal rules restrict any use of the information to criminally investigate or prosecute any alcohol or drug abuse patient.[facility] HospitalIn the event this information is protected by the Federal Confidentiality of Alcohol and Drug Abuse Patient Records regulations: The Federal rules restrict any use of the information to criminally investigate or prosecute any alcohol or drug abuse patient.[facility] Hospital[facility] the event this information is protected by the Federal Confidentiality of Alcohol and Drug Abuse Patient Records regulations: The Federal rules restrict any use of the information to criminally investigate or prosecute any alcohol or drug abuse patient.[facility] HospitalIn the event this information is protected by the Federal Confidentiality of Alcohol and Drug Abuse Patient Records regulations: The Federal rules restrict any use of the information to criminally investigate or prosecute any alcohol or drug abuse patient.[facility] HospitalIn the event this information is protected by the Federal Confidentiality of Alcohol and Drug Abuse Patient Records regulations: The Federal rules restrict any use of the information to criminally investigate or prosecute any alcohol or drug abuse patient.[facility] Hospital[facility] the event this information is protected by the Federal Confidentiality of Alcohol and Drug Abuse Patient Records regulations: The Federal rules restrict any use of the information to criminally investigate or prosecute any alcohol or drug abuse patient.[facility] HospitalIn the event this information is protected by the Federal Confidentiality of Alcohol and Drug Abuse Patient Records regulations: The Federal rules restrict any use of the information to criminally investigate or prosecute any alcohol or drug abuse patient.[facility] HospitalIn the event this information is protected by the Federal Confidentiality of Alcohol and Drug Abuse Patient Records regulations: The Federal rules restrict any use of the information to criminally investigate or prosecute any alcohol or drug abuse patient.[facility] HospitalIn the event this information is protected by the Federal Confidentiality of Alcohol and Drug Abuse Patient Records regulations: The Federal rules restrict any use of the information to criminally investigate or prosecute any alcohol or drug abuse patient.[facility] HospitalIn the event this information is protected by the Federal Confidentiality of Alcohol and Drug Abuse Patient Records regulations: The Federal rules restrict any use of the information to criminally investigate or prosecute any alcohol or drug abuse patient.[facility] HospitalIn the event this information is protected by the Federal Confidentiality of Alcohol and Drug Abuse Patient Records regulations: The Federal rules restrict any use of the information to criminally investigate or prosecute any alcohol or drug abuse patient.[facility] HospitalIn the event this information is protected by the Federal Confidentiality of Alcohol and Drug Abuse Patient Records regulations: The Federal rules restrict any use of the information to criminally investigate or prosecute any alcohol or drug abuse patient.[facility] HospitalIn the event this information is protected by the Federal Confidentiality of Alcohol and Drug Abuse Patient Records regulations: The Federal rules restrict any use of the information to criminally investigate or prosecute any alcohol or drug abuse patient.[facility] HospitalIn the event this information is protected by the Federal Confidentiality of Alcohol and Drug Abuse Patient Records regulations: The Federal rules restrict any use of the information to criminally investigate or prosecute any alcohol or drug abuse patient.[facility] HospitalIn the event this information is protected by the Federal Confidentiality of Alcohol and Drug Abuse Patient Records regulations: The Federal rules restrict any use of the information to criminally investigate or prosecute any alcohol or drug abuse patient.[facility] HospitalIn the event this information is protected by the Federal Confidentiality of Alcohol and Drug Abuse Patient Records regulations: The Federal rules restrict any use of the information to criminally investigate or prosecute any alcohol or drug abuse patient.[facility] Reason for Visit (unrecogniz ed section and content) Specialty Diagnoses / Procedures Referred By Contac t Referred To Contact Diagnoses Procedures OFFICE VISIT, NEW PT., LEVEL 5 TC [facility] [address] [place] [address] [place] [place] [address] Referral ID Status Reason Start Date Expiration Date Visits Requested Visits Authorized [id number] Authorized Patient Cleared - Qualified 100% FAS 03/17/2024 06/15/2024 99 99 Reason Comments Results STD Reason Onset Date Comments Care 05/11/2024 Specialty Diagnoses / Procedures Referred By Contac t Referred To Contact Diagnoses Procedures OFFICE VISIT, NEW PT., LEVEL 5 TC [facility] [address] [place] [address] Phone: tel: [place] [place] [address] Referral ID Status Reason Start Date Expiration Date V isits Requested Visits Authorized [id number] Closed Patient Cleared - Qualified 100% FAS 03/17/2024 06/15/2024 99 99 Reason Comments US Specialty Diagnoses / Procedures Referred By Contac t Referred To Contact [facility] Diagnoses Encounter for supervision of normal first in second trimester (HCC) 16 weeks gestation of (HCC) Procedures OBSTETRIC ULTRASOUND WHI US PREG UTERUS AFTER 1ST TRIMEST GESTATION Haley Navarro MD [address] [place] [address] Phone: tel: fax: [facility] [address] [place] [address] Referral ID Status Reason Start Date Expiration Date V isits Requested Visits Authorized [id number] Closed Auto-Generate d Referral 05/11/2024 05/11/2025 1 1 Reason Onset Date Comments Care 07/04/2024 Reason Onset Date Comments Care 07/27/2024 Reason Onset Date Comments Care 08/15/2024 Reason Onset Date Comments Care 09/05/2024 Reason Onset Date Comments Care 09/19/2024 Specialty Diagnoses / Procedures Referred By Contac t Referred To Contact [facility] Diagnoses 10 weeks gestation of (HCC) Procedures OBSTETRIC ULTRASOUND WHI US PREG UTERUS AFTER 1ST TRIMEST GESTATION BoydenCoreen ott APRN.ACCOUNTS RECEIVABLE BOOKKEEPER [address] [place] [address] Phone: tel: fax:[phone] [address] Referral ID Status Reason Start Date Expiration Date Visits Requested Visits Authorized [id number] Authorized Auto-Generat ed Referral 09/19/2024 03/14/2025 20 20 Specialty Diagnoses / Procedures Referred By Contac t Referred To Contact [facility] Diagnoses 32 weeks gestation of (HCC) Excessive weight gain in , third trimester (HCC) Procedures OBSTETRIC ULTRASOUND WHI US PREG UTERUS AFTER 1ST TRIMEST GESTATION Haley Navarro MD [address] [place] [address] Phone: tel: fax:[phone] [address] Referral ID Status Reason Start Date Expiration Date Visits Requested Visits Authorized [id number] Authorized Auto-Generat ed Referral 09/05/2024 03/14/2025 20 20 Reason Comments Appointment Reason Onset Date Comments Care 10/03/2024 Specialty Diagnoses / Procedures Referred By Contac t Referred To Contact [facility] Diagnoses Polyhydramnios in third trimester complication, single or unspecified fetus (HCC) Encounter for supervision of normal , unspecified, unspecified trimester (HCC) Procedures OBSTETRIC ULTRASOUND WHI US PREG UTERUS AFTER 1ST TRIMEST GESTATION Haley Navarro MD [address] [place] [address] Phone: tel: fax:[phone] [address] Referral ID Status Reason Start Date Expiration Date Visits Requested Visits Authorized [id number] Authorized Auto-Generat ed Referral 10/03/2024 03/14/2025 20 20 Reason Onset Date Comments Care 10/10/2024 Reason Onset Date Comments Population Health Navigation Outreach 10/11/2024 Ob/peds INFORMATION SOURCE (unrecogn ized section and content) DATE CREATED AUTHOR 09/08/2024 [facility] DATE CREATED AUTHOR AUTHOR'S BERNIE FRASER 10/05/2024 [facility] FOR RECORDS PERTAINING TO PATIENTS WHO ARE [...] BE BASED ON THE PRIMARY CLINICAL RECORDS. [facility] [employer] [facility]. provides no warranty or guarantee of the accuracy or completeness of information in this document.
[2024-10-12] MEDS: Lactated Ringers 1,000 ML 50 ML IV (01:40)
[2024-10-12 02:28] LABS: Hematocrit 32.9 % (37-47); Hemoglobin 10.5 g/dL (12.0-15.0); Immature Granulocytes Count 0.220 X10^3/uL (0.0-0.0); Mean Corp Hgb Conc 31.9 g/dL (32-36); Mean Corpuscular Volume 82.3 fL (81-99); Mean Platelet Vol. 10.5 fl (6.2-12.0); NRBC Flagged by Analyzer 0 % (0-5); POSITIVE DIFFERENTIAL YES; Platelet Count 270 K/mm3 (150-450); RBC Distribution Width CV 14.8 % (11.6-14.6); RBC Distribution Width SD 43.6 fl (35.1-43.9); Red Blood Count 4.00 M/mm3 (4.2-5.4); White Blood Count 14.8 K/mm3 (4.4-11.0)
[2024-10-12 02:37] LABS: Syphilis Antibodies Nonreactive (Nonreactive)
[2024-10-12] MEDS: Lactated Ringers 1,000 ML 999 ML IV ×2 (02:49→10:00)
[2024-10-12 02:59] LABS: Differential Indicated SCAN CRITERIA MET
[2024-10-12 03:27] LABS: Differential Comment SCANNED
[2024-10-12] MEDS: fentaNYL-bupivacaine (epidural) 100 ML BAG EPIDURAL ×2 (04:02→07:44)
--- NOTE | 2024-10-12 06:18 | PCM.HP.OB ---
HPI - General General Date of Admission: 10/12/24 HPI Narrative LESLIE AYOUB, is a 19 F at 38.1 who presents with spontaneous rupture of membranes. Maternal Data Information URIAH Calculator Estimated Delivery Date Method Current WG Current Estimate 10/25/24 Manual 38w 1d PFSH [facility] Medical History (Updated 10/12/24 @ 06:22 by Kaycee Pittman CNM) Chlamydia infection affecting Polyhydramnios Home Medications ?Medication ?Instructions ?Recorded ?Last Taken ?Type aspirin 81 mg tablet,delayed 81 mg PO DAILY 05/07/24 08/29/24 08:00 History release 81 mg vits no.130-ferrous fum 1 tab PO DAILY 08/31/24 10/11/24 History 27 mg iron-folic acid 800 mcg tablet ( Vitamin) Allergy/AdvReac Type Severity Reaction Status Date / Time No Known Allergies Allergy Verified 10/12/24 00:42 Surgical History History of appendectomy Social History (Updated 05/07/24 @ 22:24 by Blanche Mota) household members: significant other housing: house Smoking Status: Former smoker History Elective abortions Hx Para 0 Spontaneous abortions Hx # Term Pregnancies Ectopic pregnancies Hx # Pregnancies Multiple births # of living children ROS Eyes Eyes: Denies blurry vision, change in vision or spots in vision ENT HEENT: Denies dizziness or headache(s) Cardiovascular Cardiovascular: Denies abdominal pain, chest pain or dyspnea Respiratory/Chest Respiratory/Chest: Denies cough, dyspnea, shortness of breath at rest or shortness of breath with exertion Gastrointestinal Gastrointestinal: Denies abdominal pain, diarrhea or vomiting Genitourinary Genitourinary: Denies change in urinary stream, difficulty urinating or dysuria Musculoskeletal Musculoskeletal: Reports none Integumentary Integumentary: Denies rash Neurologic Neurologic: Denies dizziness, headache(s), memory loss or weakness Psychiatric Psychiatric: Reports none Vital Signs Vital Signs Vital Signs: 10/12/24 00:37 10/12/24 00:37 10/12/24 00:37 Temperature Temperature Source Pulse Rate 89 Respiratory Rate Blood Pressure 134/89 H BP Systolic 134 BP Diastolic 89 Pulse Ox 95 10/12/24 00:38 10/12/24 00:38 10/12/24 00:38 Temperature 98.8 F Temperature Source Temporal Pulse Rate Respiratory Rate 16 Blood Pressure BP Systolic BP Diastolic Pulse Ox 10/12/24 02:22 10/12/24 02:22 10/12/24 02:22 Temperature Temperature Source Temporal Pulse Rate 77 Respiratory Rate Blood Pressure 140/81 H BP Systolic 140 BP Diastolic 81 Pulse Ox 10/12/24 02:22 10/12/24 02:22 10/12/24 02:22 Temperature 98.8 F Temperature Source Pulse Rate Respiratory Rate 16 Blood Pressure BP Systolic BP Diastolic Pulse Ox 95 10/12/24 03:09 10/12/24 03:09 10/12/24 03:09 Temperature Temperature Source Temporal Pulse Rate 79 Respiratory Rate Blood Pressure 135/80 H BP Systolic 135 BP Diastolic 80 Pulse Ox 10/12/24 03:09 10/12/24 03:09 10/12/24 03:42 Temperature 98.3 F Temperature Source Pulse Rate Respiratory Rate 18 Blood Pressure 135/81 H BP Systolic 135 BP Diastolic 81 Pulse Ox 10/12/24 03:42 10/12/24 03:43 10/12/24 03:43 Temperature Temperature Source Pulse Rate 85 87 Respiratory Rate Blood Pressure BP Systolic BP Diastolic Pulse Ox 97 10/12/24 03:44 10/12/24 03:44 10/12/24 03:48 Temperature Temperature Source Pulse Rate 83 85 Respiratory Rate Blood Pressure BP Systolic BP Diastolic Pulse Ox 89 10/12/24 03:48 10/12/24 03:52 10/12/24 03:52 Temperature Temperature Source Pulse Rate 92 Respiratory Rate Blood Pressure 165/97 H BP Systolic 165 BP Diastolic 97 Pulse Ox 96 10/12/24 03:53 10/12/24 03:53 10/12/24 03:58 Temperature Temperature Source Pulse Rate 91 Respiratory Rate Blood Pressure 165/102 H BP Systolic 165 BP Diastolic 102 Pulse Ox 96 10/12/24 03:58 10/12/24 03:58 10/12/24 03:58 Temperature Temperature Source Pulse Rate 90 84 Respiratory Rate Blood Pressure BP Systolic BP Diastolic Pulse Ox 96 10/12/24 04:00 10/12/24 04:00 10/12/24 04:02 Temperature Temperature Source Pulse Rate 80 Respiratory Rate Blood Pressure 132/94 H BP Systolic 132 BP Diastolic 94 Pulse Ox 88 10/12/24 04:03 10/12/24 04:03 10/12/24 04:03 Temperature Temperature Source Pulse Rate 76 Respiratory Rate Blood Pressure 139/99 H BP Systolic 139 BP Diastolic 99 Pulse Ox 96 10/12/24 04:03 10/12/24 04:05 10/12/24 04:05 Temperature Temperature Source Temporal Pulse Rate Respiratory Rate 18 18 Blood Pressure BP Systolic BP Diastolic Pulse Ox 10/12/24 04:05 10/12/24 04:07 10/12/24 04:07 Temperature 97.7 F L Temperature Source Pulse Rate 81 Respiratory Rate Blood Pressure 139/85 H BP Systolic 139 BP Diastolic 85 Pulse Ox 10/12/24 04:08 10/12/24 04:08 10/12/24 04:08 Temperature Temperature Source Pulse Rate 91 Respiratory Rate 16 Blood Pressure BP Systolic BP Diastolic Pulse Ox 96 10/12/24 04:12 10/12/24 04:12 10/12/24 04:13 Temperature Temperature Source Pulse Rate 85 Respiratory Rate Blood Pressure 164/102 H 141/81 H BP Systolic 164 141 BP Diastolic 102 81 Pulse Ox 10/12/24 04:13 10/12/24 04:13 10/12/24 04:13 Temperature Temperature Source Pulse Rate 88 Respiratory Rate 20 H Blood Pressure BP Systolic BP Diastolic Pulse Ox 98 10/12/24 04:17 10/12/24 04:17 10/12/24 04:18 Temperature Temperature Source Pulse Rate 80 80 Respiratory Rate Blood Pressure 147/87 H BP Systolic 147 BP Diastolic 87 Pulse Ox 10/12/24 04:18 10/12/24 04:18 10/12/24 04:22 Temperature Temperature Source Pulse Rate Respiratory Rate 18 Blood Pressure 118/69 BP Systolic 118 BP Diastolic 69 Pulse Ox 97 10/12/24 04:22 10/12/24 04:23 10/12/24 04:23 Temperature Temperature Source Pulse Rate 79 83 Respiratory Rate Blood Pressure 125/69 H BP Systolic 125 BP Diastolic 69 Pulse Ox 10/12/24 04:23 10/12/24 04:23 10/12/24 04:23 Temperature Temperature Source Pulse Rate 81 Respiratory Rate 16 Blood Pressure BP Systolic BP Diastolic Pulse Ox 95 10/12/24 04:24 10/12/24 04:24 10/12/24 04:27 Temperature Temperature Source Pulse Rate 81 Respiratory Rate Blood Pressure 125/73 H BP Systolic 125 BP Diastolic 73 Pulse Ox 93 10/12/24 04:27 10/12/24 04:28 10/12/24 04:28 Temperature Temperature Source Pulse Rate 82 78 Respiratory Rate Blood Pressure BP Systolic BP Diastolic Pulse Ox 95 10/12/24 04:59 10/12/24 04:59 10/12/24 04:59 Temperature Temperature Source Pulse Rate 80 Respiratory Rate Blood Pressure 161/75 H 124/76 H BP Systolic 161 124 BP Diastolic 75 76 Pulse Ox 10/12/24 04:59 10/12/24 06:05 10/12/24 06:05 Temperature 98.2 F Temperature Source Temporal Pulse Rate 78 Respiratory Rate Blood Pressure BP Systolic BP Diastolic Pulse Ox 10/12/24 06:05 10/12/24 06:06 10/12/24 06:06 Temperature Temperature Source Pulse Rate 76 Respiratory Rate 18 Blood Pressure 126/72 H BP Systolic 126 BP Diastolic 72 Pulse Ox Weight Weight: 221 lb Body Mass Index (BMI) 34.1 Physical Exam Const alert, oriented x3 and no apparent distress General Appearance: cooperative Orientation / Consciousness: awake Exam Limitations: no limitations HEENT normocephalic Head and Scalp: normal to inspection Eyes General Eye: normal appearance of both eyes Neck full ROM and no lymphadenopathy Lymph Lymphatic: no lymphadenopathy noted Chest inspection of chest normal Resp normal respiratory effort, normal air movement and clear to auscultation bilaterally Effort and Inspection: able to speak in complete sentences and symmetric chest movement Cardio regular rate and regular rhythm GI normal to inspection, nondistended, normoactive bowel sounds Manual OB Exam: presentation cephalic Back/Spine normal ROM Extremity full ROM and no calf tenderness Skin no rashes or lesions noted General Skin Exam: no breakdown Neuro oriented x3 and CN's II-XII intact bilaterally Psych mental status grossly normal and thought process normal Labs Labs Labs: Blood Type O POSITIVE Antibody Screen NEGATIVE Hct 32.9 % (37-47) L Hgb 10.5 g/dL (12.0-15.0) L Obstetrics Ultrasound Syphilis Total Ab Nonreactive (Nonreactive) Assessment & Plan (1) 38 weeks gestation of : (2) Excessive weight gain affecting : (3) Obesity affecting : (4) Spontaneous rupture of amniotic membranes: (5) Polyhydramnios: (6) Chlamydia infection affecting : COMMENT: positive at beginning of , negative 06/08/24 PLAN: Plan EFW at 36 weeks 87% Grossly ruptured for large amount of clear fluid GBS negative CE 6.5/90/-2 Epidural placed this morning Start Pitocin at 2 mu/min and increase per policy Dr. Medrano notified of admission and is collaborating physician
[2024-10-12] MEDS: Oxytocin 15 Units/NS 250ml 15 UNITS/250 ML IV.SOLN 2 UNITS IV (06:36)
[2024-10-12] MEDS: Lactated Ringers 1,000 ML 200 ML IV (07:44)
[2024-10-12] MEDS: Oxytocin 15 Units/NS 250ml 15 UNITS/250 ML IV.SOLN 334 UNITS IV (12:29)
--- NOTE | 2024-10-12 12:42 | EX.PCM.OBVAG ---
Assessment & Plan (1) Vaginal delivery: (2) First degree perineal laceration: Maternal Data Information URIAH Calculator Estimated Delivery Date Method Current WG Current Estimate 10/25/24 Manual 38w 1d Vaginal Delivery Maternal Presentation Maternal Presentation: Spontaneous Rupture of Membranes Vaginal Delivery Information Procedure Performed: Spontaneous Vaginal Delivery Surgeon/Practitioner: Corinna Sandhu Date of Procedure: 10/12/24 Pre-Procedure Diagnosis: Spontaneous Rupture of membranes Post-Procedure Diagnosis: Vaginal delivery, first degree perineal laceration Type of anesthesia: Epidural Estimated Blood Loss: 400ml Time of Delivery: 12:23 Findings Description of procedure: Progressed to complete with urge to push. Epidural for pain management. of viable male infant over first degree perineal laceration. APGARS respectively. head delivered with body immediately forthcoming. Placed on maternal abdomen, strong cry. Mouth and nares suctioned for secretions. Pitocin started for active 3rd stage management. Cord doubly clamped and cut by FOB after pulsations ceased, delayed cord clamping. Placenta delivered intact via goodwin, 3 vessel cord intact. Perineum inspected and revealed first degree perineal laceration. Repaired with 3.0 vicryl rapide and epidural. Fundus firm and hemostasis achieved. EBL 400ml. Vaginal sweep completed by me, sponge and instrument correct. Mom and baby stable, planning to breastfeed. Family bonding well. notified of delivery. Presentation: Vertex and YESICA Amniotic Membrane Rupture Type: Spontaneous Amniotic Fluid Description: Clear Placental Delivery Description: Spontaneous Placenta Disposition: [facility] Specimen collected: No Cord Vessel Description: 3 Vessels Cord Entanglement: None A Gender: Male (1 minute): 8 (5 minute): 9 Delayed Cord Clamping: Yes Second Mate client experience manager: No Post Vaginal Deli Medications given after delivery: IV Pitocin Episiotomy Description: None Laceration: Perineal Extension/lac and 1st degree Complication Complications: No
[2024-10-12] MEDS: Oxytocin 15 Units/NS 250ml 15 UNITS/250 ML IV.SOLN 83 UNITS IV (13:13)
[2024-10-12] MEDS: NIFEdipine 30 MG Tablet PO (14:51)
[2024-10-12 15:22] LABS: Prothrombin Time (Protime)PT. 13.7 SECONDS (11.7-14.9)
[2024-10-12 15:23] LABS: Partial Thromboplast Time 25.3 Seconds (24.1-36.2)
[2024-10-12 15:24] LABS: Hematocrit 33.8 % (37-47); Hemoglobin 10.9 g/dL (12.0-15.0); Mean Corp Hgb Conc 32.2 g/dL (32-36); Mean Corpuscular Volume 81.3 fL (81-99); Mean Platelet Vol. 10.5 fl (6.2-12.0); Platelet Count 277 K/mm3 (150-450); RBC Distribution Width CV 14.9 % (11.6-14.6); RBC Distribution Width SD 43.5 fl (35.1-43.9); Red Blood Count 4.16 M/mm3 (4.2-5.4); White Blood Count 27.3 K/mm3 (4.4-11.0)
[2024-10-12 15:46] LABS: AST(SGOT) 21 U/L (<=31); Alanine Aminotransfer ALT/SGPT 8 U/L (<=34); Estimated Creatinine Clearance 188.22 ml/min (50-250)
[2024-10-12 16:28] LABS: Uric Acid 6.1 mg/dL (2.6-6.0)
[2024-10-13 04:00] VITALS: BP 118/71; PULSE 99; RESP 16; TEMP 36.7; O2SAT 96
[2024-10-13 05:45] LABS: Hematocrit 26.7 % (37-47); Hemoglobin 8.9 g/dL (12.0-15.0); Immature Granulocytes Count 0.230 X10^3/uL (0.0-0.0); Mean Corp Hgb Conc 33.3 g/dL (32-36); Mean Corpuscular Volume 80.9 fL (81-99); Mean Platelet Vol. 9.8 fl (6.2-12.0); NRBC Flagged by Analyzer 0 % (0-5); POSITIVE DIFFERENTIAL YES; Platelet Count 209 K/mm3 (150-450); RBC Distribution Width CV 15.2 % (11.6-14.6); RBC Distribution Width SD 44.2 fl (35.1-43.9); Red Blood Count 3.30 M/mm3 (4.2-5.4); White Blood Count 18.5 K/mm3 (4.4-11.0)
[2024-10-13 05:47] LABS: Differential Indicated SCAN CRITERIA MET
[2024-10-13 06:31] LABS: Differential Comment SCANNED
--- NOTE | 2024-10-13 08:48 | PN_ITS ---
Subjective Subjective patient seen at bedside, doing well. Patient reports good pain control. lochia mild. considering dc home later today. Breast feeding - using to help- not sure she wants to continue to try. Objective Data Objective Data Vital Signs: Vital Signs Temp Pulse Resp BP Pulse Ox O2 Del Method 98.1 F 99 16 118/71 96 Room Air 10/13/24 04:00 10/13/24 04:00 10/13/24 04:00 10/13/24 04:00 10/13/24 04:00 10/13/24 04:00 Oxygen Delivery Method Room Air Weight: 100.244 kg Body Mass Index (BMI) 34.1 Intake & Output: Intake and Output for Last 24 Hours 10/11/24 10/12/24 10/13/24 23:59 23:59 23:59 Intake Total 4337.13 / 4337.13 Output Total 1500 / 1500 Balance 2837.13 / 2837.13 Lab / Micro Data 10/13/24 05:30 10/12/24 14:40 Labs: Laboratory Results - last 24 hr 10/12/24 14:40: WBC 27.3 H, RBC 4.16 L, Hgb 10.9 L, Hct 33.8 L, MCV 81.3, MCH 26.2 L, MCHC 32.2, RDW Std Deviation 43.5, RDW Coeff of Yessy 14.9 H, Plt Count 277, MPV 10.5, PT 13.7, INR 1.0, APTT 25.3, Creatinine 0.58 L, Estim Creat Clear Calc 188.22, Est GFR (MDRD) Non-Af 133, Uric Acid 6.1 H, AST 21, ALT 8 10/13/24 05:30: WBC 18.5 H, RBC 3.30 L, Hgb 8.9 L, Hct 26.7 L, MCV 80.9 L, MCH 27.0, MCHC 33.3, RDW Std Deviation 44.2 H, RDW Coeff of Yessy 15.2 H, Plt Count 209, MPV 9.8, Immature Gran % (Auto) 1.200 H, Neut % (Auto) 73.4 H, Lymph % (Auto) 16.2 L, [place] % (Auto) 8.2, Eos % (Auto) 0.8, Baso % (Auto) 0.2, Absolute Neuts (auto) 13.6 H, Absolute Lymphs (auto) 3.00, Nucleated RBC % 0, Differential Comment SCANNED Physical Exam Narrative Abd: fundus firm. Const alert and oriented x3 General Appearance: cooperative HEENT normocephalic Neck General: normal visual inspection GI soft to palpation and non-distended GI Narrative: Fundus firm Extremity normal to inspection and no calf tenderness Skin no rashes or lesions noted Neuro oriented x3 and CN's II-XII intact bilaterally Psych mental status grossly normal Assessment & Plan Assessment/Plan (1) First degree perineal laceration: (2) Vaginal delivery: (3) Polyhydramnios: (4) Obesity affecting : (5) Acute on chronic anemia: PLAN: Plan PPD#1 , Doing well Routine care pain mgmt ambulation IV Iron today then continue PO iron after discharge dc home later today if desired by patient time spent with gaby face to face on day of discharge was <30min
--- NOTE | 2024-10-13 08:51 | DCINST_ITS ---
Discharge Instructions DC O2, CPAP, BIPAP needs Home O2 Discharge instructions: No Dressing / Incision May resume sexual activity in: 6-8 weeks Dressing / Incision Call your doctor if you observe: Fever of 101 or Higher, Inability to urinate, Using more than 1 pad per hour and Uncontrolled pain Follow Up Care Please Follow Up With: Corinna Sandhu CNM When: 1 week post and again at 6 weeks post . [phone]: if you had PREECLAMPSIA or other Blood pressure concerns in labor you should be seen in 48-72 hours in the office. Test Results: Test results from this visit will be discussed in further detail at your follow- up appointment, if applicable. Discharge Plan Admission Admit Date/Time: 10/12/24 01:00 Attending Provider: Corinna Sandhu Primary Care Provider: Oseas Alvarez Discharge Orders/Prescriptions Prescriptions: No Action aspirin 81 mg tablet,delayed release (DR/EC) 81 mg PO DAILY Vitamin 27 mg iron- 800 mcg tablet 1 tab PO DAILY Referrals / Follow Up: Oseas Alvarez MD [Primary Care Provider] -
--- NOTE | 2024-10-13 08:52 | DCINST_ITS ---
Discharge Instructions DC O2, CPAP, BIPAP needs Home O2 Discharge instructions: No Dressing / Incision May resume sexual activity in: 6-8 weeks Dressing / Incision Call your doctor if you observe: Fever of 101 or Higher, Inability to urinate, Using more than 1 pad per hour and Uncontrolled pain Follow Up Care Please Follow Up With: Corinna Sandhu CNM Test Results: Test results from this visit will be discussed in further detail at your follow- up appointment, if applicable. Discharge Plan Admission Admit Date/Time: 10/12/24 01:00 Attending Provider: Corinna Sandhu Primary Care Provider: Oseas Alvarez Discharge Orders/Prescriptions Prescriptions: New acetaminophen 500 mg Tablet 1,000 mg PO Q6H PRN PRN (Reason: Pain 1-10 Or Fever) Qty: 0 0RF ibuprofen 600 mg Tablet 600 mg PO Q6H PRN PRN (Reason: Pain Score 1-10) Qty: 0 0RF Continued Vitamin 27 mg iron- 800 mcg tablet 1 tab PO DAILY Discontinued aspirin 81 mg tablet,delayed release (DR/EC) 81 mg PO DAILY Referrals / Follow Up: Oseas Alvarez MD [Primary Care Provider] - Disposition Disposition (needs filled in before D/C Order can be placed): Home, Self Care
[2024-10-13 10:00] VITALS: BP 117/73; PULSE 94; RESP 16; TEMP 36.8; O2SAT 97
--- NOTE | 2024-10-13 13:10 | CASEMGMT ---
Social Work Assessment Labor and Delivery Unit Patient Address: [address] [place] [address] [place] [address] Phone number: [phone] Date of Referral: 10/12/24 Time of Referral:? 0209 Referred By: Kaycee Pittman Date of Intervention: ??10/13/24 Time of Intervention:? 1120 Reason for Referral:? father addict and alcoholic Sw completed chart review and acknowledges social work consult. Sw presented to bedside and introduced self to mother of baby (MOB- Fatoumata) and father of baby (FOB- Radhames). Sw explained reason for sw involvement and completed psychosocial assessment. History obtained from: medical records, MOB and FOB Household composition: GONZALEZ states that she and FOB are currently residing with maternal grandma. baby also reside with parents when ready for discharge. GONZALEZ denies any problem with housing, stating that their home is safe and secure. Patient's parent/guardian status: GONZALEZ states that she and FOB met through MOBs sister and have been together for a year and a half. baby is first baby for both parents. No concerns reported of domestic violence or intimate partner violence. ? ? Medical History: ?GONZALEZ is 19 year old female who is 1, para 0- now 1 following labor and delivery of . GONZALEZ received routine care during with [facility]. GONZALEZ presented to hospital following spontaneous rupture of membrane. GONZALEZ delivered baby via spontaneous vaginal delivery on 10/12/24 at 38 weeks gestation. Baby boy, named Ellen Moreau, was born weighing 8lb 15oz with apgars of 8 and 9 at one and five minutes, respectfully. GONZALEZ is mostly bottle feeding and baby will be followed by Dr. Jackson for pediatrics. Educational Status:? Both parents graduated high school. No problems with reading, learning or comprehension. Financial Status: GONZALEZ is employed working at [employer]. Supplies:?? All necessary baby supplies obtained, including: car seat, safe sleep space, clothes, diapers and wipes. Childcare/Caregiver(s):? MOB and FOB state that they will be the primary caregivers to baby. Transportation:?Both parents have their drivers license and have reliable means of transportation. ? Programs/Agencies Involved: ???GONZALEZ is connected to resources through [employer]: Medicaid, and food benefits. GONZALEZ is also in the process of applying for WIC. Children Services/Legal Issues:?No prior involvement with children services, no issues or concerns warranting referral to be made at this time. ?? Behavioral Health Issues: ??Mental Health History:Both parents deny mental health history??? Substance Use History: FOB states that he smokes marijuana from time to time. FOB states that he does not smoke around MOB. MOB denies substance use. ?? Family History: Both parents state that they have parents with substance use history. Sw explained the importance of being mindful of their genetic history, and utilizing healthy and safe coping skills opposed to seeking comfort from drugs or alcohol when they are stressed or overwhelmed.? Drug Screens: ?No drug screens observed while completing chart reviw. ? Family/Social Stressors:?MOB denies any concerns or stressors at this time. Support Systems: MOB states that FOB and both grandma's are her biggest supports Depression/Shaken Baby/Safe Sleeping:? Sw educated MOB and FOB on signs and symptoms of baby blues and depression and anxiety to be mindful of during this period. MOB states that she felt really good during her , and reports that since baby has been born she has not felt anxious or down. FOB states that if MOB were to struggle with her mental health during this period he would be able to recognize that, and he would know how to help and support her. Sw educated parents on shaken baby prevention and ABCs of safe sleep, parents express understanding. ASSESSMENT:? MOB and baby admitted following labor and delivery. MOB and FOB were welcoming of meeting with sw to complete assessment. MOB and FOB deny mental health history, sw explained that MOB may still be at risk for experiencing symptoms during this period due to being a first time mom and not knowing what to expect. Parents were talkative and engaging throughout conversation. Parents state that they have family history of addiction, but do not use substances other than FOB states that he does smoke marijuana from time to time. Sw explained importance of keeping substances away from FOB. Sw told FOB to not use around , to wash his hands, face and change shirt prior to holding baby, FOB expressed agreement. Parents have all necessary baby items and have natural supports in place. PLAN:? No other services requested or indicated. MOB and baby to be discharged when medically ready. Parents were provided literature regarding: signs and symptoms of baby blues and mood and anxiety disorders, Help Me Grow, shaken baby prevention, ABCs of safe sleep and a list of county resources that are available for them should any needs present themselves. Wojciech Riggs, SOUND DESIGNER, INTAKE MANAGER
[2024-10-13 13:30] VITALS: BP 112/72; PULSE 117; RESP 16; TEMP 36.7; O2SAT 98
[2024-10-13 17:51] VITALS: BP 131/87; PULSE 88; RESP 16; O2SAT 98
[2024-10-13 19:35] VITALS: BP 135/79; PULSE 85; RESP 16; TEMP 36.8
[2024-10-14 05:00] VITALS: BP 122/75; PULSE 87; RESP 16; TEMP 36.7
--- NOTE | 2024-10-14 05:30 | PCM.PROGNOTE ---
Subjective Subjective patient seen at bedside, doing well. Patient reports good pain control. lochia mild. Objective Data Objective Data Vital Signs: Vital Signs Temp Pulse Resp BP Pulse Ox O2 Del Method 98.1 F 87 16 122/75 H 98 Room Air 10/14/24 05:00 10/14/24 05:00 10/14/24 05:00 10/14/24 05:00 10/13/24 17:51 10/14/24 05:00 Oxygen Delivery Method Room Air Weight: 100.244 kg Body Mass Index (BMI) 34.1 Intake & Output: Intake and Output for Last 24 Hours 10/12/24 10/13/24 10/14/24 23:59 23:59 23:59 Intake Total 4337.13 / 4337.13 Output Total 1500 / 1500 Balance 2837.13 / 2837.13 Lab / Micro Data 10/13/24 05:30 10/12/24 14:40 Labs: Laboratory Results - last 24 hr 10/13/24 05:30: WBC 18.5 H, RBC 3.30 L, Hgb 8.9 L, Hct 26.7 L, MCV 80.9 L, MCH 27.0, MCHC 33.3, RDW Std Deviation 44.2 H, RDW Coeff of Yessy 15.2 H, Plt Count 209, MPV 9.8, Immature Gran % (Auto) 1.200 H, Neut % (Auto) 73.4 H, Lymph % (Auto) 16.2 L, [place] % (Auto) 8.2, Eos % (Auto) 0.8, Baso % (Auto) 0.2, Absolute Neuts (auto) 13.6 H, Absolute Lymphs (auto) 3.00, Nucleated RBC % 0, Differential Comment SCANNED Physical Exam Narrative Abd: fundus firm. Const alert and oriented x3 General Appearance: cooperative HEENT normocephalic Neck General: normal visual inspection GI soft to palpation and non-distended GI Narrative: Fundus firm Extremity normal to inspection and no calf tenderness Skin no rashes or lesions noted Neuro oriented x3 and CN's II-XII intact bilaterally Psych mental status grossly normal Assessment & Plan Assessment/Plan (1) Acute on chronic anemia: (2) First degree perineal laceration: (3) Vaginal delivery: PLAN: Plan PPD#2 , Doing well Routine care pain mgmt ambulation continue po iron dc home today
[2024-10-14 08:49] VITALS: BP 108/66; PULSE 75; RESP 16; TEMP 36.5; O2SAT 96
[2024-10-14 12:26] VITALS: BP 122/88; PULSE 87; RESP 16; TEMP 36.8; O2SAT 97
== END 2024-10-14 13:10 | disposition home or self-care (01) | DRG 560 ==
LOC: WPOUT 01:13 → WP 01:14
PROVIDERS: Admitting Provider Advanced Practice Midwife; PCP Family Medicine; Visit Provider Advanced Practice Midwife
DX: O40.3XX0 Polyhydramnios, third trimester, not applicable or unspecified (principal); Z37.0 Single live birth; O26.03 Excessive weight gain in pregnancy, third trimester; O99.214 Obesity complicating childbirth; O70.0 First degree perineal laceration during delivery; O99.02 Anemia complicating childbirth; Z87.891 Personal history of nicotine dependence; Z3A.38 38 weeks gestation of pregnancy; Z86.19 Personal history of other infectious and parasitic diseases
CPT/HCPCS: 59025; 59050; 82565; 84450; 84460; 84550; 85025; 85027; 85610; 85730; 86780; 86850; 86900; 86901; 99221; G0378